=== PATIENT | female | born 1955 | race Two or more races ===

== ENCOUNTER 2021-02-08 01:49 | Inpatient (IN) | payer OTHER, SELFPAY ==
[2021-02-08] VITALS (13 sets, daily range): BP systolic 108–164; BP diastolic 47–63; PULSE 70–104; RESP 20–28; TEMP 36.6–37.2; O2SAT 92–100; BMI 35.8; BMI 36.2
--- NOTE | ~2021-02-08 | XR_ITS ---
EXAMINATION: XR CHEST CLINICAL INFORMATION: Shortness of breath COMPARISON: 01/11/2012 TECHNIQUE: Frontal view of the chest was obtained. FINDINGS: Cardiac leads overlie the chest. The lungs are well expanded. There is no focal consolidation, edema, or effusion. Bronchial wall thickening noted. No pneumothorax. The cardiomediastinal silhouette is within normal limits. No acute osseous abnormality. XR/XR chest 1V IMPRESSION: No dense consolidation. Bronchial wall thickening can be seen with a small airways process such as asthma or atypical/viral infection.
--- NOTE | 2021-02-08 02:02 | ECG_ITS ---
Test Reason : sob Blood Pressure : / mmHG Vent. Rate : 070 BPM Atrial Rate : 070 BPM P-R Int : 164 ms QRS Dur : 088 ms QT Int : 392 ms P-R-T Axes : 045 041 112 degrees QTc Int : 423 ms Normal sinus rhythm Nonspecific T wave abnormality Inferior leads Lateral leads Abnormal ECG When compared with ECG of 11-JAN-2012 12:44, Premature ventricular complexes are no longer Present T wave inversion less evident in Inferior leads Referred By: Petra Patino Electronically Signed By:AGUILAR EUBANKS MD
--- NOTE | 2021-02-08 02:02 | ED.SOB ---
HPI - SOB/Dyspnea General Chief Complaint: Dyspnea Stated Complaint: difficulty breathing Time Seen by Provider: 02/08/21 02:02 Source: patient Mode of arrival: EMS History of Present Illness HPI Narrative: 65-year-old female smoker, history of asthma/diabetes/CKD presents via EMS with worsening shortness of breath over the past 2 days with dry cough and stating that she has been consistently using her inhaler every 4 hours without improvement. She denies any associated fever, chills, chest pain/palpitations, lower extremity swelling or orthopnea. Related Data Allergies Allergy/AdvReac Type Severity Reaction Status Date / Time lisinopril [From ZESTRIL] Allergy Intermediate CHOKING Unverified 12/14/19 15:15 amlodipine Allergy Unknown Verified 02/08/21 01:59 Review of Systems Review of Systems: Pertinent positives and negatives as stated in HPI 10 point review of systems is otherwise negative. [facility] Past Medical History Source: nursing notes reviewed Medical History Asthma Diabetes HTN (hypertension) Social History Social History Alcohol intake: unknown Patient Tobacco Use Status: Former Tobacco user Use of substances other than those prescribed or required for medical reasons: No Advance Directives: No Advance Directives Information Provided: Yes Physical Exam Vital Signs: Vital Signs: Last Vital Signs Temp 98.9 F 02/08/21 01:54 Pulse 95 02/08/21 03:29 Resp 20 02/08/21 01:54 BP 164/63 H 02/08/21 01:54 Pulse Ox 96 02/08/21 01:54 Body Mass Index 35.8 VITAL SIGNS: Reviewed. GENERAL: Well developed, well nourished, in no acute distress. HEAD: Normocephalic/atraumatic EYES: PERRLA, EOMI OROPHARYNX: no oral lesions noted, posterior pharynx clear NECK: Supple, no adenopathy LUNGS: Decreased air movement with expiratory wheeze, mild tachypnea SpO2<96> CARDIOVASCULAR: Regular rate and rhythm without noted murmurs, no JVD or lower extremity edema. ABDOMEN: Soft, non-tender, non-distended with bowel sounds. SKIN: Inspection of the skin reveals no rashes NEUROLOGIC: Alert and oriented x 4. Course Course Course Narrative: 65-year-old female with history and clinical presentation consistent with asthma exacerbation but will rule out cardiopulmonary etiologies. Review of all investigations consistent with asthma exacerbation and although the BNP is noted to be slightly elevated as well as the potassium, however this is thought to be secondary to underlying CKD. Patient has received 2- hour long albuterol treatments with magnesium sulfate and steroids provided. On reassessment patient is improved, but remains short of breath with expiratory wheezing and noted to be 90-91% when sleeping. I discussed the case with the inpatient hospitalist who accepts admission. MDM - SOB/Dyspnea Lab Data Result diagrams: 02/08/21 02:13 02/08/21 02:13 Labs: Lab Results 02/08/21 02/08/21 02/08/21 Range/Units 02:09 02:12 02:13 WBC 6.4 (4.8-10.8) X10*3/uL RBC 3.70 L (4.20-5.50) X10*6/uL Hgb 10.2 L (12.0-16.0) g/dl Hct 32.0 L (37.0-47.0) % MCV 86.5 (80.0-98.0) fL MCH 27.6 (27.0-33.0) pg MCHC 31.9 (31.0-35.0) g/dl RDW 14.1 (11.0-16.0) % Plt Count 145 L (160-400) X10*3/uL MPV 12.8 H (9.4-12.3) fL Immature Gran % (Auto) 0.5 H (0.0-0.4) % Neut % (Auto) 70.7 (45-73) % Lymph % (Auto) 14.4 L (20-40) % [place] % (Auto) 10.2 (2-11) % Eos % (Auto) 4.0 (0-4) % Baso % (Auto) 0.2 (0-2) % Lymph # (Auto) 0.9 L (1.2-4.9) X10*3/uL [place] # (Auto) 0.7 (0.1-1.2) X10*3/uL Eos # (Auto) 0.3 (0.0-0.4) X10*3/uL Baso # (Auto) 0.0 (0.0-0.2) X10*3/uL Abs Immat Gran (auto) 0.03 (0.00-0.03) X10*3/uL Absolute Neuts (auto) 4.6 (2.0-8.3) x10*3/uL Absolute Nucleated RBC 0.000 (0.0-0.012) X10*3/uL Nucleated RBC % (auto) 0.0 (0.0-0.2) /100WBC Sodium (135-145) mmol/L Potassium (3.3-5.1) mmol/L Chloride (96-108) mmol/L Carbon Dioxide (22-29) mmol/L Anion Gap (12-20) BUN (9-16) mg/dL Creatinine (0.5-1.4) mg/dL Estim Creat Clear Calc Estimated GFR POC Glucose 192 H (60-115) mg/dL Random Glucose (60-115) mg/dL Calcium (8.4-10.2) mg/dL Magnesium (1.6-2.6) mg/dL Total Bilirubin (0.0-1.0) mg/dL AST (5-31) U/L ALT (0-31) U/L Alkaline Phosphatase (39-117) U/L B-Natriuretic Peptide (<100) pg/mL Total Protein (6.5-8.0) g/dL Albumin (3.5-5.0) g/dL COVID-19 (LETTY) Negative (Negative) COVID-19 Clin Com See Note 02/08/21 02/08/21 Range/Units 02:13 02:13 WBC (4.8-10.8) X10*3/uL RBC (4.20-5.50) X10*6/uL Hgb (12.0-16.0) g/dl Hct (37.0-47.0) % MCV (80.0-98.0) fL MCH (27.0-33.0) pg MCHC (31.0-35.0) g/dl RDW (11.0-16.0) % Plt Count (160-400) X10*3/uL MPV (9.4-12.3) fL Immature Gran % (Auto) (0.0-0.4) % Neut % (Auto) (45-73) % Lymph % (Auto) (20-40) % [place] % (Auto) (2-11) % Eos % (Auto) (0-4) % Baso % (Auto) (0-2) % Lymph # (Auto) (1.2-4.9) X10*3/uL [place] # (Auto) (0.1-1.2) X10*3/uL Eos # (Auto) (0.0-0.4) X10*3/uL Baso # (Auto) (0.0-0.2) X10*3/uL Abs Immat Gran (auto) (0.00-0.03) X10*3/uL Absolute Neuts (auto) (2.0-8.3) x10*3/uL Absolute Nucleated RBC (0.0-0.012) X10*3/uL Nucleated RBC % (auto) (0.0-0.2) /100WBC Sodium 136 (135-145) mmol/L Potassium 5.6 H (3.3-5.1) mmol/L Chloride 108 (96-108) mmol/L Carbon Dioxide 21 L (22-29) mmol/L Anion Gap 13 (12-20) BUN 30 H (9-16) mg/dL Creatinine 2.16 H (0.5-1.4) mg/dL Estim Creat Clear Calc 28.9 Estimated GFR 23 POC Glucose (60-115) mg/dL Random Glucose 194 H (60-115) mg/dL Calcium 8.2 L (8.4-10.2) mg/dL Magnesium 1.3 L* (1.6-2.6) mg/dL Total Bilirubin 0.2 (0.0-1.0) mg/dL AST 14 (5-31) U/L ALT 14 (0-31) U/L Alkaline Phosphatase 83 (39-117) U/L B-Natriuretic Peptide 125 H (<100) pg/mL Total Protein 6.7 (6.5-8.0) g/dL Albumin 3.7 (3.5-5.0) g/dL COVID-19 (LETTY) (Negative) COVID-19 Clin Com ECG Data Attestation: I personally reviewed and interpreted this ECG as follows: Prior ECG tracings: available for review (01/11/2012 no significant changes from prior) Interpretation: Normal sinus rhythm, HR -70, no STEMI, LA/QRS/QTC are within normal limits. Discharge Plan Discharge Patient Disposition: Admitted As Inpatient
[2021-02-08 02:16] LABS: Glucose, Whole Blood 192 mg/dL (60-115)
[2021-02-08 02:17] LABS: MANUAL DIFF FLAG NO
[2021-02-08] MEDS: Albuterol Sulfate (0.083%) 2.5 MG/3 ML VIAL.NEB 10 MG INHALE ×2 (02:17→03:27)
[2021-02-08 02:20] LABS: Basophils Percent Auto 0.2 % (0-2); Eosinophils Absolute Auto 0.3 X10*3/uL (0.0-0.4); Hemoglobin 10.2 g/dl (12.0-16.0); Imm Gran Abs Auto 0.03 X10*3/uL (0.00-0.03); Imm Gran Pct Auto 0.5 % (0.0-0.4); Lymphocytes Absolute Auto 0.9 X10*3/uL (1.2-4.9); Lymphocytes Percent Auto 14.4 % (20-40); Mean Corpuscular HGB Conc 31.9 g/dl (31.0-35.0); Mean Corpuscular Hemoglobin 27.6 pg (27.0-33.0); Mean Corpuscular Volume 86.5 fL (80.0-98.0); Mean Platelet Volume 12.8 fL (9.4-12.3); Monocytes Absolute Auto 0.7 X10*3/uL (0.1-1.2); Monocytes Percent Auto 10.2 % (2-11); Neutrophils Absolute Auto 4.6 x10*3/uL (2.0-8.3); Neutrophils Percent Auto 70.7 % (45-73); Platelet Count 145 X10*3/uL (160-400); Red Cell Distribution Width 14.1 % (11.0-16.0); White Blood Count 6.4 X10*3/uL (4.8-10.8)
[2021-02-08 02:35] LABS: COVID-19 Test Negative (Negative); IDNOW Serial# 9DD0AD1C
[2021-02-08 02:54] LABS: Alanine Aminotransferase 14 U/L (0-31); Albumin Level 3.7 g/dL (3.5-5.0); Alkaline Phosphatase 83 U/L (39-117); Anion Gap 13 (12-20); Aspartate Amino Transferase 14 U/L (5-31); Bilirubin Total 0.2 mg/dL (0.0-1.0); Blood Urea Nitrogen 30 mg/dL (9-16); Calcium 8.2 mg/dL (8.4-10.2); Carbon Dioxide 21 mmol/L (22-29); Chloride 108 mmol/L (96-108); Creatinine Clr Calc Pharmacy 28.9; Estimated Glomerular Filt Rate 23; Glucose Random 194 mg/dL (60-115); Magnesium 1.3 mg/dL (1.6-2.6); Potassium 5.6 mmol/L (3.3-5.1); Sodium 136 mmol/L (135-145); Total Protein 6.7 g/dL (6.5-8.0)
[2021-02-08] MEDS: methylPREDNISolone Sod Succ 125 MG/2 ML VIAL IVPUSH (03:24)
[2021-02-08] MEDS: Magnesium Sulfate/D5W 1 GM/100 ML PIGGYBACK IV (03:24)
[2021-02-08 04:02] LABS: B Type Natriuretic Peptide 125 pg/mL (<100)
--- NOTE | 2021-02-08 04:13 | PM.IMHP ---
History of Present Illness Date of Service: 02/08/21 Chief Complaint: SOB 65-year-old female with a past medical history of hypertension, hyperlipidemia, diabetes, asthma, chronic kidney disease presented to the hospital with a chief complaint of shortness of breath. Patient reported that over the past 2 days she has been having shortness of breath, constant in nature; not improving with her home inhalers; hence decided to come to the ER for further evaluation. Denies any cough or sputum production. Denies any GI or symptoms. Denies any chest pain palpitations lightheadedness or dizziness. Review of all other systems is negative except mentioned above ER course: Per ER team patient received multiple doses of nebulizer treatments and steroids and still wheezing hence decided admitted to the hospital for acute asthma exacerbation. Also noted to have potassium 5.6 and low magnesium. Magnesium has been repleted. [facility] Medical History Asthma Diabetes HTN (hypertension) Pertinent family history: Sister had kidney disease Social History Alcohol intake: unknown Patient Tobacco Use Status: Former Tobacco user Use of substances other than those prescribed or required for medical reasons: No Advance Directives: No Advance Directives Information Provided: Yes Meds Allergies Allergy/AdvReac Type Severity Reaction Status Date / Time lisinopril [From ZESTRIL] Allergy Intermediate [place]OKING Unverified 12/14/19 15:15 amlodipine Allergy Unknown Verified 02/08/21 01:59 Active Medications: Current Medications Acetaminophen (Acetaminophen 325 Mg Tablet) 650 mg PO Q6H PRN PRN Reason: Pain, Mild (Pain Scale 1-3) Albuterol Sulfate (Albuterol Sulfate (0.083%) 2.5 Mg/3 Ml Vial.Neb) 2.5 mg INHALE RQ4H WHILE AWAKE [place] Dextrose (Dextrose 50 % 25 Gm/50 Ml Vial) 25 gm IVPUSH Q15M PRN; Protocol PRN Reason: per Hypoglycemia Standing Ord. Enoxaparin Sodium (Enoxaparin Sodium 40 Mg/0.4 Ml Syringe) 40 mg SUBCUT Q24H [place] Glucose (Glucose Gel 15 Gm Gel..Gram.) 15 gm PO Q15M PRN; Protocol PRN Reason: per Hypoglycemia Standing Ord. Sodium Chloride (Ns) 1,000 mls @ 50 mls/hr IVCONT .Q20H [facility] Insulin Human Lispro (Insulin Lispro 100 Unit/Ml 3 Ml Vial) 0 unit SUBCUT QIDACHS [facility]; Protocol Melatonin (Melatonin 3 Mg Tablet) 6 mg PO BEDTIME PRN PRN Reason: Insomnia Methylprednisolone Sodium Succinate (Methylprednisolone Sod Succ 40 Mg/Ml Vial) 40 mg IVPUSH Q8H [place] Senna (Sennosides 8.6 Mg Tablet) 17.2 mg PO BEDTIME PRN PRN Reason: Constipation Sodium Chloride (0.9 % Sodium Chloride Flush 3 Ml Syringe) 3 ml IVFLUSH QSHIFT [place] Physical Exam Vital Signs and Narrative: Vital Signs: Last Vital Signs Temp 98.9 F 02/08/21 01:54 Pulse 99 02/08/21 04:00 Resp 28 H 02/08/21 04:00 BP 125/56 L 02/08/21 04:00 Pulse Ox 93 02/08/21 04:00 Body Mass Index 35.8 Gen: Appears be in no acute distress HEENT: NCAT, Moist mucosa. Pulmonary: Bilateral expiratory wheezing noted fair air entry CVS: Normal S1-S2 Abdomen: BS+, Soft, Nontender Extremities: Warm well perfused Neuro: Alert and awake. Results Labs CBC and Chem 7: 02/08/21 02:13 02/08/21 02:13 Labs: Laboratory Results - last 24 hr 02/08/21 02/08/21 02/08/21 02:09 02:12 02:13 MCV 86.5 MCH 27.6 MCHC 31.9 RDW 14.1 Plt Count 145 L MPV 12.8 H Immature Gran % (Auto) 0.5 H Neut % (Auto) 70.7 Lymph % (Auto) 14.4 L [place] % (Auto) 10.2 Eos % (Auto) 4.0 Baso % (Auto) 0.2 Lymph # (Auto) 0.9 L [place] # (Auto) 0.7 Eos # (Auto) 0.3 Baso # (Auto) 0.0 Abs Immat Gran (auto) 0.03 Absolute Neuts (auto) 4.6 Absolute Nucleated RBC 0.000 Nucleated RBC % (auto) 0.0 Anion Gap Estim Creat Clear Calc Estimated GFR POC Glucose 192 H Random Glucose Calcium Magnesium Total Bilirubin AST ALT Alkaline Phosphatase B-Natriuretic Peptide Total Protein Albumin COVID-19 (LETTY) Negative COVID-19 Clin Com See Note 02/08/21 02/08/21 02:13 02:13 MCV MCH MCHC RDW Plt Count MPV Immature Gran % (Auto) Neut % (Auto) Lymph % (Auto) [place] % (Auto) Eos % (Auto) Baso % (Auto) Lymph # (Auto) [place] # (Auto) Eos # (Auto) Baso # (Auto) Abs Immat Gran (auto) Absolute Neuts (auto) Absolute Nucleated RBC Nucleated RBC % (auto) Anion Gap 13 Estim Creat Clear Calc 28.9 Estimated GFR 23 POC Glucose Random Glucose 194 H Calcium 8.2 L Magnesium 1.3 L* Total Bilirubin 0.2 AST 14 ALT 14 Alkaline Phosphatase 83 B-Natriuretic Peptide 125 H Total Protein 6.7 Albumin 3.7 COVID-19 (LETTY) COVID-19 Clin Com Imaging Radiologist's Impressions: Impressions Chest X-Ray 02/08/21 02:02 IMPRESSION: No dense consolidation. Bronchial wall thickening can be seen with a small airways process such as asthma or atypical/viral infection. Assessment and Plan (1) Asthma exacerbation: Status: Acute (2) Diabetes: Status: Acute 60-year-old female with a past medical history of hypertension, hyperlipidemia, diabetes, chronic kidney disease presented to the hospital with a chief complaint of shortness of breath. Noted to be in acute asthma exacerbation. Admitted for further management. Acute asthma exacerbation: Continue Solu-Medrol IV t.i.d.. Nebulizations. Azithromycin. Hypomagnesemia: Repleted Hyperkalemia: Patient received albuterol nebulizers. Repeat levels pending. EKG showed no acute Changes. Patient on Aldactone at home. Will hold for now. Chronic kidney disease: Unknown baseline. Patient does not recall her baseline creatinine. Will defer to the primary did touch base with the PCP to obtain records. Monitor renal function. Avoid nephrotoxins for now. Diabetes: Insulin sliding scale which DVT prophylaxis: Lovenox Code status: DNI only. Patient agrees for CPR but mentions strictly no for intubation, saying that her family members after intubation. Quality Stroke Does the patient have a stroke diagnosis?: No VTE Prior VTE?: No VTE Risk Level:: Medical - moderate - high VTE Device Contraindication: Treatment Not Indicated VTE Drug Contraindication: N/A - Med Ordered
[2021-02-08] MEDS: Benzonatate 100 MG CAPSULE PO ×2 (04:33→20:29)
[2021-02-08 04:40] LABS: MANUAL DIFF FLAG NO
[2021-02-08 04:41] LABS: Basophils Percent Auto 0.1 % (0-2); Eosinophils Absolute Auto 0.1 X10*3/uL (0.0-0.4); Hemoglobin 9.9 g/dl (12.0-16.0); Imm Gran Abs Auto 0.03 X10*3/uL (0.00-0.03); Imm Gran Pct Auto 0.4 % (0.0-0.4); Lymphocytes Absolute Auto 0.7 X10*3/uL (1.2-4.9); Lymphocytes Percent Auto 10.3 % (20-40); Mean Corpuscular HGB Conc 31.9 g/dl (31.0-35.0); Mean Corpuscular Hemoglobin 27.5 pg (27.0-33.0); Mean Corpuscular Volume 86.1 fL (80.0-98.0); Mean Platelet Volume 12.9 fL (9.4-12.3); Monocytes Absolute Auto 0.4 X10*3/uL (0.1-1.2); Monocytes Percent Auto 5.1 % (2-11); Neutrophils Absolute Auto 5.8 x10*3/uL (2.0-8.3); Neutrophils Percent Auto 82.1 % (45-73); Platelet Count 134 X10*3/uL (160-400); Red Cell Distribution Width 14.2 % (11.0-16.0)
[2021-02-08] MEDS: Azithromycin 500 MG TABLET PO (04:58)
[2021-02-08 04:59] LABS: Anion Gap 13 (12-20); Blood Urea Nitrogen 32 mg/dL (9-16); Calcium 8.1 mg/dL (8.4-10.2); Carbon Dioxide 21 mmol/L (22-29); Chloride 107 mmol/L (96-108); Creatinine Clr Calc Pharmacy 28.6; Estimated Glomerular Filt Rate 23; Glucose Random 312 mg/dL (60-115); Potassium 4.8 mmol/L (3.3-5.1); Sodium 136 mmol/L (135-145)
[2021-02-08] MEDS: 0.9 % Sodium Chloride 1,000 ML 50 ML IVCONT (05:00)
[2021-02-08] MEDS: Insulin Lispro 100 UNIT/ML 3 ML VIAL SUBCUT ×4 (07:17→20:29)
[2021-02-08] MEDS: methylPREDNISolone Sod Succ 40 MG/ML VIAL IVPUSH ×2 (07:17→16:02)
[2021-02-08 07:18] LABS: Glucose, Whole Blood 369 mg/dL (60-115)
[2021-02-08] MEDS: Albuterol Sulfate (0.083%) 2.5 MG/3 ML VIAL.NEB INHALE (08:22)
[2021-02-08] MEDS: Insulin Glargine,Hum.rec.anlog 100 UNIT/ML 10 ML VIAL 55 UNIT SUBCUT (08:45)
[2021-02-08] MEDS: LORazepam 1 MG TABLET PO (08:45)
[2021-02-08] MEDS: Enoxaparin Sodium 30 MG/0.3 ML SYRINGE SUBCUT (08:45)
[2021-02-08 10:20] LABS: Adenovirus PCR Not Detected (Not Detect.); Bordetella parapertussis PCR Not Detected (Not Detect.); Bordetella pertussis PCR Not Detected (Not Detect.); Chlamydia pneumoniae PCR Not Detected (Not Detect.); Coronavirus 229E PCR Not Detected (Not Detect.); Coronavirus HKU1 PCR Not Detected (Not Detect.); Coronavirus NL63 PCR Not Detected (Not Detect.); Coronavirus OC43 PCR Not Detected (Not Detect.); Human metapneumovirus PCR Not Detected (Not Detect.); Influenza A PCR Not Detected (Not Detect.); Influenza B PCR Not Detected (Not Detect.); Mycoplasma pneumoniae PCR Not Detected (Not Detect.); Parainfluenza 1 PCR Not Detected (Not Detect.); Parainfluenza 2 PCR Not Detected (Not Detect.); Parainfluenza 3 PCR Not Detected (Not Detect.); Parainfluenza 4 PCR Not Detected (Not Detect.); RSV PCR Not Detected (Not Detect.); SARS-CoV-2 PCR Not Detected (Not Detect.)
[2021-02-08 11:08] LABS: Rhino/Enterovirus PCR Detected (Not Detect.)
[2021-02-08] MEDS: Albuterol/Iprat 2.5/0.5MG 3 ML AMPUL.NEB INHALE ×3 (12:02→19:25)
[2021-02-08 12:14] LABS: Glucose, Whole Blood 420 mg/dL (60-115)
--- NOTE | 2021-02-08 13:03 | HO.PM.IMPN ---
Subjective Subjective Date of Service: 02/08/21 Interval History: dyspnea + wheeze no productive cough no fever no chest pain Review of Systems Review of Systems: Yes all other systems are reviewed and are negative Physical Exam Vital Signs: Vital Signs: Last Vital Signs Temp 98.7 F 02/08/21 07:01 Pulse 98 02/08/21 12:03 Resp 26 H 02/08/21 07:01 BP 131/51 L 02/08/21 07:01 Pulse Ox 96 02/08/21 07:01 Body Mass Index 35.8 Gen: moderate respiratory distress HEENT: sclera anicteric, moist mucus membranes Neck: supple Lungs: diffuse expiratory wheezes, diminished air entry Heart: regular rate and rhythm, no murmurs Abd: obese, soft, non-tender, non-distended Ext: no edema Skin: warm/well-perfused Neuro: alert and oriented x3, no focal findings Psych: appropriate affect Objective Data Active Medications Acetaminophen (Acetaminophen 325 Mg Tablet) 650 mg PO Q6H PRN PRN Reason: Pain, Mild (Pain Scale 1-3) Albuterol Sulfate (Albuterol Sulfate (0.083%) 2.5 Mg/3 Ml Vial.Neb) 2.5 mg INHALE Q2H PRN PRN Reason: Shortness of Breath/Wheezing Last Admin: 02/08/21 08:22 Dose: 2.5 mg Documented by: CELESTINA Albuterol/Ipratropium (Albuterol/Iprat 2.5/0.5mg 3 Ml Ampul.Neb) 3 ml INHALE RQ4H WHILE AWAKE [facility] Last Admin: 02/08/21 12:02 Dose: 3 ml Documented by: CELESTINA Atorvastatin Calcium (Atorvastatin Calcium 10 Mg Tablet) 10 mg PO BEDTIME [facility] Dextrose (Dextrose 50 % 25 Gm/50 Ml Vial) 25 gm IVPUSH Q15M PRN; Protocol PRN Reason: per Hypoglycemia Standing Ord. Enoxaparin Sodium (Enoxaparin Sodium 30 Mg/0.3 Ml Syringe) 30 mg SUBCUT DAILY [facility] Last Admin: 02/08/21 08:45 Dose: 30 mg Documented by: FELIX Ergocalciferol (Ergocalciferol (Vitamin D2) 1,250 Mcg Capsule) mcg PO QWEEK [facility] Glucose (Glucose Gel 15 Gm Gel..Gram.) 15 gm PO Q15M PRN; Protocol PRN Reason: per Hypoglycemia Standing Ord. Sodium Chloride (Ns) 1,000 mls @ 50 mls/hr IVCONT .Q20H [facility] Last Admin: 02/08/21 05:00 Dose: 50 mls/hr Documented by: MARLENY Insulin Glargine (Insulin Glargine,Hum.Rec.Anlog 100 Unit/Ml 10 Ml Vial) 55 unit SUBCUT DAILY [facility] Last Admin: 02/08/21 08:45 Dose: 55 unit Documented by: FELIX Insulin Glargine (Insulin Glargine,Hum.Rec.Anlog 100 Unit/Ml 10 Ml Vial) 45 unit SUBCUT BEDTIME [facility] Insulin Human Lispro (Insulin Lispro 100 Unit/Ml 3 Ml Vial) 0 unit SUBCUT QIDACHS [facility]; Protocol Last Admin: 02/08/21 07:17 Dose: 10 unit Documented by: FELIX Lorazepam (Lorazepam 1 Mg Tablet) 1 mg PO BID PRN PRN Reason: Insomnia Last Admin: 02/08/21 08:45 Dose: 1 mg Documented by: EFLIX Melatonin (Melatonin 3 Mg Tablet) 6 mg PO BEDTIME PRN PRN Reason: Insomnia Methylprednisolone Sodium Succinate (Methylprednisolone Sod Succ 40 Mg/Ml Vial) 40 mg IVPUSH Q8H [facility] Last Admin: 02/08/21 07:17 Dose: 40 mg Documented by: FELIX Mirtazapine (Mirtazapine 15 Mg Tablet) 45 mg PO BEDTIME [facility] Non-Formulary Medication (Nebivolol) 1 tab PO DAILY [facility] Senna (Sennosides 8.6 Mg Tablet) 17.2 mg PO BEDTIME PRN PRN Reason: Constipation Sodium Chloride (0.9 % Sodium Chloride Flush 3 Ml Syringe) 3 ml IVFLUSH QSHIFT [facility] Last Admin: 02/08/21 07:03 Dose: Not Given Documented by: FELIX Non-Admin Reason: Med Not Available Zolpidem Tartrate (Zolpidem Tartrate 5 Mg Tablet) 5 mg PO BEDTIME PRN PRN Reason: insomnia Labs CBC & Chem 7: 02/08/21 04:37 02/08/21 04:37 Labs: Laboratory Results - last 24 hr 02/08/21 02/08/21 02/08/21 02:09 02:12 02:13 MCV 86.5 MCH 27.6 MCHC 31.9 RDW 14.1 Plt Count 145 L MPV 12.8 H Immature Gran % (Auto) 0.5 H Neut % (Auto) 70.7 Lymph % (Auto) 14.4 L [place] % (Auto) 10.2 Eos % (Auto) 4.0 Baso % (Auto) 0.2 Lymph # (Auto) 0.9 L [place] # (Auto) 0.7 Eos # (Auto) 0.3 Baso # (Auto) 0.0 Abs Immat Gran (auto) 0.03 Absolute Neuts (auto) 4.6 Absolute Nucleated RBC 0.000 Nucleated RBC % (auto) 0.0 Anion Gap Estim Creat Clear Calc Estimated GFR POC Glucose 192 H Random Glucose Calcium Magnesium Total Bilirubin AST ALT Alkaline Phosphatase B-Natriuretic Peptide Total Protein Albumin Respiratory Panel [place] Adenovirus (Rapid PCR) B.pert (TEM-PCR) B.parapertussis DNA PCR C. pneumoniae DNA (PCR) Coronavirus OC43 (PCR) Coronavirus HKU1 (PCR) Coronavirus 229E (PCR) COVID-19 (LETTY) Negative COVID-19 Clin Com See Note Coronavirus NL63 (PCR) Human Metapneumovir PCR Influenza A (RT-PCR) Influenza B (RT-PCR) M. pneumoniae (PCR) Parainfluenza 1 (PCR) Parainfluenza 2 (PCR) Parainfluenza 3 (PCR) Parainfluenza 4 (PCR) RSV (PCR) Entero/Rhino (PCR) SARS-CoV-2 RNA (RT-PCR) 02/08/21 02/08/21 02/08/21 02:13 02:13 04:37 MCV MCH MCHC RDW Plt Count MPV Immature Gran % (Auto) Neut % (Auto) Lymph % (Auto) [place] % (Auto) Eos % (Auto) Baso % (Auto) Lymph # (Auto) [place] # (Auto) Eos # (Auto) Baso # (Auto) Abs Immat Gran (auto) Absolute Neuts (auto) Absolute Nucleated RBC Nucleated RBC % (auto) Anion Gap 13 13 Estim Creat Clear Calc 28.9 28.6 Estimated GFR 23 23 POC Glucose Random Glucose 194 H 312 H Calcium 8.2 L 8.1 L Magnesium 1.3 L* Total Bilirubin 0.2 AST 14 ALT 14 Alkaline Phosphatase 83 B-Natriuretic Peptide 125 H Total Protein 6.7 Albumin 3.7 Respiratory Panel Perez Adenovirus (Rapid PCR) B.pert (TEM-PCR) B.parapertussis DNA PCR C. pneumoniae DNA (PCR) Coronavirus OC43 (PCR) Coronavirus HKU1 (PCR) Coronavirus 229E (PCR) COVID-19 (LETTY) COVID-19 Clin Com Coronavirus NL63 (PCR) Human Metapneumovir PCR Influenza A (RT-PCR) Influenza B (RT-PCR) M. pneumoniae (PCR) Parainfluenza 1 (PCR) Parainfluenza 2 (PCR) Parainfluenza 3 (PCR) Parainfluenza 4 (PCR) RSV (PCR) Entero/Rhino (PCR) SARS-CoV-2 RNA (RT-PCR) 02/08/21 02/08/21 02/08/21 04:37 07:12 10:03 MCV 86.1 MCH 27.5 MCHC 31.9 RDW 14.2 Plt Count 134 L MPV 12.9 H Immature Gran % (Auto) 0.4 Neut % (Auto) 82.1 H Lymph % (Auto) 10.3 L [place] % (Auto) 5.1 Eos % (Auto) 2.0 Baso % (Auto) 0.1 Lymph # (Auto) 0.7 L [place] # (Auto) 0.4 Eos # (Auto) 0.1 Baso # (Auto) 0.0 Abs Immat Gran (auto) 0.03 Absolute Neuts (auto) 5.8 Absolute Nucleated RBC 0.000 Nucleated RBC % (auto) 0.0 Anion Gap Estim Creat Clear Calc Estimated GFR POC Glucose 369 H* Random Glucose Calcium Magnesium Total Bilirubin AST ALT Alkaline Phosphatase B-Natriuretic Peptide Total Protein Albumin Respiratory Panel Perez See Note Adenovirus (Rapid PCR) Not Detected B.pert (TEM-PCR) Not Detected B.parapertussis DNA PCR Not Detected C. pneumoniae DNA (PCR) Not Detected Coronavirus OC43 (PCR) Not Detected Coronavirus HKU1 (PCR) Not Detected Coronavirus 229E (PCR) Not Detected COVID-19 (LETTY) COVID-19 Clin Com Coronavirus NL63 (PCR) Not Detected Human Metapneumovir PCR Not Detected Influenza A (RT-PCR) Not Detected Influenza B (RT-PCR) Not Detected M. pneumoniae (PCR) Not Detected Parainfluenza 1 (PCR) Not Detected Parainfluenza 2 (PCR) Not Detected Parainfluenza 3 (PCR) Not Detected Parainfluenza 4 (PCR) Not Detected RSV (PCR) Not Detected Entero/Rhino (PCR) Detected A SARS-CoV-2 RNA (RT-PCR) Not Detected 02/08/21 12:01 MCV MCH MCHC RDW Plt Count MPV Immature Gran % (Auto) Neut % (Auto) Lymph % (Auto) [place] % (Auto) Eos % (Auto) Baso % (Auto) Lymph # (Auto) [place] # (Auto) Eos # (Auto) Baso # (Auto) Abs Immat Gran (auto) Absolute Neuts (auto) Absolute Nucleated RBC Nucleated RBC % (auto) Anion Gap Estim Creat Clear Calc Estimated GFR POC Glucose 420 H* Random Glucose Calcium Magnesium Total Bilirubin AST ALT Alkaline Phosphatase B-Natriuretic Peptide Total Protein Albumin Respiratory Panel [place] Adenovirus (Rapid PCR) B.pert (TEM-PCR) B.parapertussis DNA PCR C. pneumoniae DNA (PCR) Coronavirus OC43 (PCR) Coronavirus HKU1 (PCR) Coronavirus 229E (PCR) COVID-19 (LETTY) COVID-19 Clin Com Coronavirus NL63 (PCR) Human Metapneumovir PCR Influenza A (RT-PCR) Influenza B (RT-PCR) M. pneumoniae (PCR) Parainfluenza 1 (PCR) Parainfluenza 2 (PCR) Parainfluenza 3 (PCR) Parainfluenza 4 (PCR) RSV (PCR) Entero/Rhino (PCR) SARS-CoV-2 RNA (RT-PCR) Assessment and Plan (1) Asthma exacerbation: Status: Acute Assessment and Plan: hospital d#1 65yo F with HTN, HLD, DM2, asthma, CKD4 admitted for asthma exacerbation due to viral infection # asthma exacerbation - continue IV steroids, standing/prn nebs # enterovirus/rhinovirus infection - d/c azithromycin # acute hypoxic resp failure - wean O2 as tolerated # hypoMg - replete, recheck in am # hyperK - resolved p albuterol/ hold spironolactone + olmesarta # HTN - continue nevibolol # HLD - continue simvastatin # CKD4 - ?baseline Cr- obtain records from PCP - avoid nephrotoxins # mood disorder - continue mirtazapine # DM2 - basal/bolus insulin # VTE px - LMWH Quality Stroke Does the patient have a stroke diagnosis?: No VTE Prior VTE?: No VTE Risk Level:: Medical - moderate - high VTE Device Contraindication: Treatment Not Indicated VTE Drug Contraindication: N/A - Med Ordered
[2021-02-08 16:14] LABS: Appearance Urine HAZY; Color Urine YELLOW; Glucose Urine UA >=1000 MG/DL (NEG); Leukocyte Esterase Urine NEG (NEG); Nitrite Urine NEG (NEG); PH 5.5 (5.0-8.0); Specific Gravity - Urine 1.025 (1.005-1.025); UACC Culture Trigger NO; Urine Blood 2+ (NEG); Urine Ketones NEG (NEG); Urine Protein 2+ MG/DL (NEG-TRACE)
[2021-02-08 16:20] LABS: Mucus Urine 1+ /LPF; Renal Epithelial Cells Urine 1+ /LPF; Squamous Epithelial Cell Urine TRACE /LPF
[2021-02-08 16:21] LABS: Bacteria Urine TRACE /LPF; RBC Urine 0-2 /HPF (0); WBC Urine 0 /HPF (0-4)
[2021-02-08 18:09] LABS: Glucose, Whole Blood 372 mg/dL (60-115)
[2021-02-08 19:47] LABS: Glucose, Whole Blood 358 mg/dL (60-115)
[2021-02-08] MEDS: Mirtazapine 15 MG TABLET 45 MG PO (20:28)
[2021-02-08] MEDS: Atorvastatin Calcium 10 MG TABLET PO (20:28)
[2021-02-08] MEDS: Insulin Glargine,Hum.rec.anlog 100 UNIT/ML 10 ML VIAL 45 UNIT SUBCUT (20:29)
[2021-02-08] MEDS: Melatonin 3 MG TABLET 6 MG PO (20:31)
[2021-02-08] MEDS: 0.9 % Sodium Chloride Flush 3 ML SYRINGE IVFLUSH (20:38)
[2021-02-09] VITALS (9 sets, daily range): BP systolic 130–160; BP diastolic 43–61; PULSE 78–95; RESP 16–21; TEMP 36.6–37.5; O2SAT 92–99
--- NOTE | 2021-02-09 | ECG_ITS ---
Test Reason : POTASSIUM Blood Pressure : / mmHG Vent. Rate : 080 BPM Atrial Rate : 080 BPM P-R Int : 174 ms QRS Dur : 094 ms QT Int : 372 ms P-R-T Axes : 065 065 163 degrees QTc Int : 429 ms Normal sinus rhythm with sinus arrhythmia Intra-ventricular conduction delay ST & T wave abnormality, consider inferior ischemia Abnormal ECG T wave inversion less evident in Inferior leads Referred By: Samara Scott Electronically Signed By:AGUILAR EUBANKS MD
[2021-02-09] MEDS: methylPREDNISolone Sod Succ 40 MG/ML VIAL IVPUSH ×3 (00:28→21:24)
[2021-02-09] MEDS: 0.9 % Sodium Chloride 1,000 ML 50 ML IVCONT (00:34)
[2021-02-09 07:10] LABS: Red Cell Distribution Width 14.5 % (11.0-16.0)
[2021-02-09 07:12] LABS: Hemoglobin 9.4 g/dl (12.0-16.0); Mean Corpuscular HGB Conc 31.3 g/dl (31.0-35.0); Mean Corpuscular Volume 86.2 fL (80.0-98.0); Mean Platelet Volume 13.9 fL (9.4-12.3); Platelet Count 162 X10*3/uL (160-400); Red Blood Count 3.48 X10*6/uL (4.20-5.50); White Blood Count 14.5 X10*3/uL (4.8-10.8)
[2021-02-09 07:13] LABS: PLT ABN DIST 1
[2021-02-09 08:00] LABS: Glucose, Whole Blood 377 mg/dL (60-115)
[2021-02-09 08:00] LABS: Glucose, Whole Blood 386 mg/dL (60-115)
[2021-02-09] MEDS: Albuterol/Iprat 2.5/0.5MG 3 ML AMPUL.NEB INHALE ×2 (08:02→19:34)
[2021-02-09 08:25] LABS: Blood Urea Nitrogen 50 mg/dL (9-16); Calcium 8.4 mg/dL (8.4-10.2); Creatinine Clr Calc Pharmacy 25.2; Estimated Glomerular Filt Rate 19; Magnesium 1.7 mg/dL (1.6-2.6)
[2021-02-09] MEDS: Insulin Lispro 100 UNIT/ML 3 ML VIAL SUBCUT ×4 (09:00→21:23)
[2021-02-09 09:01] LABS: Anion Gap 13 (12-20); Carbon Dioxide 22 mmol/L (22-29); Chloride 106 mmol/L (96-108); Sodium 134 mmol/L (135-145)
[2021-02-09] MEDS: Insulin Glargine,Hum.rec.anlog 100 UNIT/ML 10 ML VIAL 60 UNIT SUBCUT (09:01)
[2021-02-09] MEDS: Acetaminophen 325 MG TABLET 650 MG PO (09:01)
[2021-02-09] MEDS: Benzonatate 100 MG CAPSULE PO ×2 (09:01→16:47)
[2021-02-09] MEDS: Enoxaparin Sodium 30 MG/0.3 ML SYRINGE SUBCUT (09:01)
[2021-02-09] MEDS: 0.9 % Sodium Chloride Flush 3 ML SYRINGE IVFLUSH ×3 (09:07→21:24)
[2021-02-09] MEDS: Sodium Zirconium Cyclosilicate 10 GM POWD.PACK PO ×3 (09:39→21:25)
[2021-02-09] MEDS: Calcium Gluconate/NaCl,Iso-Osm 1 GM/50 ML PLAST..BAG IV (09:39)
--- NOTE | 2021-02-09 10:49 | HO.PM.IMPN ---
Subjective Subjective Date of Service: 02/09/21 Interval History: breathing improved no fever states she has CKD, unknown baseline SCr. PCP Fatuma Palencia 6.6 without EKG changes Review of Systems Review of Systems: Yes all other systems are reviewed and are negative Physical Exam Vital Signs: Vital Signs: Last Vital Signs Temp 98.6 F 02/09/21 08:00 Pulse 86 02/09/21 08:02 Resp 16 02/09/21 08:00 BP 130/60 02/09/21 08:00 Pulse Ox 99 02/09/21 08:00 Body Mass Index 36.2 Gen: NAD HEENT: sclera anicteric, moist mucus membranes Neck: supple Lungs: diminished air entry Heart: regular rate and rhythm, no murmurs Abd: obese, soft, non-tender, non-distended Ext: no edema Skin: warm/well-perfused Neuro: alert and oriented x3, no focal findings Psych: appropriate affect Objective Data Active Medications Acetaminophen (Acetaminophen 325 Mg Tablet) 650 mg PO Q6H PRN PRN Reason: Pain, Mild (Pain Scale 1-3) Last Admin: 02/09/21 09:01 Dose: 650 mg Documented by: ELAINE Albuterol Sulfate (Albuterol Sulfate (0.083%) 2.5 Mg/3 Ml Vial.Neb) 2.5 mg INHALE Q2H PRN PRN Reason: Shortness of Breath/Wheezing Last Admin: 02/08/21 08:22 Dose: 2.5 mg Documented by: CELESTINA Albuterol/Ipratropium (Albuterol/Iprat 2.5/0.5mg 3 Ml Ampul.Neb) 3 ml INHALE RQ4H WHILE AWAKE [facility] Last Admin: 02/09/21 08:02 Dose: 3 ml Documented by: CELESTINA Atorvastatin Calcium (Atorvastatin Calcium 10 Mg Tablet) 10 mg PO BEDTIME [facility] Last Admin: 02/08/21 20:28 Dose: 10 mg Documented by: SANAFA Benzonatate (Benzonatate 100 Mg Capsule) 100 mg PO TID PRN PRN Reason: Cough Last Admin: 02/09/21 09:01 Dose: 100 mg Documented by: ELAINE Dextrose (Dextrose 50 % 25 Gm/50 Ml Vial) 25 gm IVPUSH Q15M PRN; Protocol PRN Reason: per Hypoglycemia Standing Ord. Enoxaparin Sodium (Enoxaparin Sodium 30 Mg/0.3 Ml Syringe) 30 mg SUBCUT DAILY [facility] Last Admin: 02/09/21 09:01 Dose: 30 mg Documented by: ELAINE Ergocalciferol (Ergocalciferol (Vitamin D2) 1,250 Mcg Capsule) mcg PO QWEEK [facility] Glucose (Glucose Gel 15 Gm Gel..Gram.) 15 gm PO Q15M PRN; Protocol PRN Reason: per Hypoglycemia Standing Ord. Sodium Chloride (Ns) 1,000 mls @ 50 mls/hr IVCONT .Q20H [facility] Last Admin: 02/09/21 00:34 Dose: 50 mls/hr Documented by: FACUNDO Insulin Glargine (Insulin Glargine,Hum.Rec.Anlog 100 Unit/Ml 10 Ml Vial) 60 unit SUBCUT DAILY [facility] Last Admin: 02/09/21 09:01 Dose: 60 unit Documented by: ELAINE Insulin Glargine (Insulin Glargine,Hum.Rec.Anlog 100 Unit/Ml 10 Ml Vial) 50 unit SUBCUT BEDTIME [facility] Insulin Human Lispro (Insulin Lispro 100 Unit/Ml 3 Ml Vial) 0 unit SUBCUT QIDACHS [facility]; Protocol Last Admin: 02/09/21 09:00 Dose: 20 unit Documented by: ELAINE Lorazepam (Lorazepam 1 Mg Tablet) 1 mg PO BID PRN PRN Reason: Insomnia Last Admin: 02/08/21 08:45 Dose: 1 mg Documented by: FELIX Melatonin (Melatonin 3 Mg Tablet) 6 mg PO BEDTIME PRN PRN Reason: Insomnia Last Admin: 02/08/21 20:31 Dose: 6 mg Documented by: LAILA Methylprednisolone Sodium Succinate (Methylprednisolone Sod Succ 40 Mg/Ml Vial) 40 mg IVPUSH Q8H [facility] Last Admin: 02/09/21 09:01 Dose: 40 mg Documented by: ELAINE Mirtazapine (Mirtazapine 15 Mg Tablet) 45 mg PO BEDTIME [facility] Last Admin: 02/08/21 20:28 Dose: 45 mg Documented by: LAILA Non-Formulary Medication (Nebivolol) 1 tab PO DAILY [facility] Senna (Sennosides 8.6 Mg Tablet) 17.2 mg PO BEDTIME PRN PRN Reason: Constipation Sodium Chloride (0.9 % Sodium Chloride Flush 3 Ml Syringe) 3 ml IVFLUSH QSHIFT [facility] Last Admin: 02/09/21 09:07 Dose: 3 ml Documented by: ELAINE Sodium Zirconium Cyclosilicate (Sodium Zirconium Cyclosilicate 10 Gm Powd.Pack) 10 gm PO TID [facility] Stop: 02/10/21 21:01 Last Admin: 02/09/21 09:39 Dose: 10 gm Documented by: ELAINE Zolpidem Tartrate (Zolpidem Tartrate 5 Mg Tablet) 5 mg PO BEDTIME PRN PRN Reason: insomnia Labs CBC & Chem 7: 02/09/21 05:54 02/09/21 05:54 Labs: Laboratory Results - last 24 hr 02/08/21 02/08/21 02/08/21 10:03 12:01 15:56 MCV MCH MCHC RDW Plt Count MPV Absolute Nucleated RBC Nucleated RBC % (auto) Anion Gap Estim Creat Clear Calc Estimated GFR POC Glucose 420 H* Random Glucose Calcium Magnesium Urine Color YELLOW Urine Appearance HAZY Urine pH 5.5 Ur Specific [place] 1.025 Urine Protein 2+ H Urine Glucose (UA) >=1000 H Urine Ketones NEG Urine Blood 2+ H Urine Nitrite NEG Ur Leukocyte Esterase NEG Urine RBC 0-2 Urine WBC 0 Ur Squamous Epith Cells TRACE Ur Renal Epithelial Cell 1+ Urine Bacteria TRACE Hyaline Casts 1-4 Urine Mucus 1+ Urine Yeast TRACE Respiratory Panel Perez See Note Adenovirus (Rapid PCR) Not Detected B.pert (TEM-PCR) Not Detected B.parapertussis DNA PCR Not Detected C. pneumoniae DNA (PCR) Not Detected Coronavirus OC43 (PCR) Not Detected Coronavirus HKU1 (PCR) Not Detected Coronavirus 229E (PCR) Not Detected Coronavirus NL63 (PCR) Not Detected Human Metapneumovir PCR Not Detected Influenza A (RT-PCR) Not Detected Influenza B (RT-PCR) Not Detected M. pneumoniae (PCR) Not Detected Parainfluenza 1 (PCR) Not Detected Parainfluenza 2 (PCR) Not Detected Parainfluenza 3 (PCR) Not Detected Parainfluenza 4 (PCR) Not Detected RSV (PCR) Not Detected Entero/Rhino (PCR) Detected A SARS-CoV-2 RNA (RT-PCR) Not Detected 02/08/21 02/08/21 02/09/21 17:16 19:39 05:54 MCV 86.2 MCH 27.0 MCHC 31.3 RDW 14.5 Plt Count 162 MPV 13.9 H Absolute Nucleated RBC 0.000 Nucleated RBC % (auto) 0.0 Anion Gap Estim Creat Clear Calc Estimated GFR POC Glucose 372 H* 358 H* Random Glucose Calcium Magnesium Urine Color Urine Appearance Urine pH Ur Specific [place]ot Urine Protein Urine Glucose (UA) Urine Ketones Urine Blood Urine Nitrite Ur Leukocyte Esterase Urine RBC Urine WBC Ur Squamous Epith Cells Ur Renal Epithelial Cell Urine Bacteria Hyaline Casts Urine Mucus Urine Yeast Respiratory Panel Perez Adenovirus (Rapid PCR) B.pert (TEM-PCR) B.parapertussis DNA PCR C. pneumoniae DNA (PCR) Coronavirus OC43 (PCR) Coronavirus HKU1 (PCR) Coronavirus 229E (PCR) Coronavirus NL63 (PCR) Human Metapneumovir PCR Influenza A (RT-PCR) Influenza B (RT-PCR) M. pneumoniae (PCR) Parainfluenza 1 (PCR) Parainfluenza 2 (PCR) Parainfluenza 3 (PCR) Parainfluenza 4 (PCR) RSV (PCR) Entero/Rhino (PCR) SARS-CoV-2 RNA (RT-PCR) 02/09/21 02/09/21 02/09/21 05:54 07:40 07:42 MCV MCH MCHC RDW Plt Count MPV Absolute Nucleated RBC Nucleated RBC % (auto) Anion Gap 13 Estim Creat Clear Calc 25.2 Estimated GFR 19 POC Glucose 386 H* 377 H* Random Glucose 406 H* Calcium 8.4 Magnesium 1.7 Urine Color Urine Appearance Urine pH Ur Specific Patriot Urine Protein Urine Glucose (UA) Urine Ketones Urine Blood Urine Nitrite Ur Leukocyte Esterase Urine RBC Urine WBC Ur Squamous Epith Cells Ur Renal Epithelial Cell Urine Bacteria Hyaline Casts Urine Mucus Urine Yeast Respiratory Panel Perez Adenovirus (Rapid PCR) B.pert (TEM-PCR) B.parapertussis DNA PCR C. pneumoniae DNA (PCR) Coronavirus OC43 (PCR) Coronavirus HKU1 (PCR) Coronavirus 229E (PCR) Coronavirus NL63 (PCR) Human Metapneumovir PCR Influenza A (RT-PCR) Influenza B (RT-PCR) M. pneumoniae (PCR) Parainfluenza 1 (PCR) Parainfluenza 2 (PCR) Parainfluenza 3 (PCR) Parainfluenza 4 (PCR) RSV (PCR) Entero/Rhino (PCR) SARS-CoV-2 RNA (RT-PCR) Assessment and Plan (1) Asthma exacerbation: Status: Acute Assessment and Plan: hospital d#3 65yo F with HTN, HLD, DM2, asthma, CKD4 admitted for asthma exacerbation due to viral infection # hyperK - no EKG changes - give albuterol x 10mg, Lokelma, Ca gluconate. consult Nephrology, recheck BMP at 14:00 and again tomorrow am - d/c'ed spironolactone and olmesartan # asthma exacerbation - wean IV steroids, standing/prn nebs # enterovirus/rhinovirus infection - no specific therapy # acute hypoxic resp failure - resolved # hypoMg - repleted # HTN - continue nebivolol- will substitute equivalent carvedilol # HLD - continue simvastatin # CKD4 - ?baseline Cr- obtain records from PCP - avoid nephrotoxins - Nephrology consult # mood disorder - continue mirtazapine # DM2 with steroid-induced hyperglycemia - basal/bolus insulin- increase doses - A1c pending # VTE ppx - LMWH renally dosed Quality Stroke Does the patient have a stroke diagnosis?: No VTE Prior VTE?: No VTE Risk Level:: Medical - moderate - high VTE Device Contraindication: Treatment Not Indicated VTE Drug Contraindication: N/A - Med Ordered
[2021-02-09] MEDS: Albuterol Sulfate (0.083%) 2.5 MG/3 ML VIAL.NEB 10 MG INHALE (11:12)
[2021-02-09 11:31] LABS: Glucose, Whole Blood 414 mg/dL (60-115)
--- NOTE | 2021-02-09 12:02 | MHC.CM.PN ---
CM MET WITH PT WHO REPORTS SHE LIVES ALONE. PT REPORTS SHE HAS A HOWEVER THEY LIVE SEPARATELY PT REPORTS SHE IS INDEPENDENT AND USES ONLY A CPAP FOR DME PT DENIES HAVING IN HOME SERVICES PT REPORTS HER PCP IS SHA [facility]ENO[facility] AT [facility] [facility] PT DECLINES TO COMPLETE A HCP TODAY IMM DELIVERED CURRENT DC PLAN IS HOME WITH NO SERVICES TO TRANSPORT
[2021-02-09 12:35] LABS: Glucose Random 406 mg/dL (60-115)
[2021-02-09 12:37] LABS: Potassium 6.6 mmol/L (3.3-5.1)
--- NOTE | 2021-02-09 14:33 | PM.CNNEP ---
History of Present Illness Reason for Consult Consult date: 02/09/21 Chief Complaint Chief complaint: Asthma exacerbation History of Present Illness Narrative: Cathy is a 65 yo woman followed by Dr. Muniz at [facility] for CKD in the setting of 30 years of type II DM and HTN. She presents with worsening SOB and URI exacerbating her asthma. Since admission she has had hyperkalemia with K today 6.6. Her glucoses are very elevated 400 or so likely exacerbated by her steroids for asthma. She has had problems in the past with hyperkalemia. Her creat is 2.5 today up from 2.2 yesterday. She is receiving normal saline. She was taking olmesartan and spironolactone prior to admission. Review of Systems Review of Systems congested shortness of breath is improved Comments: no chest pain Comments: acid reflux symptoms, epigastric burning PMFSH Past Medical History Medical History (Updated 02/09/21 @ 14:39 by Leidy Baxter MD) Asthma Diabetes HTN (hypertension) Social History Social History Household Members: None Housing: House Do you presently have visiting nurse or other home services: No Alcohol intake: unknown Patient Tobacco Use Status: Former Tobacco user service: No Current occupational status: unemployed Meds Allergies Allergy/AdvReac Type Severity Reaction Status Date / Time lisinopril [From ZESTRIL] Allergy Intermediate [place]OK[place] Verified 02/08/21 05:30 amlodipine Allergy Unknown Verified 02/08/21 05:30 Active Medications: Current Medications Acetaminophen (Acetaminophen 325 Mg Tablet) 650 mg PO Q6H PRN PRN Reason: Pain, Mild (Pain Scale 1-3) Last Admin: 02/09/21 09:01 Dose: 650 mg Documented by: Albuterol Sulfate (Albuterol Sulfate (0.083%) 2.5 Mg/3 Ml Vial.Neb) 2.5 mg INHALE Q2H PRN PRN Reason: Shortness of Breath/Wheezing Last Admin: 02/08/21 08:22 Dose: 2.5 mg Documented by: Albuterol/Ipratropium (Albuterol/Iprat 2.5/0.5mg 3 Ml Ampul.Neb) 3 ml INHALE RQ4H WHILE AWAKE [facility] Last Admin: 02/09/21 11:12 Dose: Not Given Documented by: Atorvastatin Calcium (Atorvastatin Calcium 10 Mg Tablet) 10 mg PO BEDTIME [facility] Last Admin: 02/08/21 20:28 Dose: 10 mg Documented by: Benzonatate (Benzonatate 100 Mg Capsule) 100 mg PO TID PRN PRN Reason: Cough Last Admin: 02/09/21 09:01 Dose: 100 mg Documented by: Dextrose (Dextrose 50 % 25 Gm/50 Ml Vial) 25 gm IVPUSH Q15M PRN; Protocol PRN Reason: per Hypoglycemia Standing Ord. Enoxaparin Sodium (Enoxaparin Sodium 30 Mg/0.3 Ml Syringe) 30 mg SUBCUT DAILY [facility] Last Admin: 02/09/21 09:01 Dose: 30 mg Documented by: Ergocalciferol (Ergocalciferol (Vitamin D2) 1,250 Mcg Capsule) 1,250 mcg PO Fr [facility] Glucose (Glucose Gel 15 Gm Gel..Gram.) 15 gm PO Q15M PRN; Protocol PRN Reason: per Hypoglycemia Standing Ord. Insulin Glargine (Insulin Glargine,Hum.Rec.Anlog 100 Unit/Ml 10 Ml Vial) 60 unit SUBCUT DAILY [facility] Last Admin: 02/09/21 09:01 Dose: 60 unit Documented by: Insulin Glargine (Insulin Glargine,Hum.Rec.Anlog 100 Unit/Ml 10 Ml Vial) 50 unit SUBCUT BEDTIME [facility] Insulin Human Lispro (Insulin Lispro 100 Unit/Ml 3 Ml Vial) 0 unit SUBCUT QIDACHS [facility]; Protocol Last Admin: 02/09/21 12:29 Dose: 20 unit Documented by: Lorazepam (Lorazepam 1 Mg Tablet) 1 mg PO BID PRN PRN Reason: Insomnia Last Admin: 02/08/21 08:45 Dose: 1 mg Documented by: Melatonin (Melatonin 3 Mg Tablet) 6 mg PO BEDTIME PRN PRN Reason: Insomnia Last Admin: 02/08/21 20:31 Dose: 6 mg Documented by: Methylprednisolone Sodium Succinate (Methylprednisolone Sod Succ 40 Mg/Ml Vial) 40 mg IVPUSH Q12H [facility] Mirtazapine (Mirtazapine 15 Mg Tablet) 45 mg PO BEDTIME [facility] Last Admin: 02/08/21 20:28 Dose: 45 mg Documented by: Non-Formulary Medication (Nebivolol) 1 tab PO DAILY [facility] Senna (Sennosides 8.6 Mg Tablet) 17.2 mg PO BEDTIME PRN PRN Reason: Constipation Sodium Chloride (0.9 % Sodium Chloride Flush 3 Ml Syringe) 3 ml IVFLUSH QSHIFT [facility] Last Admin: 02/09/21 09:07 Dose: 3 ml Documented by: Sodium Zirconium Cyclosilicate (Sodium Zirconium Cyclosilicate 10 Gm Powd.Pack) 10 gm PO TID [facility] Stop: 02/10/21 21:01 Last Admin: 02/09/21 09:39 Dose: 10 gm Documented by: Zolpidem Tartrate (Zolpidem Tartrate 5 Mg Tablet) 5 mg PO BEDTIME PRN PRN Reason: insomnia Home Medications Medication Instructions Recorded Confirmed Last Taken Type blood sugar diagnostic (OneTouch 02/08/21 02/08/21 Unknown History Ultra Test) ergocalciferol (vitamin D2) 1,250 1 cap PO QWEEK 02/08/21 02/08/21 Unknown History mcg (50,000 unit) capsule fluticasone propionate 220 2 puff INHALATION BID 02/08/21 02/08/21 Unknown History mcg/actuation HFA aerosol inhaler (Flovent HFA) insulin glargine 100 unit/mL 45 unit SUBCUT BEDTIME 02/08/21 02/08/21 Unknown History subcutaneous solution (Lantus U-100 Insulin) insulin glargine 100 unit/mL 55 unit SUBCUT QAM 02/08/21 02/08/21 Unknown History subcutaneous solution (Lantus U-100 Insulin) insulin syringe-needle U-100 1 mL 02/08/21 02/08/21 Unknown History 31 gauge x 08/11 lorazepam 1 mg tablet 1 tab PO BID PRN 02/08/21 02/08/21 Unknown History mirtazapine 45 mg tablet 1 tab PO BEDTIME 02/08/21 02/08/21 Unknown History nebivolol 20 mg tablet 1 tab PO DAILY 02/08/21 02/08/21 Unknown History olmesartan 40 mg tablet 1 tab PO DAILY 02/08/21 02/08/21 Unknown History simvastatin 10 mg tablet 1 tab PO BEDTIME 02/08/21 02/08/21 Unknown History spironolactone 25 1 tab PO DAILY 02/08/21 02/08/21 Unknown History mg-hydrochlorothiazide 25 mg tablet zolpidem 10 mg tablet 1 tab PO BEDTIME PRN 02/08/21 02/08/21 Unknown History Physical Exam Vital Signs: Last Vital Signs Temp 99.5 F 02/09/21 12:00 Pulse 83 02/09/21 12:00 Resp 21 H 02/09/21 12:00 BP 133/43 L 02/09/21 12:00 Pulse Ox 99 02/09/21 12:00 Body Mass Index 36.2 Results Lab Results Result Diagrams: 02/09/21 05:54 02/09/21 05:54 Lab results: Chemistry 02/08/21 02/08/21 02/09/21 02:13 04:37 05:54 Sodium 136 136 134 L Potassium 5.6 H 4.8 6.6 H* D Carbon Dioxide 21 L 21 L 22 BUN 30 H 32 H 50 H D Creatinine 2.16 H 2.19 H 2.50 H Calcium 8.2 L 8.1 L 8.4 Hematology 02/08/21 02/08/21 02/09/21 02:13 04:37 05:54 WBC 6.4 7.0 14.5 H Hgb 10.2 L 9.9 L 9.4 L Plt Count 145 L 134 L 162 Urinalysis 02/08/21 15:56 Urine Color YELLOW Urine Appearance HAZY Urine pH 5.5 Ur Specific [place] 1.025 Urine Protein 2+ H Urine Glucose (UA) >=1000 H Urine Ketones NEG Urine Blood 2+ H Urine Nitrite NEG Ur Leukocyte Esterase NEG Urine RBC 0-2 Urine WBC 0 Ur Squamous Epith Cells TRACE Hyaline Casts 1-4 Assessment and Plan (1) Chronic kidney disease (CKD) stage G3b/A1, moderately decreased glomerular filtration rate (GFR) between 30-44 mL/min/1.73 square meter and albuminuria creatinine ratio less than 30 mg/g: Status: Acute (2) Hyperkalemia: Status: Acute (3) Acute kidney injury: Status: Acute (4) Diabetes: Status: Acute (5) HTN (hypertension): Status: Acute This patient has stage 3b CKD most likely due to DKD and was being treated with combination of ARB and mineralocoricoid receptor antagonist which contributed to he issue with hyperkalemia. In addition, since admission she has relative insulin deficiency and hyperglycemia causing transcell shift of K as well. She is currently receiving lokelma and is now off of her olmesartan and spironolactone. She has mild TARAN in this setting Recommend: Aggressive control of glucose, may need an insulin drip Repeat K stat now Hold olmesartan and spironolactone as you are Normal saline at 125/hr to facilitate K secretion Lokelma 10 gm tid Procedures Date of Service Date of Service: 02/09/21
[2021-02-09 15:16] LABS: Potassium 5.4 mmol/L (3.3-5.1)
[2021-02-09 16:09] LABS: Glucose, Whole Blood 319 mg/dL (60-115)
[2021-02-09] MEDS: 0.9 % Sodium Chloride 1,000 ML 125 ML IVCONT (17:22)
[2021-02-09 20:30] LABS: Glucose, Whole Blood 227 mg/dL (60-115)
[2021-02-09] MEDS: Mirtazapine 15 MG TABLET 45 MG PO (21:24)
[2021-02-09] MEDS: Atorvastatin Calcium 10 MG TABLET PO (21:24)
[2021-02-09] MEDS: Zolpidem Tartrate 5 MG TABLET PO (21:35)
[2021-02-10] VITALS (10 sets, daily range): BP systolic 143–170; BP diastolic 6–73; PULSE 60–105; RESP 18–20; TEMP 36.4–37; O2SAT 90–98
[2021-02-10] MEDS: Benzonatate 100 MG CAPSULE PO (00:07)
[2021-02-10] MEDS: 0.9 % Sodium Chloride 1,000 ML 125 ML IVCONT ×3 (02:41→20:42)
[2021-02-10] MEDS: guaiFEN/Codeine SF 200/20/10ML 10 ML LIQUID 5 ML PO (03:08)
[2021-02-10 07:16] LABS: Glucose, Whole Blood 306 mg/dL (60-115)
[2021-02-10 07:30] LABS: Estimated Average Glucose 206 mg/dL; Hemoglobin A1c % 8.8 %
[2021-02-10 07:43] LABS: Anion Gap 13 (12-20); Blood Urea Nitrogen 62 mg/dL (9-16); Calcium 9.1 mg/dL (8.4-10.2); Carbon Dioxide 22 mmol/L (22-29); Chloride 106 mmol/L (96-108); Creatinine Clr Calc Pharmacy 28.3; Estimated Glomerular Filt Rate 22; Glucose Random 338 mg/dL (60-115); Potassium 6.6 mmol/L (3.3-5.1); Sodium 134 mmol/L (135-145)
[2021-02-10] MEDS: Albuterol/Iprat 2.5/0.5MG 3 ML AMPUL.NEB INHALE ×3 (08:07→19:35)
[2021-02-10] MEDS: Enoxaparin Sodium 30 MG/0.3 ML SYRINGE SUBCUT (08:44)
[2021-02-10] MEDS: Insulin Glargine,Hum.rec.anlog 100 UNIT/ML 10 ML VIAL 65 UNIT SUBCUT (08:45)
[2021-02-10] MEDS: Insulin Lispro 100 UNIT/ML 3 ML VIAL SUBCUT ×4 (08:45→21:47)
[2021-02-10] MEDS: Insulin Regular, Human 100 UNIT/ML 3 ML VIAL 10 UNIT IVPUSH (08:45)
[2021-02-10] MEDS: methylPREDNISolone Sod Succ 40 MG/ML VIAL IVPUSH ×2 (08:46→20:35)
[2021-02-10] MEDS: 0.9 % Sodium Chloride Flush 3 ML SYRINGE IVFLUSH (08:46)
[2021-02-10] MEDS: Sodium Zirconium Cyclosilicate 10 GM POWD.PACK PO ×3 (08:47→20:35)
[2021-02-10] MEDS: Calcium Gluconate/NaCl,Iso-Osm 1 GM/50 ML PLAST..BAG IV (08:47)
--- NOTE | 2021-02-10 09:41 | P.CDIC_ITS ---
CDI Concurrent Query Documentation Clarification: PHYSICIAN'S DOCUMENTATION REQUEST Date of Query: 02/10/21 0941 Patient Name: Cathy Collins Admit Date: 02/08/21 Dear Doctor, Please review the following and provide your response in the progress notes. Clinical Indicators: The diagnosis of asthma was documented in the record on 02/08/21. Additional clinical indicators from the record include: Risk Factors/Clinical Indicators/Treatments Shortness of Breath Moderate respiratory distress with Acute hypoxic respiratory failure Based on the above, please clarify in the Progress Notes further specificity regarding the type and acuity of the asthma: Type: * Mild intermittent - less than 2x/week * Mild persistent - more than 2x/week but not daily * Moderate persistent - daily and may restrict physical activity * Severe persistent - throughout the day with frequent attacks, limiting activities * Exercise induced * Chronic obstructive asthma and indicate if with acute lower respiratory infection * Asthma with underlying COPD and indicate if with acute lower respiratory infection * Other ? please specify * Unable to determine Use of terms such as suspected, likely, concern for, or probable (associated with a specific diagnosis that is being evaluated, monitored, or treated as if it exists) are acceptable and can be coded in the inpatient setting, when documented at the time of discharge. Thank you, Shruthi Rosario RN Extension: [phone] Please use your independent medical judgment in providing your response. THIS QUERY IS PART OF THE PERMANENT MEDICAL RECORD Provider Response: Other Other Diagnosis: mild persistent asthma acute exacerbation
[2021-02-10] MEDS: Albuterol Sulfate (0.083%) 2.5 MG/3 ML VIAL.NEB 10 MG INHALE (09:44)
--- NOTE | 2021-02-10 10:26 | P.PNIM_ITS ---
Subjective Subjective Date of Service: 02/10/21 Interval History: K high again Still dyspneic + wheezing Review of Systems Review of Systems: Yes all other systems are reviewed and are negative Physical Exam Vital Signs: Vital Signs: Last Vital Signs Temp 98.1 F 02/10/21 07:16 Pulse 67 02/10/21 09:47 Resp 20 02/10/21 07:16 BP 154/62 H 02/10/21 07:16 Pulse Ox 92 02/10/21 07:16 Body Mass Index 36.2 Gen: NAD HEENT: sclera anicteric, moist mucus membranes Neck: supple Lungs: diminished air entry, diffuse expiratory wheezing Heart: regular rate and rhythm, no murmurs Abd: obese, soft, non-tender, non-distended Ext: no edema Skin: warm/well-perfused Neuro: alert and oriented x3, no focal findings Psych: appropriate affect Objective Data Active Medications Acetaminophen (Acetaminophen 325 Mg Tablet) 650 mg PO Q6H PRN PRN Reason: Pain, Mild (Pain Scale 1-3) Last Admin: 02/09/21 09:01 Dose: 650 mg Documented by: ELAINE Albuterol Sulfate (Albuterol Sulfate (0.083%) 2.5 Mg/3 Ml Vial.Neb) 2.5 mg INHALE Q2H PRN PRN Reason: Shortness of Breath/Wheezing Last Admin: 02/08/21 08:22 Dose: 2.5 mg Documented by: CELESTINA Albuterol/Ipratropium (Albuterol/Iprat 2.5/0.5mg 3 Ml Ampul.Neb) 3 ml INHALE RQ4H WHILE AWAKE [facility] Last Admin: 02/10/21 08:07 Dose: 3 ml Documented by: VANNESSA Atorvastatin Calcium (Atorvastatin Calcium 10 Mg Tablet) 10 mg PO BEDTIME [facility] Last Admin: 02/09/21 21:24 Dose: 10 mg Documented by: VINCENT Benzonatate (Benzonatate 100 Mg Capsule) 100 mg PO TID PRN PRN Reason: Cough Last Admin: 02/10/21 00:07 Dose: 100 mg Documented by: VINCENT Dextrose (Dextrose 50 % 25 Gm/50 Ml Vial) 25 gm IVPUSH Q15M PRN; Protocol PRN Reason: per Hypoglycemia Standing Ord. Ergocalciferol (Ergocalciferol (Vitamin D2) 1,250 Mcg Capsule) 1,250 mcg PO Fr [facility] Glucose (Glucose Gel 15 Gm Gel..Gram.) 15 gm PO Q15M PRN; Protocol PRN Reason: per Hypoglycemia Standing Ord. Sodium Chloride (Ns) 1,000 mls @ 125 mls/hr IVCONT .Q8H [facility] Last Admin: 02/10/21 02:41 Dose: 125 mls/hr Documented by: VINCENT Insulin Glargine (Insulin Glargine,Hum.Rec.Anlog 100 Unit/Ml 10 Ml Vial) 65 unit SUBCUT DAILY [facility] Last Admin: 02/10/21 08:45 Dose: 65 unit Documented by: LUZ Insulin Glargine (Insulin Glargine,Hum.Rec.Anlog 100 Unit/Ml 10 Ml Vial) 55 unit SUBCUT BEDTIME [facility] Insulin Human Lispro (Insulin Lispro 100 Unit/Ml 3 Ml Vial) 0 unit SUBCUT QIDACHS [facility]; Protocol Last Admin: 02/10/21 08:45 Dose: 16 unit Documented by: LUZ Lorazepam (Lorazepam 1 Mg Tablet) 1 mg PO BID PRN PRN Reason: Insomnia Last Admin: 02/08/21 08:45 Dose: 1 mg Documented by: FELIX Melatonin (Melatonin 3 Mg Tablet) 6 mg PO BEDTIME PRN PRN Reason: Insomnia Last Admin: 02/08/21 20:31 Dose: 6 mg Documented by: LAILA Methylprednisolone Sodium Succinate (Methylprednisolone Sod Succ 40 Mg/Ml Vial) 40 mg IVPUSH Q12H [facility] Last Admin: 02/10/21 08:46 Dose: 40 mg Documented by: LUZ Mirtazapine (Mirtazapine 15 Mg Tablet) 45 mg PO BEDTIME [facility] Last Admin: 02/09/21 21:24 Dose: 45 mg Documented by: VINCENT Non-Formulary Medication (Nebivolol) 1 tab PO DAILY [facility] Senna (Sennosides 8.6 Mg Tablet) 17.2 mg PO BEDTIME PRN PRN Reason: Constipation Sodium Chloride (0.9 % Sodium Chloride Flush 3 Ml Syringe) 3 ml IVFLUSH QSHIFT [facility] Last Admin: 02/10/21 08:46 Dose: 3 ml Documented by: LUZ Sodium Zirconium Cyclosilicate (Sodium Zirconium Cyclosilicate 10 Gm Powd.Pack) 10 gm PO TID [facility] Stop: 02/10/21 21:01 Last Admin: 02/10/21 08:47 Dose: 10 gm Documented by: LUZ Zolpidem Tartrate (Zolpidem Tartrate 5 Mg Tablet) 5 mg PO BEDTIME PRN PRN Reason: insomnia Last Admin: 02/09/21 21:35 Dose: 5 mg Documented by: VINCENT Labs CBC & Chem 7: 02/09/21 05:54 02/10/21 06:26 Labs: Laboratory Results - last 24 hr 02/09/21 02/09/21 02/09/21 05:54 05:54 11:25 Anion Gap Estim Creat Clear Calc Estimated GFR POC Glucose 414 H* Random Glucose 406 H* Estimat Average Glucose 206 Hemoglobin A1c % 8.8 Calcium 02/09/21 02/09/21 02/10/21 16:02 20:20 06:26 Anion Gap 13 Estim Creat Clear Calc 28.3 Estimated GFR 22 POC Glucose 319 H 227 H Random Glucose 338 H Estimat Average Glucose Hemoglobin A1c % Calcium 9.1 D 02/10/21 07:12 Anion Gap Estim Creat Clear Calc Estimated GFR POC Glucose 306 H Random Glucose Estimat Average Glucose Hemoglobin A1c % Calcium Assessment and Plan (1) Asthma exacerbation: Status: Acute Assessment and Plan: hospital d#4 65yo F with HTN, HLD, DM2, asthma, CKD4 admitted for asthma exacerbation due to viral infection # hyperK - recurrent despite already stopping spironolactone and olmesartan - likely due to enoxaparin- d/c'ed. check TTKG - give another round of albuterol x 10mg + Ca gluconate, also IV insulin. continue Lokelma. Nephrology following. recheck BMP at 14:00 and again tomorrow am # mild persistent asthma with acute exacerbation - wean IV steroids, standing/prn nebs # enterovirus/rhinovirus infection - no specific therapy # acute hypoxic resp failure - resolved # hypoMg - repleted # HTN - continue nebivolol # HLD - continue simvastatin # CKD4 - ?baseline Cr- requested records from PCP - avoid nephrotoxins - Nephrology following # mood disorder - continue mirtazapine # DM2 with steroid-induced hyperglycemia - basal/bolus insulin- increase doses - A1c 8.8 # VTE ppx - SCDs - stopped LMWH to to concern of hyperK Quality Stroke Does the patient have a stroke diagnosis?: No VTE Prior VTE?: No VTE Risk Level:: Medical - moderate - high VTE Device Contraindication: Treatment Not Indicated VTE Drug Contraindication: N/A - Med Ordered
[2021-02-10 11:00] LABS: Glucose, Whole Blood 332 mg/dL (60-115)
--- NOTE | 2021-02-10 11:11 | MHC.CM.PN ---
Per ROUNDS discussion, Patient is not yet medically cleared for dc (elevated K).HOME IS THE goal PENDING PT EVAL and CM will continue to follow.
--- NOTE | 2021-02-10 11:30 | PM.PNNEP ---
Subjective Subjective Date of Service: 02/10/21 Interval history: Events noted. All recent data reviewed Physical Exam Vital Signs: Vital Signs: Last Vital Signs Temp 98.1 F 02/10/21 07:16 Pulse 67 02/10/21 09:47 Resp 20 02/10/21 07:16 BP 154/62 H 02/10/21 07:16 Pulse Ox 92 02/10/21 07:16 Body Mass Index 36.2 Const: General: no acute distress Eyes: EOM: EOMs intact bilaterally Neck: Neck: Yes supple Resp: Auscultation: diminished lung sounds Cardio: Rate: regular rate GI: Palpation (GI): Soft to palpation Neuro: General: moves all extremities Objective Data Labs CBC & Chem 7: 02/09/21 05:54 02/10/21 06:26 Labs: Laboratory Results - last 24 hr 02/09/21 02/09/21 02/09/21 05:54 05:54 11:25 Sodium Potassium 6.6 H* D Chloride Carbon Dioxide Anion Gap BUN Creatinine Estim Creat Clear Calc Estimated GFR POC Glucose 414 H* Random Glucose 406 H* Estimat Average Glucose 206 Hemoglobin A1c % 8.8 Calcium 02/09/21 02/09/21 02/09/21 14:58 16:02 20:20 Sodium Potassium 5.4 H Chloride Carbon Dioxide Anion Gap BUN Creatinine Estim Creat Clear Calc Estimated GFR POC Glucose 319 H 227 H Random Glucose Estimat Average Glucose Hemoglobin A1c % Calcium 02/10/21 02/10/21 02/10/21 06:26 07:12 10:55 Sodium 134 L Potassium 6.6 H* D Chloride 106 Carbon Dioxide 22 Anion Gap 13 BUN 62 H Creatinine 2.22 H Estim Creat Clear Calc 28.3 Estimated GFR 22 POC Glucose 306 H 332 H Random Glucose 338 H Estimat Average Glucose Hemoglobin A1c % Calcium 9.1 D Procedures Date of Service Date of Service: 02/10/21 Assessment & Plan Assessment and plan (1) Acute kidney injury: Status: Acute Assessment and Plan: Has stage 3b CKD most likely due to DKD and was being treated with combination of ARB and mineralocoricoid receptor antagonist which contributed to he issue with hyperkalemia. She has relative insulin deficiency and hyperglycemia causing transcellular shift of K as well. She is currently off olmesartan and spironolactone. She had mild TARAN Good blood sugar control Continue to hold olmesartan & spironolactone TTKG; Hold heparin;Lokelma 10 gm tid Medical treatment for hyperkalemia Repeat lytes this afternoon; No indication for HD Time Spent With Patient Time: Total time spent is greater than 50% in coordination of care (as documented) at patient's floor/unit and/or counseling patient: Progress Note: Quality Stroke Does the patient have a stroke diagnosis?: No
[2021-02-10 14:30] LABS: Potassium 5.1 mmol/L (3.3-5.1)
[2021-02-10 14:39] LABS: Osmolality, Serum 325 mosm/kg (281-305)
[2021-02-10 16:10] LABS: Glucose, Whole Blood 276 mg/dL (60-115)
[2021-02-10 19:59] LABS: Glucose, Whole Blood 278 mg/dL (60-115)
[2021-02-10] MEDS: Mirtazapine 15 MG TABLET 45 MG PO (20:35)
[2021-02-10] MEDS: Atorvastatin Calcium 10 MG TABLET PO (20:35)
[2021-02-10] MEDS: Insulin Glargine,Hum.rec.anlog 100 UNIT/ML 10 ML VIAL 55 UNIT SUBCUT (21:48)
[2021-02-10] MEDS: Zolpidem Tartrate 5 MG TABLET PO (21:55)
[2021-02-11] VITALS (9 sets, daily range): BP systolic 158–176; BP diastolic 68–79; PULSE 70–91; RESP 16–22; TEMP 36.6–37.1; O2SAT 92–98
--- NOTE | 2021-02-11 06:43 | PC.NURSE ---
Pt POC 278, pt to receive 16 units Humalog and 55 units Lantus, per EMAR. Pt refused to take the ordered dose of insulin, states the max dose she will take of Humalog is 10 units and 26 units of Lantus. MD made aware, ok per MD to give pt the lowered dose that pt was agreeable to take.
[2021-02-11 06:55] LABS: Anion Gap 12 (12-20); Blood Urea Nitrogen 59 mg/dL (9-16); Calcium 9.5 mg/dL (8.4-10.2); Carbon Dioxide 21 mmol/L (22-29); Chloride 106 mmol/L (96-108); Creatinine Clr Calc Pharmacy 32.7; Estimated Glomerular Filt Rate 26; Glucose Random 253 mg/dL (60-115); Potassium 5.4 mmol/L (3.3-5.1); Sodium 134 mmol/L (135-145)
[2021-02-11 07:13] LABS: Glucose, Whole Blood 229 mg/dL (60-115)
[2021-02-11] MEDS: Albuterol/Iprat 2.5/0.5MG 3 ML AMPUL.NEB INHALE ×4 (07:30→20:17)
[2021-02-11] MEDS: Insulin Lispro 100 UNIT/ML 3 ML VIAL SUBCUT ×3 (07:38→17:13)
[2021-02-11] MEDS: predniSONE 20 MG TABLET 40 MG PO (09:23)
[2021-02-11] MEDS: 0.9 % Sodium Chloride Flush 3 ML SYRINGE IVFLUSH (09:24)
[2021-02-11] MEDS: Sodium Polystyrene Sulfon/Sorb 15 GM/60 ML ORAL.SUSP PO (09:24)
[2021-02-11] MEDS: Insulin Glargine,Hum.rec.anlog 100 UNIT/ML 10 ML VIAL 65 UNIT SUBCUT (09:25)
[2021-02-11 11:17] LABS: Glucose, Whole Blood 231 mg/dL (60-115)
--- NOTE | 2021-02-11 11:28 | PM.PNNEP ---
Subjective Subjective Date of Service: 02/11/21 Interval history: Events noted. All recent data reviewed Physical Exam Vital Signs: Vital Signs: Last Vital Signs Temp 97.8 F 02/11/21 11:08 Pulse 78 02/11/21 11:08 Resp 19 02/11/21 11:08 BP 164/68 H 02/11/21 08:09 Pulse Ox 93 02/11/21 11:08 Body Mass Index 36.2 Const: General: no acute distress Eyes: EOM: EOMs intact bilaterally Neck: Neck: Yes supple Resp: Auscultation: diminished lung sounds Cardio: Jugular venous distension: no JVD GI: Palpation (GI): Soft to palpation Neuro: General: moves all extremities Objective Data Labs CBC & Chem 7: 02/09/21 05:54 02/11/21 06:16 Labs: Laboratory Results - last 24 hr 02/10/21 02/10/21 02/10/21 14:12 14:12 16:05 Sodium Potassium 5.1 D Chloride Carbon Dioxide Anion Gap BUN Creatinine Estim Creat Clear Calc Estimated GFR POC Glucose 276 H Random Glucose Osmolality 325 H Calcium 02/10/21 02/11/21 02/11/21 19:52 06:16 07:09 Sodium 134 L Potassium 5.4 H Chloride 106 Carbon Dioxide 21 L Anion Gap 12 BUN 59 H Creatinine 1.92 H Estim Creat Clear Calc 32.7 Estimated GFR 26 POC Glucose 278 H 229 H Random Glucose 253 H Osmolality Calcium 9.5 02/11/21 11:12 Sodium Potassium Chloride Carbon Dioxide Anion Gap BUN Creatinine Estim Creat Clear Calc Estimated GFR POC Glucose 231 H Random Glucose Osmolality Calcium Procedures Date of Service Date of Service: 02/11/21 Assessment & Plan Assessment and plan (1) Acute kidney injury: Status: Acute Assessment and Plan: Has stage 3b CKD most likely due to DKD and was being treated with combination of ARB and mineralocoricoid receptor antagonist which contributed to he issue with hyperkalemia. She has relative insulin deficiency and hyperglycemia causing transcellular shift of K as well. She is currently? off? olmesartan and spironolactone. She had mild TARAN Good blood sugar control Continue to hold olmesartan & spironolactone TTKG; Hold heparin;Lokelma 10 gm tid Medical treatment for hyperkalemia No indication for HD; 2 Gram K diet Labs AM. Shall closely follow up Time Spent With Patient Time: Total time spent is greater than 50% in coordination of care (as documented) at patient's floor/unit and/or counseling patient: Progress Note: Quality Stroke Does the patient have a stroke diagnosis?: No
[2021-02-11 13:14] LABS: Potassium 5.4 mmol/L (3.3-5.1)
--- NOTE | 2021-02-11 13:32 | MHC.CM.PN ---
Patient has been medically cleared for dc to home today, no services. Last IMM addressed on 02/09/21.
[2021-02-11] MEDS: amLODIPine Besylate 2.5 MG TABLET PO (14:57)
--- NOTE | 2021-02-11 16:31 | P.PNIM_ITS ---
Subjective Subjective Date of Service: 02/11/21 Interval History: Asthma exacerbation, hyperkalemia Review of Systems Patient still desats in 80s with walking, also has mild hyperkalemia Has cough Denies any chest pain-or abdominal pain or fever chills or phlegm. Physical Exam Vital Signs: Vital Signs: Last Vital Signs Temp 98.7 F 02/11/21 16:13 Pulse 70 02/11/21 16:13 Resp 20 02/11/21 16:13 BP 158/78 H 02/11/21 16:13 Pulse Ox 98 02/11/21 16:13 Body Mass Index 36.2 Gen: NAD HEENT: sclera anicteric, moist mucus membranes Neck: supple Lungs: Air entry improving, slightly diminished at bases still has wheezing. Heart: regular rate and rhythm, no murmurs Abd: obese, soft, non-tender, non-distended Ext: no edema Skin: warm/well-perfused Neuro: alert and oriented x3, no focal findings Psych: appropriate affect Objective Data Active Medications Acetaminophen (Acetaminophen 325 Mg Tablet) 650 mg PO Q6H PRN PRN Reason: Pain, Mild (Pain Scale 1-3) Last Admin: 02/09/21 09:01 Dose: 650 mg Documented by: ELAINE Albuterol Sulfate (Albuterol Sulfate (0.083%) 2.5 Mg/3 Ml Vial.Neb) 2.5 mg INHALE Q2H PRN PRN Reason: Shortness of Breath/Wheezing Last Admin: 02/08/21 08:22 Dose: 2.5 mg Documented by: CELESTINA Albuterol/Ipratropium (Albuterol/Iprat 2.5/0.5mg 3 Ml Ampul.Neb) 3 ml INHALE RQ4H WHILE AWAKE ON LICENSE OF [facility] Last Admin: 02/11/21 14:40 Dose: 3 ml Documented by: ROBERTO Atorvastatin Calcium (Atorvastatin Calcium 10 Mg Tablet) 10 mg PO BEDTIME ON LICENSE OF [facility] Last Admin: 02/10/21 20:35 Dose: 10 mg Documented by: DESROA Benzonatate (Benzonatate 100 Mg Capsule) 100 mg PO TID PRN PRN Reason: Cough Last Admin: 02/10/21 00:07 Dose: 100 mg Documented by: VINCENT Dextrose (Dextrose 50 % 25 Gm/50 Ml Vial) 25 gm IVPUSH Q15M PRN; Protocol PRN Reason: per Hypoglycemia Standing Ord. Ergocalciferol (Ergocalciferol (Vitamin D2) 1,250 Mcg Capsule) 1,250 mcg PO Fr ON LICENSE OF [facility] Glucose (Glucose Gel 15 Gm Gel..Gram.) 15 gm PO Q15M PRN; Protocol PRN Reason: per Hypoglycemia Standing Ord. Sodium Chloride (Ns) 1,000 mls @ 125 mls/hr IVCONT .Q8H ON LICENSE OF [facility] Last Infusion: 02/11/21 10:55 Dose: 0 mls/hr Documented by: LUZ Insulin Glargine (Insulin Glargine,Hum.Rec.Anlog 100 Unit/Ml 10 Ml Vial) 65 unit SUBCUT DAILY ON LICENSE OF [facility] Last Admin: 02/11/21 09:25 Dose: 65 unit Documented by: SHASTA Insulin Glargine (Insulin Glargine,Hum.Rec.Anlog 100 Unit/Ml 10 Ml Vial) 55 unit SUBCUT BEDTIME ON LICENSE OF [facility] Last Admin: 02/10/21 21:48 Dose: 26 unit Documented by: DARREN Comments: ok to give 26 per Insulin Human Lispro (Insulin Lispro 100 Unit/Ml 3 Ml Vial) 0 unit SUBCUT QIDACHS ON LICENSE OF [facility]; Protocol Last Admin: 02/11/21 11:35 Dose: 12 unit Documented by: SHASTA Lorazepam (Lorazepam 1 Mg Tablet) 1 mg PO BID PRN PRN Reason: Insomnia Last Admin: 02/08/21 08:45 Dose: 1 mg Documented by: FELIX Melatonin (Melatonin 3 Mg Tablet) 6 mg PO BEDTIME PRN PRN Reason: Insomnia Last Admin: 02/08/21 20:31 Dose: 6 mg Documented by: LAILA Mirtazapine (Mirtazapine 15 Mg Tablet) 45 mg PO BEDTIME YOKASTA Last Admin: 02/10/21 20:35 Dose: 30 mg Documented by: DARREN Non-Formulary Medication (Nebivolol) 1 tab PO DAILY ON LICENSE OF [facility] Prednisone (Prednisone 20 Mg Tablet) 40 mg PO DAILY ON LICENSE OF [facility] Last Admin: 02/11/21 09:23 Dose: 40 mg Documented by: SHASTA Senna (Sennosides 8.6 Mg Tablet) 17.2 mg PO BEDTIME PRN PRN Reason: Constipation Sodium Chloride (0.9 % Sodium Chloride Flush 3 Ml Syringe) 3 ml IVFLUSH QSHIFT YOKASTA Last Admin: 02/11/21 15:01 Dose: Not Given Documented by: LUZ Non-Admin Reason: No Access Zolpidem Tartrate (Zolpidem Tartrate 5 Mg Tablet) 5 mg PO BEDTIME PRN PRN Reason: insomnia Last Admin: 02/10/21 21:55 Dose: 5 mg Documented by: DARREN Labs CBC & Chem 7: 02/09/21 05:54 02/11/21 11:29 Labs: Laboratory Results - last 24 hr 02/10/21 02/11/21 02/11/21 19:52 06:16 07:09 Anion Gap 12 Estim Creat Clear Calc 32.7 Estimated GFR 26 POC Glucose 278 H 229 H Random Glucose 253 H Calcium 9.5 02/11/21 11:12 Anion Gap Estim Creat Clear Calc Estimated GFR POC Glucose 231 H Random Glucose Calcium Assessment and Plan (1) HTN (hypertension): Status: Acute (2) Acute kidney injury: Status: Acute (3) Hyperkalemia: Status: Acute (4) Chronic kidney disease (CKD) stage G3b/A1, moderately decreased glomerular filtration rate (GFR) between 30-44 mL/min/1.73 square meter and albuminuria creatinine ratio less than 30 mg/g: Status: Acute Assessment and Plan: 65yo F with HTN, HLD, DM2, asthma, CKD4 admitted for asthma exacerbation due to viral infection 1. hyperK - recurrent despite already stopping spironolactone and olmesartan - likely due to enoxaparin- d/c'ed.? Hold on losartan and spironolactone. Continue low lokema , monitor BMP. ? 2. mild persistent asthma with acute exacerbation Seems improving, continue nebs 3. enterovirus/rhinovirus infection - no specific therapy 4.acute hypoxic resp failure - resolved 5. hypoMg - repleted 6. HTN uncontrolled : - continue nebivolol, added amlodipine 7. HLD - continue simvastatin 8. CKD4 - ?baseline Cr- requested records from PCP - avoid nephrotoxins - Nephrology following 9. mood disorder - continue mirtazapine 10. DM2 with steroid-induced hyperglycemia - basal/bolus insulin- increase doses - A1c 8.8 11. VTE ppx - SCDs - stopped LMWH to to concern of hyperK Quality Stroke Does the patient have a stroke diagnosis?: No VTE Prior VTE?: No VTE Risk Level:: Medical - moderate - high VTE Device Contraindication: Treatment Not Indicated VTE Drug Contraindication: N/A - Med Ordered
[2021-02-11 16:43] LABS: Glucose, Whole Blood 219 mg/dL (60-115)
[2021-02-11 19:59] LABS: Glucose, Whole Blood 213 mg/dL (60-115)
--- NOTE | 2021-02-11 21:24 | PM.EVENT ---
Event Note Date of Service: 02/11/21 Event Note: pt refusing to take the higher dose of lantus and reports that she only takes 26 units of lantus at bedtime. refused to take 55. we explained the need was due to steroids but pt still refusing. she also refusing the intermediate coverage and only will take 6 units of lispro
[2021-02-11] MEDS: Atorvastatin Calcium 10 MG TABLET PO (22:01)
[2021-02-11] MEDS: Insulin Glargine,Hum.rec.anlog 100 UNIT/ML 10 ML VIAL 26 UNIT SUBCUT (22:01)
[2021-02-11] MEDS: Mirtazapine 15 MG TABLET 45 MG PO (22:03)
[2021-02-12] VITALS (9 sets, daily range): BP systolic 172–190; BP diastolic 78–88; PULSE 66–79; RESP 14–18; TEMP 36.3–36.8; O2SAT 93–98
--- NOTE | 2021-02-12 03:53 | PC.NURSE ---
pt refused both the 55 units of lantus and the 12 units lispro stating that's not what she takes at home and would only like to take 26 units of lantus and 6 units of lispro. This RN educated patient about the differences between the two types of insulin, but she continued to refuse. MD notified, and the orders were changed to reflect the amount of insulin she had reported wanting. pt reported not using sliding scale at home and only using lantus in the morning and at night. This RN again educated the patient on the use of a sliding scale and the importance of adhering to the scale based on her blood sugars.
[2021-02-12 07:22] LABS: Glucose, Whole Blood 126 mg/dL (60-115)
[2021-02-12] MEDS: Albuterol/Iprat 2.5/0.5MG 3 ML AMPUL.NEB INHALE ×2 (07:54→11:27)
[2021-02-12] MEDS: Insulin Glargine,Hum.rec.anlog 100 UNIT/ML 10 ML VIAL 65 UNIT SUBCUT (08:26)
[2021-02-12] MEDS: predniSONE 20 MG TABLET 40 MG PO (08:26)
[2021-02-12 09:45] LABS: Anion Gap 11 (12-20); Blood Urea Nitrogen 60 mg/dL (9-16); Calcium 9.4 mg/dL (8.4-10.2); Carbon Dioxide 24 mmol/L (22-29); Chloride 109 mmol/L (96-108); Creatinine Clr Calc Pharmacy 32.6; Estimated Glomerular Filt Rate 26; Glucose Random 95 mg/dL (60-115); Potassium 4.3 mmol/L (3.3-5.1); Sodium 140 mmol/L (135-145)
--- NOTE | 2021-02-12 10:17 | PM.PNNEP ---
Subjective Subjective Date of Service: 02/12/21 Interval history: Events noted. All recent data reviewed. Serum K normalized. Physical Exam Vital Signs: Vital Signs: Last Vital Signs Temp 98.2 F 02/12/21 07:10 Pulse 72 02/12/21 08:46 Resp 18 02/12/21 07:10 BP 172/79 H 02/12/21 07:10 Pulse Ox 95 02/12/21 08:46 Body Mass Index 36.2 Const: General: no acute distress HENMT: Head: Yes atraumatic Eyes: EOM: EOMs intact bilaterally Neck: Neck: Yes supple Resp: Auscultation: diminished lung sounds Cardio: Rate: regular rate GI: Palpation (GI): Soft to palpation Neuro: General: moves all extremities Objective Data Labs CBC & Chem 7: 02/09/21 05:54 02/12/21 08:52 Labs: Laboratory Results - last 24 hr 02/11/21 02/11/21 02/11/21 11:12 11:29 16:39 Sodium Potassium 5.4 H Chloride Carbon Dioxide Anion Gap BUN Creatinine Estim Creat Clear Calc Estimated GFR POC Glucose 231 H 219 H Random Glucose Calcium 02/11/21 02/12/21 02/12/21 19:55 07:09 08:52 Sodium 140 Potassium 4.3 D Chloride 109 H Carbon Dioxide 24 Anion Gap 11 L BUN 60 H Creatinine 1.93 H Estim Creat Clear Calc 32.6 Estimated GFR 26 POC Glucose 213 H 126 H Random Glucose 95 Calcium 9.4 Procedures Date of Service Date of Service: 02/12/21 Assessment & Plan Assessment and plan (1) Acute kidney injury: Status: Acute Assessment and Plan: Has stage 3b CKD most likely due to DKD and was being treated with combination of ARB and mineralocoricoid receptor antagonist which contributed to he issue with hyperkalemia. She has relative insulin deficiency and hyperglycemia causing transcellular shift of K as well. She is currently? off? olmesartan and spironolactone. She had mild TARAN Good blood sugar control Continue to hold olmesartan & spironolactone Hold heparin;Lokelma 10 gm daily 2 Gram K diet. Continue rest of current management Shall closely follow up Time Spent With Patient Time: Total time spent is greater than 50% in coordination of care (as documented) at patient's floor/unit and/or counseling patient: Progress Note: Quality Stroke Does the patient have a stroke diagnosis?: No
[2021-02-12] MEDS: Labetalol HCL 200 MG TABLET PO (11:31)
[2021-02-12 11:33] LABS: Glucose, Whole Blood 147 mg/dL (60-115)
--- NOTE | 2021-02-12 11:35 | MHC.CM.PN ---
Per ROUNDS discussion/MD, Patient will be medically cleared for dc today.
--- NOTE | 2021-02-12 11:41 | MHC.CM.PN ---
IMM updated this morning with Patient, providing her with the original and placing a copy on the chart.Patient is aware and please to be going home today.Patient has [facility] who typically sends a RN 24-48 hours after dc to the home.
--- NOTE | 2021-02-12 12:46 | PM.DS ---
DS: Providers Provider Date of Service: 02/12/21 Date of admission: 02/08/21 04:06 Date of discharge: 02/12/21 Primary care physician: Unknown Physician Consults: 02/09/21 09:00 Consult to Nephrology Routine Consulting Provider: [facility] Reason for consultation: hyperK, cKD DS: Diagnosis Discharge Diagnosis (1) Acute kidney injury: Status: Acute DS: Summary Hospital Course Hospital Course: 65-year-old female with a past medical history of hypertension, hyperlipidemia, diabetes, asthma, chronic kidney disease presented to the hospital with a chief complaint of shortness of breath. Patient reported that over the past 2 days she has been having shortness of breath, constant in nature; not improving with her home inhalers; hence decided to come to the ER for further evaluation. Denies any cough or sputum production.? Denies any GI or symptoms. Denies any chest pain palpitations lightheadedness or dizziness. Review of all other systems is negative except mentioned above. Hospital course: Patient came to the hospital because of asthma exacerbation, also found to have an hyperkalemia: Patient was treated with nebs, steroids seems to be improving. His hyperkalemia-thought to be related to heparin use, improving after stopping heparin. In in addition her olmesartan, spironolactone/hctz on hold. Seen by Nephrology recommended to add lokelma once daily-monitor renal function and electrolyte outpatient with PCP and Nephrology and further management and use olmesartan, spironolactone/hctz - outpatient as per PCP and Nephrology. Hypertension : Hold navibilol , added labetalol. d/w nephrology-CKD : Seems near baseline Further management outpatient. Follow-up BMP and electrolytes outpatient. Above management discussed with the patient in detail length she understand and in agreement with the above plan, time spent 50 minutes and 50% time spent on counseling. Significant findings: As above. Procedures performed: None. Treatment and response: As above. Complications: None. Time Spent with Patient Time attestation: Total time spent providing and/or coordinating discharge services: Discharge coordination time: Greater than 30 minutes Quality: Stroke Does the patient have a stroke diagnosis?: No Physical Exam Vital Signs: Vital Signs: Last Vital Signs Temp 98.2 F 02/12/21 12:00 Pulse 78 02/12/21 12:00 Resp 18 02/12/21 12:00 BP 190/86 H 02/12/21 12:00 Pulse Ox 98 02/12/21 12:00 Body Mass Index 36.2 Gen: NAD HEENT: sclera anicteric, moist mucus membranes Neck: supple Lungs:? Air entry improving, slightly diminished at bases still has wheezing. Heart: regular rate and rhythm, no murmurs Abd: obese, soft, non-tender, non-distended Ext: no edema Skin: warm/well-perfused Neuro: alert and oriented x3, no focal findings Psych: appropriate affect DS: Data Data Completed and Pending Labs on day of discharge: Laboratory Results - last 24 hr 02/11/21 02/11/21 02/11/21 11:29 16:39 19:55 Sodium Potassium 5.4 H Chloride Carbon Dioxide Anion Gap BUN Creatinine Estim Creat Clear Calc Estimated GFR POC Glucose 219 H 213 H Random Glucose Calcium 02/12/21 02/12/21 02/12/21 07:09 08:52 11:11 Sodium 140 Potassium 4.3 D Chloride 109 H Carbon Dioxide 24 Anion Gap 11 L BUN 60 H Creatinine 1.93 H Estim Creat Clear Calc 32.6 Estimated GFR 26 POC Glucose 126 H 147 H Random Glucose 95 Calcium 9.4 Additional Comments Additional comments: cxr:IMPRESSION: No dense consolidation. Bronchial wall thickening can be seen with a small airways process such as asthma or atypical/viral infection. ? Discharge Plan Discharge Patient Disposition: Home, Self-Care Discharge Diagnosis: Asthma exacerbation, hyperkalemia. viral URI. Referrals: [facility] [Other] - 1 Week Physician,Unknown J [Primary Care Provider] - 1 Week Discharge Medications: New albuterol sulfate 90 mcg/actuation HFA aerosol inhaler 2 puff inhalation Q6H PRN (Reason: asthma) Qty: 8.5 RF: 0 guaifenesin 100 mg/5 mL liquid 200 mg PO Q4H PRN (Reason: cough) Qty: 200 RF: 0 benzonatate 100 mg Capsule 100 mg PO TID PRN (Reason: Cough) Qty: 10 RF: 0 labetalol 200 mg tablet 200 mg PO BID Qty: 60 RF: 0 famotidine 20 mg tablet 20 mg PO BEDTIME Qty: 30 RF: 0 Lokelma 10 gram powder in packet 10 g PO DAILY Qty: 30 RF: 0 prednisone 20 mg tablet 20 mg PO DAILY Qty: 2 RF: 0 Continued Lantus U-100 Insulin 100 unit/mL solution 55 unit subcut QAM RF: 0 simvastatin 10 mg tablet 1 tab PO BEDTIME RF: 0 (DME) OneTouch Ultra Test Strip MISCELLANEOUS QID RF: 0 mirtazapine 45 mg tablet 1 tab PO BEDTIME RF: 0 (DME) insulin syringe-needle U-100 1 mL 31 gauge x 5/16 syringe subcut BID RF: 0 Flovent HFA 220 mcg/actuation HFA aerosol inhaler 2 puff inhalation BID RF: 0 ergocalciferol (vitamin D2) 1,250 mcg (50,000 unit) capsule 1 cap PO QWEEK RF: 0 lorazepam 1 mg tablet 1 tab PO BID PRN (Reason: Insomnia) RF: 0 zolpidem 10 mg tablet 1 tab PO BEDTIME PRN (Reason: insomnia) RF: 0 Lantus U-100 Insulin 100 unit/mL solution 45 unit subcut BEDTIME RF: 0 Held spironolacton-hydrochlorothiaz 25-25 mg tablet 1 tab PO DAILY RF: 0 Hold Instructions: Resume on 02/18/21. Hold until seen by PCP, repeat BMP, further use outpatient as per PCP and Nephro. olmesartan 40 mg tablet 1 tab PO DAILY RF: 0 Hold Instructions: Resume on 02/18/21. hold until seen by pcp, repeat bmp,further use for pcp and nephro outpatiently. Discontinued nebivolol 20 mg tablet 1 tab PO DAILY RF: 0 Discharge Orders: Discharge Order (Routine); Ordered 02/11/21 Ordered By: Edenilson Vallejo Diet: advance to usual diet and low fat, low cholesterol Activity on Discharge: As tolerated Stand Alone Forms: Patient Portal Discharge page Care Plan Goals: Patient came to the hospital because of asthma exacerbation, also found to have an hyperkalemia: Patient was treated with nebs, steroids seems to be improving. His hyperkalemia-thought to be related to heparin use, improving after stopping heparin. In in addition her olmesartan, spironolactone/hctz on hold. Seen by Nephrology recommended to add lokema once daily-monitor renal function and electrolyte outpatient with PCP and Nephrology and further management and use of above-mentioned hypertension medications outpatient as per PCP and Nephrology. Hypertension : Hold navibilol , added labetalol. CKD : Seems near baseline Further management outpatient. Follow-up BMP and electrolytes outpatient. Health Concerns: As above. Plan of Treatment: As above. Assessment: As above.
== END 2021-02-12 15:19 | disposition home or self-care (01) | DRG 202 ==
LOC: HO.ED 02:02 → HO.EDOVER 04:13 → HO.IMC 17:46
PROVIDERS: Family Medicine; Internal Medicine Nephrology; Admitting Provider Hospitalist; Emergency Provider Student in an Organized Health Care Education/Training Program; Visit Provider Internal Medicine
DX: J45.31 Mild persistent asthma with (acute) exacerbation (principal); N18.4 Chronic kidney disease, stage 4 (severe); N17.9 Acute kidney failure, unspecified; E78.5 Hyperlipidemia, unspecified; E83.42 Hypomagnesemia; F39 Unspecified mood [affective] disorder; E87.5 Hyperkalemia; B97.10 Unspecified enterovirus as the cause of diseases classified elsewhere; I12.9 Hypertensive chronic kidney disease with stage 1 through stage 4 chronic kidney disease, or unspecified chronic kidney disease; E11.65 Type 2 diabetes mellitus with hyperglycemia; T38.0X5A Adverse effect of glucocorticoids and synthetic analogues, initial encounter; T45.515A Adverse effect of anticoagulants, initial encounter; Y92.239 Unspecified place in hospital as the place of occurrence of the external cause; J06.9 Acute upper respiratory infection, unspecified; E11.22 Type 2 diabetes mellitus with diabetic chronic kidney disease; Z20.822 Contact with and (suspected) exposure to COVID-19; Z87.891 Personal history of nicotine dependence; Z79.4 Long term (current) use of insulin; Z79.899 Other long term (current) drug therapy
CPT/HCPCS: 36415; 71045; 80048; 80053; 81001; 82947; 83036; 83735; 83880; 83930; 84132; 85025; 85027; 87633; 87635; 93005; 94640; 94644; 96365; 96375; 97110; 97116; 97162; 99285; J0610; J1650; J2920; J2930; J3475

== ENCOUNTER 2021-02-16 19:12 | Emergency (ER) | payer OTHER, SELFPAY ==
--- NOTE | 2021-02-16 | ECG_ITS ---
Test Reason : CHEST PAIN Blood Pressure : / mmHG Vent. Rate : 062 BPM Atrial Rate : 062 BPM P-R Int : 152 ms QRS Dur : 088 ms QT Int : 412 ms P-R-T Axes : 030 043 108 degrees QTc Int : 418 ms Normal sinus rhythm Nonspecific ST and T wave abnormality Abnormal ECG When compared with ECG of 09-FEB-2021 10:16, T wave inversion no longer evident in Inferior leads Referred By: Generic ED Physician Electronically Signed By:AGUILAR EUBANKS MD
[2021-02-16 19:20] VITALS: BP 115/80; BP 154/49; PULSE 70; PULSE 77; RESP 16; TEMP 36.9; O2SAT 96; O2SAT 98; BMI 36.9
[2021-02-16 19:46] LABS: Hematocrit 29.7 % (37.0-47.0); Hemoglobin 9.5 g/dl (12.0-16.0); Mean Corpuscular Hemoglobin 27.7 pg (27.0-33.0); Mean Corpuscular Volume 86.6 fL (80.0-98.0); Mean Platelet Volume 11.8 fL (9.4-12.3); Platelet Count 192 X10*3/uL (160-400); Red Blood Count 3.43 X10*6/uL (4.20-5.50); Red Cell Distribution Width 14.6 % (11.0-16.0); White Blood Count 11.3 X10*3/uL (4.8-10.8)
[2021-02-16 19:58] LABS: Anion Gap 13 (12-20); Blood Urea Nitrogen 43 mg/dL (9-16); Calcium 8.5 mg/dL (8.4-10.2); Carbon Dioxide 24 mmol/L (22-29); Chloride 108 mmol/L (96-108); Creatinine Clr Calc Pharmacy 30.3; Estimated Glomerular Filt Rate 26; Glucose Random 139 mg/dL (60-115); Sodium 141 mmol/L (135-145)
[2021-02-16 20:15] LABS: Band Neutrophils Percent 4 % (3-5); Eosinophils Absolute Manual 0.5 X10*3/uL (0.0-0.4); Eosinophils Percent Manual 4 % (0-4); Large Platelet PRESENT; Lymphocytes Absolute Manual 1.5 X10*3/uL (1.2-4.9); Lymphocytes Percent Manual 13 % (20-40); Monocytes Absolute Manual 0.3 X10*3/uL (0.1-1.2); Monocytes Percent Manual 3 % (2-11); Myelocytes Absolute 0.2 X10*/uL; Myelocytes Percent 2 %; Neutrophils Absolute Manual 8.8 X10*3/uL (2.0-8.3); Neutrophils Percent Manual 74 % (45-73); Platelet Estimate NORMAL (NORMAL); Platelet Morphology Comment NOTED; Polychromasia 1+ (0-2) /OIF; RBC Morphology NOTED; Smudge Cells PRESENT
[2021-02-16 20:16] LABS: Troponin-I High Sensitivity 45.5 ng/L (<3.5-17.0)
--- NOTE | 2021-02-16 20:37 | PC.NURSE ---
patient a&ox3, iv inserted, labs drawn, pvc monitor applied, vss, pt awaiting provider, will continue to monitor.
--- NOTE | 2021-02-16 21:18 | ECG_ITS ---
Test Reason : REPEAT EKG Blood Pressure : / mmHG Vent. Rate : 063 BPM Atrial Rate : 063 BPM P-R Int : 142 ms QRS Dur : 092 ms QT Int : 410 ms P-R-T Axes : 048 054 007 degrees QTc Int : 419 ms Normal sinus rhythm Nonspecific T wave abnormality Abnormal ECG When compared with ECG of 16-FEB-2021 19:30, No significant change was found Referred By: Phyllis Ramos Electronically Signed By:AGUILAR EUBANKS MD
--- NOTE | 2021-02-16 21:18 | ED_ITS ---
HPI - Chest Pain General Chief Complaint: Chest Pain Stated Complaint: chest pain Time Seen by Provider: 02/16/21 21:08 Source: patient Mode of arrival: ambulatory Limitations: no limitations History of Present Illness HPI narrative: Patient comes to the emergency room complaining of epigastric burning sensation for the last 6 hours. Patient reports that at 15:30, she started having epigastric burning sensation. Patient is known to have GERD. Patient states that when she was discharged from they discontinued her omeprazole which was working well for her. Patient has any medication that is not working well. Patient states she has no chest pain or shortness of breath, no palpitations. Since she got here the discomfort/burning has been decreasing. Related Data Home Medications Medication Instructions Recorded Confirmed blood sugar diagnostic (OneTouch 02/08/21 02/08/21 Ultra Test) ergocalciferol (vitamin D2) 1,250 1 cap PO QWEEK 02/08/21 02/08/21 mcg (50,000 unit) capsule fluticasone propionate 220 2 puff INHALATION BID 02/08/21 02/08/21 mcg/actuation HFA aerosol inhaler (Flovent HFA) insulin glargine 100 unit/mL 45 unit SUBCUT BEDTIME 02/08/21 02/08/21 subcutaneous solution (Lantus U-100 Insulin) insulin glargine 100 unit/mL 55 unit SUBCUT QAM 02/08/21 02/08/21 subcutaneous solution (Lantus U-100 Insulin) insulin syringe-needle U-100 1 mL 02/08/21 02/08/21 31 gauge x 5/16 lorazepam 1 mg tablet 1 tab PO BID PRN 02/08/21 02/08/21 mirtazapine 45 mg tablet 1 tab PO BEDTIME 02/08/21 02/08/21 olmesartan 40 mg tablet 1 tab PO DAILY 02/08/21 02/08/21 simvastatin 10 mg tablet 1 tab PO BEDTIME 02/08/21 02/08/21 spironolactone 25 1 tab PO DAILY 02/08/21 02/08/21 mg-hydrochlorothiazide 25 mg tablet zolpidem 10 mg tablet 1 tab PO BEDTIME PRN 02/08/21 02/08/21 Previous Rx's Medication Instructions Recorded albuterol sulfate 90 mcg/actuation 2 puff INHALATION Q6H PRN #8.5 g 02/11/21 aerosol inhaler benzonatate 100 mg capsule 100 mg PO TID PRN #10 cap 02/11/21 guaifenesin 100 mg/5 mL oral liquid 200 mg (10 mL) PO Q4H PRN #200 ml 02/11/21 famotidine 20 mg tablet 20 mg PO BEDTIME #30 tab 02/12/21 labetalol 200 mg tablet 200 mg PO BID #60 tab 02/12/21 prednisone 20 mg tablet 20 mg PO DAILY #2 tab 02/12/21 sodium zirconium cyclosilicate 10 10 g PO DAILY #30 ea 02/12/21 gram oral powder packet (Lokelma) pantoprazole 20 mg tablet,delayed 20 mg PO DAILY #20 tab 02/17/21 release Allergies Allergy/AdvReac Type Severity Reaction Status Date / Time lisinopril [From ZESTRIL] Allergy Intermediate CHOKING Verified 02/08/21 05:30 amlodipine Allergy Unknown Verified 02/08/21 05:30 Review of Systems Review of Systems: Constitutional : No Weight loss, No Fever, No Chills, No Ni ght Sweats, No Fatigue, No Malaise ENT/Mouth : No Hearing loss, No Ear Pain, No Nasal Congestion, No Sinus Pain, No Hoarseness, No sore throat, No Rhinorrhea, No Swallowing Difficulty Eyes: No Eye Pain, No Swelling, No Redness, No Foreign Body, No Discharge, No Vision Changes Cardiovascular : No Chest Pain, No SOB, No Dyspnea on Exertion, No Orthopnea, No Edema, No Palpitations Respiratory : No Cough, No Sputum, No Wheezing, No Smoke Exposure, No Dyspnea Gastrointestinal : No Nausea, No Vomiting, No Diarrhea, No Constipation, complaining of epigastric burning sensation, No Hematochezia, No Melena Genitourinary : no irregular bleeding, No Dysuria, No Urinary Frequency, No Hematuria, No Urinary Incontinence, No Urgency, No Flank Pain, No Urinary Flow Changes, No Hesitancy Musculoskeletal : No joint pain, No Myalgias, No Joint Swelling Skin : No Skin Lesions, No rash Neuro : No Weakness, No Numbness, No Paresthesias, No Loss of Consciousness, No Dizziness, No Headache Psych : No Anxiety/Panic, No Depression, No SI/HI/AH/VH, No Social Issues, Heme/Lymph: No Bruising, No Bleeding,No Lymphadenopathy Endocrine : No Polyuria, No Polydipsia, No Temperature Intolerance [facility] Past Medical History Medical History Asthma Diabetes HTN (hypertension) Social History Social History Household Members: None Housing: House Do you presently have visiting nurse or other home services: No Alcohol intake: never Patient Tobacco Use Status: Former Tobacco user Use of substances other than those prescribed or required for medical reasons: No Advance Directives: No Advance Directives Information Provided: Yes service: No Current occupational status: unemployed Physical Exam Vital Signs: Vital Signs: Last Vital Signs Temp 98.1 F 02/16/21 23:58 Pulse 70 02/16/21 23:58 Resp 16 02/16/21 23:58 BP 136/40 L 02/16/21 23:58 Pulse Ox 96 02/16/21 23:58 Body Mass Index 36.9 Const: Other: Appearance: Alert. Oriented X3. No acute distress. Eyes: Pupils equal, round and reactive to light. ENT: Pharynx normal. Neck: Normal inspection. Neck supple. No lymph nodes noted. No crepitus CVS: Normal heart rate and rhythm. Pulses normal. Normal S1 and S2, no reproducible chest pain Respiratory: No respiratory distress. Breath sounds normal. No Wheezing. No rales Abdomen: Soft and nontender. No rigidity. No distention. good BS x4 Skin: Skin warm and dry. Normal skin color. Normal skin turgor. Extremities: No lower extremity edema. No Lacerations. No Rash Neuro: Oriented X 3. No motor deficit. No sensory deficit. Moving all extermities. No slurred speech. Course Course Course Narrative: Patient states that she feels better. Troponin 1 and 2 of 45.5 and 45.7 respectively. After the GI cocktail, patient states that she feels better. Patient requesting to be restarted on omeprazole twice a day. Patient denies chest pain, no shortness of breath. MDM - Chest Pain Lab Data Result diagrams: 02/16/21 19:40 02/16/21 19:40 Labs: Lab Results 02/16/21 02/16/21 02/16/21 Range/Units 19:40 19:40 19:40 WBC 11.3 H (4.8-10.8) X10*3/uL RBC 3.43 L (4.20-5.50) X10*6/uL Hgb 9.5 L (12.0-16.0) g/dl Hct 29.7 L (37.0-47.0) % MCV 86.6 (80.0-98.0) fL MCH 27.7 (27.0-33.0) pg MCHC 32.0 (31.0-35.0) g/dl RDW 14.6 (11.0-16.0) % Plt Count 192 (160-400) X10*3/uL MPV 11.8 (9.4-12.3) fL Immature Gran % (Auto) Cancelled Neut % (Auto) Cancelled Lymph % (Auto) Cancelled [place] % (Auto) Cancelled Eos % (Auto) Cancelled Baso % (Auto) Cancelled Lymph # (Auto) Cancelled [place] # (Auto) Cancelled Eos # (Auto) Cancelled Baso # (Auto) Cancelled Abs Immat Gran (auto) Cancelled Absolute Neuts (auto) Cancelled Absolute Nucleated RBC 0.000 (0.0-0.012) X10*3/uL Nucleated RBC % (auto) 0.0 (0.0-0.2) /100WBC Neutrophils % (Manual) 74 H (45-73) % Band Neutrophils % 4 (3-5) % Lymphocytes % (Manual) 13 L (20-40) % Monocytes % (Manual) 3 (2-11) % Eosinophils % (Manual) 4 (0-4) % Myelocytes % 2 % Abs Neuts (Manual) 8.8 H (2.0-8.3) X10*3/uL Lymphocytes # (Manual) 1.5 (1.2-4.9) X10*3/uL Monocytes # (Manual) 0.3 (0.1-1.2) X10*3/uL Eosinophils # (Manual) 0.5 H (0.0-0.4) X10*3/uL Myelocytes # 0.2 X10*/uL Smudge Cells PRESENT Platelet Estimate NORMAL (NORMAL) Large Platelets PRESENT Plt Morphology Comment NOTED RBC Morphology NOTED Polychromasia 1+ (0-2) /OIF Sodium 141 (135-145) mmol/L Potassium 4.0 (3.3-5.1) mmol/L Chloride 108 (96-108) mmol/L Carbon Dioxide 24 (22-29) mmol/L Anion Gap 13 (12-20) BUN 43 H (9-16) mg/dL Creatinine 1.95 H (0.5-1.4) mg/dL Estim Creat Clear Calc 30.3 Estimated GFR 26 Random Glucose 139 H (60-115) mg/dL Calcium 8.5 D (8.4-10.2) mg/dL Troponin I High Sens 45.5 H* (<3.5-17.0) ng/L // Range/Units 22:33 WBC (4.8-10.8) X10*3/uL RBC (4.20-5.50) X10*6/uL Hgb (12.0-16.0) g/dl Hct (37.0-47.0) % MCV (80.0-98.0) fL MCH (27.0-33.0) pg MCHC (31.0-35.0) g/dl RDW (11.0-16.0) % Plt Count (160-400) X10*3/uL MPV (9.4-12.3) fL Immature Gran % (Auto) Neut % (Auto) Lymph % (Auto) [place] % (Auto) Eos % (Auto) Baso % (Auto) Lymph # (Auto) [place] # (Auto) Eos # (Auto) Baso # (Auto) Abs Immat Gran (auto) Absolute Neuts (auto) Absolute Nucleated RBC (0.0-0.012) X10*3/uL Nucleated RBC % (auto) (0.0-0.2) /100WBC Neutrophils % (Manual) (45-73) % Band Neutrophils % (3-5) % Lymphocytes % (Manual) (20-40) % Monocytes % (Manual) (2-11) % Eosinophils % (Manual) (0-4) % Myelocytes % % Abs Neuts (Manual) (2.0-8.3) X10*3/uL Lymphocytes # (Manual) (1.2-4.9) X10*3/uL Monocytes # (Manual) (0.1-1.2) X10*3/uL Eosinophils # (Manual) (0.0-0.4) X10*3/uL Myelocytes # X10*/uL Smudge Cells Platelet Estimate (NORMAL) Large Platelets Plt Morphology Comment RBC Morphology Polychromasia /OIF Sodium (135-145) mmol/L Potassium (3.3-5.1) mmol/L Chloride (96-108) mmol/L Carbon Dioxide (22-29) mmol/L Anion Gap (12-20) BUN (9-16) mg/dL Creatinine (0.5-1.4) mg/dL Estim Creat Clear Calc Estimated GFR Random Glucose (60-115) mg/dL Calcium (8.4-10.2) mg/dL Troponin I High Sens 45.7 H* (<3.5-17.0) ng/L ECG Data ECG #1: Attestation: I personally reviewed and interpreted this ECG as follows: (Normal sinus rhythm, heart rate 63, nonspecific T-wave abnormalities in leads V5 to V6, QTC 419) ECG #2: Attestation: I personally reviewed and interpreted this ECG as follows: (Normal sinus rhythm, heart rate 63, nonspecific T-wave abnormalities in V5 V6, no changes from previous EKG) Discharge Plan Discharge Clinical Impression: Epigastric discomfort Patient Disposition: Home, Self-Care Instructions: Gastritis (ED), Diet for Stomach Ulcers and Gastritis (ED) Additional Instructions: Please follow-up with your primary care physician tomorrow. If you have any worsening or new symptoms, please return to the emergency room or call 911 Prescriptions: New pantoprazole 20 mg tablet,delayed release (DR/EC) 20 mg PO DAILY Qty: 20 RF: 0 No Action Lantus U-100 Insulin 100 unit/mL solution 55 unit subcut QAM RF: 0 spironolacton-hydrochlorothiaz 25-25 mg tablet 1 tab PO DAILY RF: 0 Hold Instructions: Resume on 02/18/21. Hold until seen by PCP, repeat BMP, further use outpatient as per PCP and Nephro. simvastatin 10 mg tablet 1 tab PO BEDTIME RF: 0 (DME) OneTouch Ultra Test Strip MISCELLANEOUS QID RF: 0 mirtazapine 45 mg tablet 1 tab PO BEDTIME RF: 0 (DME) insulin syringe-needle U-100 1 mL 31 gauge x 5/16 syringe subcut BID RF: 0 Flovent HFA 220 mcg/actuation HFA aerosol inhaler 2 puff inhalation BID RF: 0 ergocalciferol (vitamin D2) 1,250 mcg (50,000 unit) capsule 1 cap PO QWEEK RF: 0 lorazepam 1 mg tablet 1 tab PO BID PRN (Reason: Insomnia) RF: 0 zolpidem 10 mg tablet 1 tab PO BEDTIME PRN (Reason: insomnia) RF: 0 olmesartan 40 mg tablet 1 tab PO DAILY RF: 0 Hold Instructions: Resume on 02/18/21. hold until seen by pcp, repeat bmp,fu rther use for pcp and nephro outpatiently. Lantus U-100 Insulin 100 unit/mL solution 45 unit subcut BEDTIME RF: 0 albuterol sulfate 90 mcg/actuation HFA aerosol inhaler 2 puff inhalation Q6H PRN (Reason: asthma) Qty: 8.5 RF: 0 guaifenesin 100 mg/5 mL liquid 200 mg PO Q4H PRN (Reason: cough) Qty: 200 RF: 0 benzonatate 100 mg Capsule 100 mg PO TID PRN (Reason: Cough) Qty: 10 RF: 0 labetalol 200 mg tablet 200 mg PO BID Qty: 60 RF: 0 famotidine 20 mg tablet 20 mg PO BEDTIME Qty: 30 RF: 0 Lokelma 10 gram powder in packet 10 g PO DAILY Qty: 30 RF: 0 prednisone 20 mg tablet 20 mg PO DAILY Qty: 2 RF: 0
[2021-02-16 21:42] VITALS: BP 170/69; PULSE 71; RESP 18; TEMP 36.9; O2SAT 97
--- NOTE | 2021-02-16 21:44 | PC.NURSE ---
patient a&ox3, pt medicated per order, c/0 06/05 midsternal chest pain, court monitor sinus jemal, vss, family at bedside, will continue to monitor.
[2021-02-16] MEDS: Magnesium Hydrox/Alum Hydrox 30 ML ORAL.SUSP PO (21:47)
[2021-02-16] MEDS: Lidocaine HCl Viscous 2 % 15 ML SOLUTION MUCOUS MEM (21:47)
[2021-02-16] MEDS: Famotidine/PF 20 MG/2 ML VIAL IVPUSH (21:48)
--- NOTE | 2021-02-16 21:53 | PC.NURSE ---
called RT for piero
[2021-02-16 22:00] VITALS: PULSE 65; O2SAT 96
[2021-02-16] MEDS: Albuterol Sulfate (0.083%) 2.5 MG/3 ML VIAL.NEB 5 MG INHALE (22:00)
[2021-02-16 23:08] LABS: Troponin-I High Sensitivity 45.7 ng/L (<3.5-17.0)
[2021-02-16 23:58] VITALS: BP 136/40; PULSE 70; RESP 16; TEMP 36.7; O2SAT 96
== END 2021-02-17 00:56 | disposition home or self-care (01) ==
PROVIDERS: Emergency Provider Emergency Medicine
DX: R07.9 Chest pain, unspecified (principal); R10.13 Epigastric pain; Z87.891 Personal history of nicotine dependence; Z79.899 Other long term (current) drug therapy
CPT/HCPCS: 36415; 80048; 84484; 85007; 85027; 93005; 94640; 96374; 99285

== ENCOUNTER 2021-03-22 12:57 | Emergency (ER) | payer OTHER, SELFPAY ==
--- NOTE | ~2021-03-22 | XR_ITS ---
EXAMINATION: XR HAND, LEFT CLINICAL INFORMATION: Left hand 5th digit pain. COMPARISON: None TECHNIQUE: PA, lateral, and oblique views of the left hand. FINDINGS: Flexion deformity is noted at the 5th PIP joint. There is no evidence of acute fracture or significant degenerative changes in the left hand and left wrist. No focal erosion. No soft tissue calcifications. XR/XR hand LT min 3V IMPRESSION: No acute osseous abnormality in the left hand. Significant flexion deformity at the left hand 5th PIP joint.
[2021-03-22 13:02] VITALS: BP 142/77; PULSE 86; RESP 16; TEMP 36.6; O2SAT 99; BMI 36.7
--- NOTE | 2021-03-22 15:06 | ED.EXTPRO ---
HPI - Extremity Problem General Chief complaint: Extremity Injury, Upper Stated complaint: L HAND PAIN Time Seen by Provider: 03/22/21 15:06 History of Present Illness HPI Narrative: Patient complains of left hand pain for 1 week with no injury the hand feels very stiff it is hard to bend an open it, there has been no fever no chills Related Data Home Medications Medication Instructions Recorded Confirmed blood sugar diagnostic (OneTouch 02/08/21 02/08/21 Ultra Test) ergocalciferol (vitamin D2) 1,250 1 cap PO QWEEK 02/08/21 02/08/21 mcg (50,000 unit) capsule fluticasone propionate 220 2 puff INHALATION BID 02/08/21 02/08/21 mcg/actuation HFA aerosol inhaler (Flovent HFA) insulin glargine 100 unit/mL 45 unit SUBCUT BEDTIME 02/08/21 02/08/21 subcutaneous solution (Lantus U-100 Insulin) insulin glargine 100 unit/mL 55 unit SUBCUT QAM 02/08/21 02/08/21 subcutaneous solution (Lantus U-100 Insulin) insulin syringe-needle U-100 1 mL 02/08/21 02/08/21 31 gauge x 08/11 lorazepam 1 mg tablet 1 tab PO BID PRN 02/08/21 02/08/21 mirtazapine 45 mg tablet 1 tab PO BEDTIME 02/08/21 02/08/21 olmesartan 40 mg tablet 1 tab PO DAILY 02/08/21 02/08/21 simvastatin 10 mg tablet 1 tab PO BEDTIME 02/08/21 02/08/21 spironolactone 25 1 tab PO DAILY 02/08/21 02/08/21 mg-hydrochlorothiazide 25 mg tablet zolpidem 10 mg tablet 1 tab PO BEDTIME PRN 02/08/21 02/08/21 Previous Rx's Medication Instructions Recorded albuterol sulfate 90 mcg/actuation 2 puff INHALATION Q6H PRN #8.5 g 02/11/21 aerosol inhaler benzonatate 100 mg capsule 100 mg PO TID PRN #10 cap 02/11/21 guaifenesin 100 mg/5 mL oral liquid 200 mg (10 mL) PO Q4H PRN #200 ml 02/11/21 famotidine 20 mg tablet 20 mg PO BEDTIME #30 tab 02/12/21 labetalol 200 mg tablet 200 mg PO BID #60 tab 02/12/21 prednisone 20 mg tablet 20 mg PO DAILY #2 tab 02/12/21 sodium zirconium cyclosilicate 10 10 g PO DAILY #30 ea 02/12/21 gram oral powder packet (Lokelma) pantoprazole 20 mg tablet,delayed 20 mg PO DAILY #20 tab 02/17/21 release hydrocodone 5 mg-acetaminophen 325 1 tab PO Q4-6H PRN #10 tab 03/22/21 mg tablet Allergies Allergy/AdvReac Type Severity Reaction Status Date / Time lisinopril [From ZESTRIL] Allergy Intermediate CHOKING Verified 02/08/21 05:30 amlodipine Allergy Unknown Verified 02/08/21 05:30 Review of Systems Review of Systems: Positive for left hand pain Negatives no fever no chills no headache no neck pain no radiating pain from the neck no swelling no redness no wound no numbness no weakness Yes all other systems are reviewed and are negative PMFSH Past Medical History Source: nursing notes reviewed Medical History Asthma Diabetes HTN (hypertension) Social History Social History Household Members: None Housing: House Do you presently have visiting nurse or other home services: No Alcohol intake: never Patient Tobacco Use Status: Former Tobacco user Advance Directives: No Advance Directives Information Provided: Yes service: No Current occupational status: unemployed Physical Exam Vital Signs: Vital Signs: Last Vital Signs Temp 97.8 F 03/22/21 13:02 Pulse 86 03/22/21 13:02 Resp 16 03/22/21 13:02 BP 142/77 H 03/22/21 13:02 Pulse Ox 99 03/22/21 13:02 BMI result Body Mass Index 36.7 General appearance comfortable no distress Head is normocephalic atraumatic Neck is supple Respiratory no distress Extremities the left wrist has good range of motion but the fingers and the hand have range of motion limited by pain, strength and sensation seem to be intact there is no swelling no redness, pulses are 2+ and symmetrical at both radial pulses, cap refill is normal, Phalen's test for carpal tunnel did produce pain and tingling in the fingers Other extremities normal Neuro no focal motor sensory deficits Course Course Course Narrative: X-ray did not reveal any acute pathology of the left wrist or hand The patient is diabetic with symptoms that may be carpal tunnel so informed her mint was a possibility we gave her a Velcro splint and advised close follow-up with the hand doctor for possible carpal tunnel Discharge Plan Discharge Clinical Impression: Carpal tunnel syndrome of left wrist Patient Disposition: Home, Self-Care Additional Instructions: You may have carpal tunnel in the left hand so follow closely with the hand doctor As appearance of the hand and wrist were normal I do not think there is a skin infection, pulses were normal in circulation looks good If you develop increased pain swelling fever or spreading redness return immediately to the ER for recheck, or for any worse condition or concerns I wrote for hydrocodone which is mixed with Tylenol so use 1 or the other Hydrocodone is a narcotic and it may cause nausea or dizziness so stop it if there are any side effects It may cause drowsiness so no driving for 6 hours after taking Prescriptions: New hydrocodone-acetaminophen 5-325 mg tablet 1 tab PO Q4-6H PRN (Reason: pain) Qty: 10 RF: 0 No Action Lantus U-100 Insulin 100 unit/mL solution 55 unit subcut QAM RF: 0 spironolacton-hydrochlorothiaz 25-25 mg tablet 1 tab PO DAILY RF: 0 Hold Instructions: Resume on 02/18/21. Hold until seen by PCP, repeat BMP, further use outpatient as per PCP and Nephro. simvastatin 10 mg tablet 1 tab PO BEDTIME RF: 0 (DME) OneTouch Ultra Test Strip MISCELLANEOUS QID RF: 0 mirtazapine 45 mg tablet 1 tab PO BEDTIME RF: 0 (DME) insulin syringe-needle U-100 1 mL 31 gauge x 5/16 syringe subcut BID RF: 0 Flovent HFA 220 mcg/actuation HFA aerosol inhaler 2 puff inhalation BID RF: 0 ergocalciferol (vitamin D2) 1,250 mcg (50,000 unit) capsule 1 cap PO QWEEK RF: 0 lorazepam 1 mg tablet 1 tab PO BID PRN (Reason: Insomnia) RF: 0 zolpidem 10 mg tablet 1 tab PO BEDTIME PRN (Reason: insomnia) RF: 0 olmesartan 40 mg tablet 1 tab PO DAILY RF: 0 Hold Instructions: Resume on 02/18/21. hold until seen by pcp, repeat bmp,further use for pcp and nephro outpatiently. Lantus U-100 Insulin 100 unit/mL solution 45 unit subcut BEDTIME RF: 0 albuterol sulfate 90 mcg/actuation HFA aerosol inhaler 2 puff inhalation Q6H PRN (Reason: asthma) Qty: 8.5 RF: 0 guaifenesin 100 mg/5 mL liquid 200 mg PO Q4H PRN (Reason: cough) Qty: 200 RF: 0 benzonatate 100 mg Capsule 100 mg PO TID PRN (Reason: Cough) Qty: 10 RF: 0 labetalol 200 mg tablet 200 mg PO BID Qty: 60 RF: 0 famotidine 20 mg tablet 20 mg PO BEDTIME Qty: 30 RF: 0 Lokelma 10 gram powder in packet 10 g PO DAILY Qty: 30 RF: 0 prednisone 20 mg tablet 20 mg PO DAILY Qty: 2 RF: 0 pantoprazole 20 mg tablet,delayed release (DR/EC) 20 mg PO DAILY Qty: 20 RF: 0 Referrals: Christi Zaragoza MD [Physician] - 2 days (Left hand pain possible carpal tunnel) Interventions: ED Discharge Assessment Last Done: 03/22/21 16:10 Discharge Date/Time: 03/22/21 16:11
== END 2021-03-22 16:11 | disposition home or self-care (01) ==
PROVIDERS: Emergency Provider Emergency Medicine Emergency Medical Services; PCP Internal Medicine
DX: G56.02 Carpal tunnel syndrome, left upper limb (principal); I10 Essential (primary) hypertension; E11.9 Type 2 diabetes mellitus without complications; J45.909 Unspecified asthma, uncomplicated
CPT/HCPCS: 73130; 99283

== ENCOUNTER 2022-03-02 21:36 | Inpatient (IN) | payer OTHER, SELFPAY ==
--- NOTE | 2022-03-02 | ECG_ITS ---
Test Reason : sob Blood Pressure : / mmHG Vent. Rate : 092 BPM Atrial Rate : 092 BPM P-R Int : 156 ms QRS Dur : 090 ms QT Int : 354 ms P-R-T Axes : 042 043 003 degrees QTc Int : 437 ms Normal sinus rhythm T wave abnormality, consider inferior ischemia Abnormal ECG When compared with ECG of 16-FEB-2021 21:24, No significant change was found Referred By: Generic ED Physician Electronically Signed By:MAXINE FANG MD
--- NOTE | ~2022-03-02 | XR_ITS ---
EXAMINATION: XR CHEST CLINICAL INFORMATION: Cough and shortness of breath COMPARISON: 02/08/2021 TECHNIQUE: 2 views of the chest were obtained. FINDINGS: The heart is enlarged. There is no evidence of CHF. No infiltrates, effusions or lung masses are seen. XR/XR chest 2V IMPRESSION: Cardiomegaly. No acute intrathoracic disease.
[2022-03-02 21:50] VITALS: BP 160/80; PULSE 80; O2SAT 95; BMI 33.8
[2022-03-02 21:56] VITALS: BP 193/82; PULSE 86; RESP 15; TEMP 37.8; O2SAT 99
--- NOTE | 2022-03-02 21:56 | ED_ITS ---
HPI - URI/Sore Throat General Chief Complaint: Upper Respiratory Symptoms Stated Complaint: Headache for 1 week Time Seen by Provider: 03/02/22 21:54 Source: patient and EMS Mode of arrival: EMS Limitations: no limitations History of Present Illness HPI Narrative: 66 yo assigned female w/ PMHx significant for asthma, COPD, HTN, diabetes on insulin, and GERD presenting w/ 5 hour hx of fever and cough. Also reports LE edema, headache, SOB and burning chest discomfort with cough. Endorses use of motrin for pain. Denies dizziness, abd pain, N/V/D, changes to PO intake, and myaglias. Endorses exposure to grandson who developed cough and fever 2 days ago. MD elicited complaint: fever and cough Pertinent past history: COPD and asthma Onset (ago): hour(s) (5) Consistency: constant Severity: mild Able to tolerate fluids by mouth: Yes Exacerbating factors: nothing Relieving factors: nothing Context: sick contacts Associated symptoms: headache, cough and chest pain Related Data Home Medications Medication Instructions Recorded Confirmed blood sugar diagnostic (OneTouch 02/08/21 02/08/21 Ultra Test strips) ergocalciferol (vitamin D2) 1,250 1 cap PO QWEEK 02/08/21 02/08/21 mcg (50,000 unit) capsule fluticasone propionate 220 2 puff inhalation BID 02/08/21 02/08/21 mcg/actuation HFA aerosol inhaler (Flovent HFA) insulin glargine 100 unit/mL 45 unit subcut BEDTIME 02/08/21 02/08/21 subcutaneous solution (Lantus U-100 Insulin) insulin glargine 100 unit/mL 55 unit subcut QAM 02/08/21 02/08/21 subcutaneous solution (Lantus U-100 Insulin) insulin syringe-needle U-100 1 mL 02/08/21 02/08/21 31 gauge x 16 lorazepam 1 mg tablet 1 tab PO BID PRN Insomnia 02/08/21 02/08/21 mirtazapine 45 mg tablet 1 tab PO BEDTIME 02/08/21 02/08/21 olmesartan 40 mg tablet 1 tab PO DAILY 02/08/21 02/08/21 simvastatin 10 mg tablet 1 tab PO BEDTIME 02/08/21 02/08/21 spironolactone 25 1 tab PO DAILY 02/08/21 02/08/21 mg-hydrochlorothiazide 25 mg tablet zolpidem 10 mg tablet 1 tab PO BEDTIME PRN insomnia 02/08/21 02/08/21 Previous Rx's Medication Instructions Recorded albuterol sulfate 90 mcg/actuation 2 puff inhalation Q6H PRN asthma 02/11/21 aerosol inhaler #8.5 grams benzonatate 100 mg capsule 100 mg PO TID PRN Cough #10 caps 02/11/21 guaifenesin 100 mg/5 mL oral liquid 200 mg (10 mL) PO Q4H PRN cough 02/11/21 #200 mL famotidine 20 mg tablet 20 mg PO BEDTIME #30 tabs 02/12/21 labetalol 200 mg tablet 200 mg PO BID #60 tabs 02/12/21 prednisone 20 mg tablet 20 mg PO DAILY #2 tabs 02/12/21 sodium zirconium cyclosilicate 10 10 g PO DAILY #30 ea 02/12/21 gram oral powder packet (Lokelma) pantoprazole 20 mg tablet,delayed 20 mg PO DAILY #20 tabs 02/17/21 release hydrocodone 5 mg-acetaminophen 325 1 tab PO Q4-6H PRN pain #10 tabs 03/22/21 mg tablet Allergies Allergy/AdvReac Type Severity Reaction Status Date / Time lisinopril [From ZESTRIL] Allergy Intermediate [place]OKING Verified 02/08/21 05:30 amlodipine Allergy Unknown Verified 02/08/21 05:30 Review of Systems Review of Systems: Constitutional: + Fever/Chills, No Fatigue, No Malaise ENT/Mouth: No Ear Pain, + Nasal Congestion, No Hoarseness, No sore throat, No Rhinorrhea Eyes: No Eye Pain, No Swelling, No Redness Cardiovascular: + Chest Pain, + SOB, No Dyspnea on Exertion, No Orthopnea, No Edema, No Palpitations Respiratory: + Cough, + Sputum, + Wheezing Gastrointestinal: No Nausea, No Vomiting, No Diarrhea, No Constipation, No Abdominal pain Genitourinary: No Dysuria, No Urinary Frequency Musculoskeletal: No joint pain, No Myalgias, No Joint Swelling Skin: No Skin Lesions, No rash Neuro: No Weakness, No Dizziness, No Headache Yes all other systems are reviewed and are negative Constitutional: Constitutional: Reports as per [facility] Past Medical History Attestation statement: The following information was validated with the patient. Medical History Asthma Chronic kidney disease (CKD) stage G3b/A1, moderately decreased glomerular filtration rate (GFR) between 30-44 mL/min/1.73 square meter and albuminuria creatinine ratio less than 30 mg/g Diabetes Diabetes HTN (hypertension) Social History Social History Household Members: None Housing: House Do you presently have visiting nurse or other home services: No Alcohol intake: never Patient Tobacco Use Status: Former Tobacco user Advance Directives: No service: No Current occupational status: unemployed Physical Exam Vital Signs: Vital Signs: Last Vital Signs Temp 100 F 03/02/22 22:33 Pulse 85 03/02/22 22:34 Resp 22 H 03/02/22 22:33 BP 190/78 H 03/02/22 22:33 Pulse Ox 97 03/02/22 22:33 O2 Del Method 03/02/22 22:33 O2 Flow Rate 2 03/02/22 22:33 BMI result Body Mass Index 33.8 Const: General: cooperative, alert and awake Orientation/consciousness: patient oriented x3 Limitations: no limitations HEENT: Head: Yes normal to inspection and Yes atraumatic Ears: hearing grossly normal bilaterally General nose exam: Normal external nose present Face and sinus: Yes normal facial exam Eyes: General: appearance normal, both eyes and all related structures EOM: EOMs intact bilaterally Neck: Neck: Yes normal visual inspection, Yes trachea midline and Yes no JVD Chest: Chest palpation & inspection: normal inspection of the chest Resp: Effort & Inspection: not able to speak in complete sentences (shallow breaths), audible wheezes and Actively coughing Auscultation: wheezes scattered wheezes and throughout and diminished lung sounds diffuse Cardio: Rate: regular rate Heart sounds: S1 normal heart sound present and S2 normal heart sound present GI: Inspection: Yes normal to inspection Palpation (GI): Soft to palpation, nontender, no guarding and not rigid Skin: General skin exam: no rashes or lesions noted Rashes: no rashes Wounds: no wounds Neuro: General: patient oriented x3 and tone normal Extrem: Other: +mild bilateral LE edema, no calf ttp General: Yes normal to inspection Course Course Course Narrative: -2349--no leukocytosis. H&H stable. Chronic CKD. BNP mildly elevated to 201. Troponin 35.2 (elevated priors) > will obtain 3 are repeat -influenza A positive XR chest 2V IMPRESSION: Cardiomegaly. No acute intrathoracic disease. >> plan to admit for further management Medications Administered Discontinued Medications Generic Name Dose Route Start Last Admin Trade Name Freq PRN Reason Stop Dose Admin Albuterol/Ipratropium 3 ml 03/02/22 21:56 03/02/22 22:33 Albuterol/Iprat 2.5/0.5mg 3 Ml Ampul.Neb INHALE 03/02/22 21:57 3 ml ONCE ONE Administration Medical Decision Making Medical Decision Making [facility] Narrative: 66 yo assigned female w/ PMHx significant for asthma, COPD, HTN, diabetes on insulin, and GERD presenting w/ 5 hour hx of fever and cough. Also reports LE edema, headache, SOB and burning chest discomfort with cough. On exam mildly tachypneic, satting 86% on RA improved to > 97% on 2 L NC, diminished lung sounds throughout with scattered expiratory wheeze. + mild bilateral LE edema, no calf tenderness. Concern for asthma exacerbation vs viral syndrome vs pneumonia vs CHF. Rule out ACS. Symptoms atypical for PE. Plan: EKG, labs, COVID-19/influenza/RSV testing, CXR, DuoNeb, IV Solu-Medrol, admission Differential Diagnoses: Differential diagnosis (as above) Differential Diagnosis: The differential diagnosis associated with the patient?s presentation includes: Consideration of admission/observation: Consideration of Admission/Observation Escalation of care admission/observation considered: Escalation of care including admission/observation considered Discussion of management with other physician/healthcare provider/other source (e.g., hospitalist, it sales consultant, behavioral health): Discussion w/other physician/healthcare provider Management of the patient was discussed with: Hospitalist My interpretation is asthma exacerbation Independent interpretation of EKG, rhythm strip, radiology study: Independent interp EKG,rhythm strip, radiology study I performed an independent interpretation of the: EKG and Plain X-Ray Non-ED record review: Review of External (Non-ED) Record External record reviewed:: Inpatient record, Outpatient record, Prior outpatient labs and Prior outpatient radiology Chronic conditions affecting care (e.g., diabetes, HTN): Chronic conditions affecting care (e.g., diabetes, HTN) (asthma) Patient?s care impacted by: Diabetes Critical Care Time Critical Care Time Critical Care Time: Yes Total Critical Care Time: 40 Attestation: I have personally provided critical care time exclusive of time spent on separately billable procedures. Time includes review of lab data, radiology results, discussion with consultants, and monitoring for potential decompensation. Intervention performed as documented. Discharge Plan Discharge Clinical Impression: Influenza A, Asthma exacerbation Patient Disposition: Admitted As Inpatient Prescriptions: No Action Lantus U-100 Insulin 100 unit/mL solution 55 unit subcut QAM spironolacton-hydrochlorothiaz 25-25 mg tablet 1 tab PO DAILY Hold Instructions: Resume on 02/18/21. Hold until seen by PCP, repeat BMP, further use outpatient as per PCP and Nephro. simvastatin 10 mg tablet 1 tab PO BEDTIME (DME) OneTouch Ultra Test Strip MISCELLANEOUS QID mirtazapine 45 mg tablet 1 tab PO BEDTIME (DME) insulin syringe-needle U-100 1 mL 31 gauge x 5/16 syringe subcut BID Flovent HFA 220 mcg/actuation HFA aerosol inhaler 2 puff inhalation BID ergocalciferol (vitamin D2) 1,250 mcg (50,000 unit) capsule 1 cap PO QWEEK lorazepam 1 mg tablet 1 tab PO BID PRN (Reason: Insomnia) zolpidem 10 mg tablet 1 tab PO BEDTIME PRN (Reason: insomnia) olmesartan 40 mg tablet 1 tab PO DAILY Hold Instructions: Resume on 02/18/21. hold until seen by pcp, repeat bmp,further use for pcp and nephro outpatiently. Lantus U-100 Insulin 100 unit/mL solution 45 unit subcut BEDTIME albuterol sulfate 90 mcg/actuation HFA aerosol inhaler 2 puff inhalation Q6H PRN (Reason: asthma) Qty: 8.5 0RF guaifenesin 100 mg/5 mL liquid 200 mg PO Q4H PRN (Reason: cough) Qty: 200 0RF benzonatate 100 mg Capsule 100 mg PO TID PRN (Reason: Cough) Qty: 10 0RF labetalol 200 mg tablet 200 mg PO BID Qty: 60 0RF famotidine 20 mg tablet 20 mg PO BEDTIME Qty: 30 0RF Lokelma 10 gram powder in packet 10 g PO DAILY Qty: 30 0RF prednisone 20 mg tablet 20 mg PO DAILY Qty: 2 0RF pantoprazole 20 mg tablet,delayed release (DR/EC) 20 mg PO DAILY Qty: 20 0RF hydrocodone-acetaminophen 5-325 mg tablet 1 tab PO Q4-6H PRN (Reason: pain) Qty: 10 0RF
[2022-03-02 22:13] LABS: Basophils Percent Auto 0.2 % (0-2); Eosinophils Absolute Auto 0.1 X10*3/uL (0.0-0.4); Eosinophils Percent Auto 0.9 % (0-4); Hematocrit 33.9 % (37.0-47.0); Hemoglobin 10.9 g/dl (12.0-16.0); Imm Gran Abs Auto 0.02 X10*3/uL (0.00-0.03); Imm Gran Pct Auto 0.3 % (0.0-0.4); Lymphocytes Absolute Auto 0.5 X10*3/uL (1.2-4.9); MANUAL DIFF FLAG NO; Mean Corpuscular HGB Conc 32.2 g/dl (31.0-35.0); Mean Corpuscular Hemoglobin 25.7 pg (27.0-33.0); Mean Platelet Volume 12.2 fL (9.4-12.3); Monocytes Absolute Auto 0.4 X10*3/uL (0.1-1.2); Monocytes Percent Auto 6.3 % (2-11); Neutrophils Absolute Auto 5.5 x10*3/uL (2.0-8.3); Neutrophils Percent Auto 84.3 % (45-73); Platelet Count 162 X10*3/uL (160-400); Red Blood Count 4.24 X10*6/uL (4.20-5.50); Red Cell Distribution Width 14.8 % (11.0-16.0); White Blood Count 6.5 X10*3/uL (4.8-10.8)
[2022-03-02 22:33] VITALS: BP 190/78; PULSE 86; RESP 22; TEMP 37.7; O2SAT 97
[2022-03-02] MEDS: Albuterol/Iprat 2.5/0.5MG 3 ML AMPUL.NEB INHALE (22:33)
[2022-03-02 22:34] VITALS: PULSE 85; O2SAT 98
[2022-03-02 22:48] LABS: Bilirubin Total 0.2 mg/dL (0.0-1.0)
[2022-03-02 22:51] LABS: Influenza A PCR POSITIVE (Negative); Influenza B PCR NEGATIVE (Negative); Resp Syncy Virus RNA Qual PCR NEGATIVE (Negative); SARS COV2 PCR INHOUSE NEGATIVE (Negative)
[2022-03-02 23:37] LABS: Troponin-I High Sensitivity 35.2 ng/L (<3.5-17.0)
[2022-03-02 23:42] LABS: B Type Natriuretic Peptide 201 pg/mL (<100)
[2022-03-02 23:44] LABS: Alanine Aminotransferase 10 U/L (0-31); Albumin Level 3.1 g/dL (3.5-5.0); Alkaline Phosphatase 89 U/L (39-117); Anion Gap 15 (12-20); Aspartate Amino Transferase 16 U/L (5-31); Blood Urea Nitrogen 25 mg/dL (9-16); Calcium 8.3 mg/dL (8.4-10.2); Carbon Dioxide 25 mmol/L (22-29); Chloride 104 mmol/L (96-108); Creatinine Clr Calc Pharmacy 26.1; Estimated Glomerular Filt Rate 23; Glucose Random 263 mg/dL (60-115); Magnesium 1.5 mg/dL (1.6-2.6); Potassium 4.7 mmol/L (3.3-5.1); Sodium 139 mmol/L (135-145); Total Protein 6.2 g/dL (6.5-8.0)
[2022-03-02] MEDS: Albuterol Sulfate 2.5 MG, Albuterol Sulfate (0.083%) 2.5 MG 5 MG INHALE (23:46)
[2022-03-02 23:48] VITALS: PULSE 85; O2SAT 98
--- NOTE | 2022-03-02 23:49 | PC.NURSE ---
Pt influenza A positive, plan for admission, aware of plan of care. RT at bedside with inhaler. Awaiting additional meds.
[2022-03-02 23:56] VITALS: BP 167/66; PULSE 96; RESP 17; TEMP 38.1
[2022-03-02] MEDS: Oseltamivir Phosphate 75 MG CAPSULE PO (23:56)
[2022-03-02] MEDS: methylPREDNISolone Sod Succ 125 MG/2 ML VIAL IVPUSH (23:56)
[2022-03-02] MEDS: Magnesium Sulfate/H2O 2 GM/50 ML PIGGYBACK IV (23:57)
[2022-03-03] VITALS (8 sets, daily range): BP systolic 129–158; BP diastolic 67–81; PULSE 67–93; RESP 16–26; TEMP 36.9; O2SAT 93–96
[2022-03-03] MEDS: Albuterol/Iprat 2.5/0.5MG 3 ML AMPUL.NEB INHALE ×3 (00:14→16:06)
--- NOTE | 2022-03-03 01:34 | P.HPHOSP_ITS ---
History of Present Illness Date of Service: 03/03/22 Chief Complaint: Dyspnea This is a 66-year-old female with pertinent history of asthma, essential hypertension, insulin-dependent diabetes mellitus, mixed hyperlipidemia, gastroesophageal reflux disease, insomnia, CKD stage 3 who presents to the emergency department for evaluation of dyspnea. Patient states it started on the day of presentation. Initially had upper respiratory symptoms. She started having dyspnea, worse with exertion and wheezing. Patient took her albuterol home inhaler without relief. States grandson has similar symptoms with fever a nd cough. Patient also developed fever and chills. No chest discomfort, palpitations, abdominal pain, changes in urinary or bowel habits. Does not use oxygen at home In the emergency department, patient was found to be hypoxemic and positive for influenza A Review of Systems Constitutional: Constitutional: Reports chills, Reports fatigue, Reports fever(s) and Reports malaise Cardiovascular: Cardiovascular: Reports no additional cardiovascular complaints and Reports dyspnea on exertion Respiratory: Respiratory: Reports cough, Reports dyspnea on exertion and Reports wheezing Gastrointestinal: Gastrointestinal: Reports no additional gastrointestinal complaints Genitourinary: Genitourinary: Reports no additional female genitourinary complaints Endocrine: Endocrine: Reports fatigue Allergic/Immunologic: Allergic/Immunologic: Reports wheezing [facility] Medical History (Updated 03/03/22 @ 01:41 by Lance Zaman MD) Asthma Chronic kidney disease (CKD) stage G3b/A1, moderately decreased glomerular filtration rate (GFR) between 30-44 mL/min/1.73 square meter and albuminuria creatinine ratio less than 30 mg/g Diabetes Diabetes HTN (hypertension) Social History Household Members: None Housing: House Do you presently have visiting nurse or other home services: No Alcohol intake: never Patient Tobacco Use Status: Former Tobacco user Smoked in Last 30 Days: No Use of substances other than those prescribed or required for medical reasons: No Advance Directives: No service: No Current occupational status: unemployed Meds Allergies Allergy/AdvReac Type Severity Reaction Status Date / Time lisinopril [From ZESTRIL] Allergy Intermediate [place]OKING Verified 02/08/21 05:30 amlodipine Allergy Unknown Verified 02/08/21 05:30 Active Medications: Current Medications Acetaminophen (Acetaminophen 325 Mg Tablet) 650 mg PO Q6H PRN PRN Reason: Pain, Mild (Pain Scale 1-3) Albuterol/Ipratropium (Albuterol/Iprat 2.5/0.5mg 3 Ml Ampul.Neb) 3 ml INHALE RQ4H WHILE AWAKE [facility] Albuterol/Ipratropium (Albuterol/Iprat 2.5/0.5mg 3 Ml Ampul.Neb) 3 ml INHALE RQ4H PRN PRN Reason: wheezing Dextrose (Dextrose 50 % 25 Gm/50 Ml Syringe) 25 gm IVPUSH Q15M PRN; Protocol PRN Reason: per Hypoglycemia Standing Ord. Enoxaparin Sodium (Enoxaparin Sodium 30 Mg/0.3 Ml Syringe) 30 mg SUBCUT Q24H [place] Glucose (Glucose Gel 15 Gm Gel..Gram.) 15 gm PO Q15M PRN; Protocol PRN Reason: per Hypoglycemia Standing Ord. Insulin Human Lispro (Insulin Lispro 100 Unit/Ml 3 Ml Vial) 0 unit SUBCUT QIDACHS [facility]; Protocol Melatonin (Melatonin 3 Mg Tablet) 6 mg PO BEDTIME PRN PRN Reason: Insomnia Methylprednisolone Sodium Succinate (Methylprednisolone Sod Succ 40 Mg/Ml Vial) 40 mg IVPUSH Q12H [place] Ondansetron HCl (Ondansetron Hcl 4 Mg/2 Ml Vial) 4 mg IVPUSH Q8H PRN PRN Reason: Nausea and Vomiting Oseltamivir Phosphate (Oseltamivir Phosphate 75 Mg Capsule) 75 mg PO Q12H [facility] Stop: 03/07/22 13:31 Pharmacy Consult (Consult Rx Perform Med Rec) 1 each MISCELLANE ONCE STA Stop: 03/02/22 23:18 Sodium Chloride (0.9 % Sodium Chloride Flush 3 Ml Syringe) 3 ml IVFLUSH QSHIFT [facility] Home Medications Medication Instructions Recorded Confirmed Last Taken Type blood sugar diagnostic (OneTouch 02/08/21 02/08/21 Unknown History Ultra Test strips) ergocalciferol (vitamin D2) 1,250 1 cap PO QWEEK 02/08/21 02/08/21 Unknown History mcg (50,000 unit) capsule fluticasone propionate 220 2 puff inhalation BID 02/08/21 02/08/21 Unknown History mcg/actuation HFA aerosol inhaler (Flovent HFA) insulin glargine 100 unit/mL 45 unit subcut BEDTIME 02/08/21 02/08/21 Unknown History subcutaneous solution (Lantus U-100 Insulin) insulin glargine 100 unit/mL 55 unit subcut QAM 02/08/21 02/08/21 Unknown History subcutaneous solution (Lantus U-100 Insulin) insulin syringe-needle U-100 1 mL 02/08/21 02/08/21 Unknown History 31 gauge x 08/11 lorazepam 1 mg tablet 1 tab PO BID PRN Insomnia 02/08/21 02/08/21 Unknown History mirtazapine 45 mg tablet 1 tab PO BEDTIME 02/08/21 02/08/21 Unknown History olmesartan 40 mg tablet 1 tab PO DAILY 02/08/21 02/08/21 Unknown History simvastatin 10 mg tablet 1 tab PO BEDTIME 02/08/21 02/08/21 Unknown History spironolactone 25 1 tab PO DAILY 02/08/21 02/08/21 Unknown History mg-hydrochlorothiazide 25 mg tablet zolpidem 10 mg tablet 1 tab PO BEDTIME PRN insomnia 02/08/21 02/08/21 Unknown History Physical Exam Vital Signs and Narrative: Vital Signs: Last Vital Signs Temp 100.5 F H 03/02/22 23:56 Pulse 96 03/02/22 23:56 Resp 17 03/02/22 23:56 BP 167/66 H 03/02/22 23:56 Pulse Ox 97 03/02/22 22:33 O2 Del Method 03/02/22 23:56 O2 Flow Rate 2 03/02/22 23:56 BMI result Body Mass Index 33.8 Elderly female lying in bed in mild distress on 2 L supplemental oxygen Neck supple, no JVD Regular rate and rhythm, S1-S2 heard Bilateral wheezing appreciated Abdomen soft nontender, no guarding, no rigidity Patient is awake, alert and oriented to self, place, time and person ; no focal motor deficit Psych: Normal mood No pedal edema Results Labs CBC and Chem 7: 03/02/22 22:05 03/02/22 22:05 Labs: Laboratory Results - last 24 hr 03/02/22 03/02/22 03/02/22 22:05 22:05 22:05 MCV 80.0 MCH 25.7 L MCHC 32.2 RDW 14.8 Plt Count 162 MPV 12.2 Immature Gran % (Auto) 0.3 Neut % (Auto) 84.3 H Lymph % (Auto) 8.0 L [place] % (Auto) 6.3 Eos % (Auto) 0.9 Baso % (Auto) 0.2 Lymph # (Auto) 0.5 L [place] # (Auto) 0.4 Eos # (Auto) 0.1 Baso # (Auto) 0.0 Abs Immat Gran (auto) 0.02 Absolute Neuts (auto) 5.5 Absolute Nucleated RBC 0.000 Nucleated RBC % (auto) 0.0 Anion Gap 15 Estim Creat Clear Calc 26.1 Estimated GFR 23 Random Glucose 263 H Calcium 8.3 L Magnesium 1.5 L Total Bilirubin 0.2 AST 16 ALT 10 Alkaline Phosphatase 89 Troponin I High Sens B-Natriuretic Peptide Total Protein 6.2 L Albumin 3.1 L Influenza Type A (PCR) POSITIVE A Influenza Type B (PCR) NEGATIVE RSV RNA Qual (PCR) NEGATIVE SARS-CoV-2 RNA (RT-PCR) NEGATIVE 03/02/22 03/02/22 22:05 22:05 MCV MCH MCHC RDW Plt Count MPV Immature Gran % (Auto) Neut % (Auto) Lymph % (Auto) [place] % (Auto) Eos % (Auto) Baso % (Auto) Lymph # (Auto) [place] # (Auto) Eos # (Auto) Baso # (Auto) Abs Immat Gran (auto) Absolute Neuts (auto) Absolute Nucleated RBC Nucleated RBC % (auto) Anion Gap Estim Creat Clear Calc Estimated GFR Random Glucose Calcium Magnesium Total Bilirubin AST ALT Alkaline Phosphatase Troponin I High Sens 35.2 H B-Natriuretic Peptide 201 H Total Protein Albumin Influenza Type A (PCR) Influenza Type B (PCR) RSV RNA Qual (PCR) SARS-CoV-2 RNA (RT-PCR) Imaging Radiologist's Impressions: Impressions Chest X-Ray 03/02/22 22:11 IMPRESSION: Cardiomegaly. No acute intrathoracic disease. Assessment and Plan (1) Influenza A: Status: Acute (2) Asthma exacerbation: Status: Acute (3) HTN (hypertension): Status: Acute (4) Diabetes: Status: Acute (5) Chronic kidney disease (CKD) stage G3b/A1, moderately decreased glomerular filtration rate (GFR) between 30-44 mL/min/1.73 square meter and albuminuria creatinine ratio less than 30 mg/g: Status: Acute Plan This is a 66-year-old female with pertinent history of asthma, essential hypertension, insulin-dependent diabetes mellitus, mixed hyperlipidemia, gastroesophageal reflux disease, insomnia, CKD stage 3 who presents to the emergency department for evaluation of dyspnea. #.? Acute hypoxemic respiratory failure due to: #.? Acute exacerbation of asthma in the setting of influenza A infection -will admit patient with isolation precaution.? Currently on 2 L supplemental oxygen, monitor and wean as tolerated.? Continue IV steroids.? Initiated schedule and p.r.n. DuoNebs.? No concern for bacterial superinfection, defer antibiotics.? Initiating Tamiflu #.? [id number] diabetes mellitus with hyperglycemia: Reduce home basal regimen. Initiate Accu-Cheks with sliding scale insulin before meals and at bedtime #.? Essential hypertension:? Continue p.o. medications #.? Chronic kidney disease stage 3: Creatinine at baseline. Monitor and avoid nephrotoxins #.? Hypomagnesemia: Repleted #.? Elevated troponin, likely type 2 in the setting of increased demand Med rec pending DVT prophylaxis: On Lovenox 30mg daily Do not intubate Diet: Cardiac diet Admit as inpatient and will require two night minimum hospital stay for supplemental oxygen. Quality Stroke Does the patient have a stroke diagnosis?: No VTE Prior VTE?: No VTE Risk Level:: Medical - moderate - high VTE Device Contraindication: Treatment Not Indicated VTE Drug Contraindication: N/A - Med Ordered
--- NOTE | 2022-03-03 02:06 | PC.NURSE ---
Pt resting in bed VSS, NSR on monitor. Respirations even unlabored, 96% on 2L NC, not home O2 dependent. Awaiting bed assignment for admission. Aware of plan of care.
--- NOTE | 2022-03-03 02:57 | PC.NURSE ---
Unable to appropriately reconcile home meds- pt med list does not provide dosages or times. External med history only provides 3 meds.
--- NOTE | 2022-03-03 03:00 | PC.NURSE ---
Report given to Shubham BOLTON, pt exits my care in stable condition at this time.
[2022-03-03] MEDS: Enoxaparin Sodium 30 MG/0.3 ML SYRINGE SUBCUT (03:14)
[2022-03-03 03:38] LABS: Glucose, Whole Blood 281 mg/dL (60-115)
--- NOTE | 2022-03-03 05:08 | PC.NURSE ---
Pt sleeping at this time, respiration regular.
[2022-03-03 06:30] LABS: Basophils Percent Auto 0.3 % (0-2); Eosinophils Percent Auto 0.2 % (0-4); Hematocrit 33.4 % (37.0-47.0); Hemoglobin 10.8 g/dl (12.0-16.0); Imm Gran Abs Auto 0.05 X10*3/uL (0.00-0.03); Imm Gran Pct Auto 0.8 % (0.0-0.4); Lymphocytes Absolute Auto 0.2 X10*3/uL (1.2-4.9); Lymphocytes Percent Auto 3.7 % (20-40); MANUAL DIFF FLAG SCAN; Mean Corpuscular HGB Conc 32.3 g/dl (31.0-35.0); Mean Corpuscular Hemoglobin 25.7 pg (27.0-33.0); Mean Corpuscular Volume 79.3 fL (80.0-98.0); Mean Platelet Volume 12.8 fL (9.4-12.3); Monocytes Absolute Auto 0.1 X10*3/uL (0.1-1.2); Monocytes Percent Auto 1.1 % (2-11); Neutrophils Absolute Auto 6.1 x10*3/uL (2.0-8.3); Neutrophils Percent Auto 93.9 % (45-73); Platelet Count 144 X10*3/uL (160-400); Red Blood Count 4.21 X10*6/uL (4.20-5.50); Red Cell Distribution Width 14.7 % (11.0-16.0); SCAN SMEAR FLAG 1; White Blood Count 6.4 X10*3/uL (4.8-10.8)
[2022-03-03 06:44] LABS: Anion Gap 12 (12-20); Blood Urea Nitrogen 25 mg/dL (9-16); Calcium 8.3 mg/dL (8.4-10.2); Carbon Dioxide 25 mmol/L (22-29); Chloride 105 mmol/L (96-108); Creatinine Clr Calc Pharmacy 27.2; Estimated Glomerular Filt Rate 24; Glucose Random 344 mg/dL (60-115); Potassium 4.5 mmol/L (3.3-5.1); Sodium 137 mmol/L (135-145)
[2022-03-03 07:10] LABS: SLIDE REVIEW VERIFIED
[2022-03-03 07:59] LABS: Magnesium 1.9 mg/dL (1.6-2.6)
[2022-03-03 08:23] LABS: Procalcitonin 0.04 ng/mL
[2022-03-03 08:28] LABS: Glucose, Whole Blood 389 mg/dL (60-115)
[2022-03-03] MEDS: Insulin Lispro 100 UNIT/ML 3 ML VIAL SUBCUT (08:33)
[2022-03-03] MEDS: 0.9 % Sodium Chloride Flush 3 ML SYRINGE IVFLUSH (08:34)
--- NOTE | 2022-03-03 08:56 | MHC.CM.PN ---
PT ADMITTED + INFLUENZA CM ATTEMPTED TO CONTACT PT VIA T/C [phone] A VM MESSAGE WAS LEFT INFORMING HER OF HER MEDICARE RIGHTS AND THAT A COPY WOULD BE MAILED TO HER WELL PROVIDING CONTACT INFO FOR CM PER RECORDS, PT LIVES ALONE (HER LIVES IN A SEPARATE APARTMENT) AND IS INDEPENDENT WITH CARE PT USES A CPAP AND NO OTHER DME PCP IS ZARINA BENOIT HCP AND [facility]AX INFO UNKNOWN IMM DELIVERED VIA VM MESSAGE, ORIGINAL WILL BE MAILED TO HER HOME, COPY SENT TO MEDICAL RECORDS DC PLAN,. HOME WITH NO SERVICES FAMILY TO TRANSPORT
--- NOTE | 2022-03-03 09:21 | PHA.MEDREC ---
Pharmacy Consult ? Medication Reconciliation Pharmacy has completed the medication reconciliation. Patient was unsure of her medications and asked me to confirm them with her pharmacy. I got the information for her medication list from the [facility] in [place] and the only thing the patient confirmed was her dose on her insulin, which is currently 36 units lanus daily in the morning.
--- NOTE | 2022-03-03 09:59 | PM.EVENT ---
Event Note Date of Service: 03/03/22 Event Note: Day hospitalist update S: c/o dyspnea febrile to 100.5 last night generalized malaise O: Temperature 98.4 F 03/03/22 05:38 Pulse Rate 67 03/03/22 08:37 Respiratory Rate 16 03/03/22 08:37 Blood Pressure 156/67 H 03/03/22 08:37 Pulse Oximetry 95 03/03/22 08:37 Oxygen Delivery Method 03/03/22 08:37 Oxygen Flow Rate 2 03/03/22 05:38 Gen: ill-appearing HEENT: sclera anicteric, moist mucus membranes Neck: supple Lungs: soft expiratory wheezing Heart: regular rate and rhythm, no murmurs Abd: soft, non-tender, non-distended, obese Ext: no edema Skin: warm/well-perfused Neuro: alert and oriented x3, no focal findings Psych: appropriate affect A/P: hospital day#1 66yo F with asthma, HTN, DM2, HLD, GERD, insomnia, CKD3 presenting with dyspnea, admitted for hypoxia and asthma exacerbation due to influenza A # AHRF - supplemental O2, wean as tolerated # acute asthma exacerbation - steroids, nebulized bronchodilators # influenza A - oseltamivir d#04/02. no signs of bacterial superinfection at this point # DM2 with hyperglycemia - basal/bolus insulin # HTN - metoprolol + olmesartan # Tn-I elevation - flat; due to demand/CKD, not ACS # CKD3 - SCr at baseline; avoid nephrotoxins # insomnia - prn zolpidem + lorazepam as per home regimen # VTE ppx: LMWH # dispo: eventual home In my clinical judgment, the patient requires continued inpatient hospitalization for the following reasons: hypoxia
[2022-03-03] MEDS: Metoprolol Succinate ER 100 MG TAB.ER.24H PO (11:16)
[2022-03-03] MEDS: LORazepam 1 MG TABLET PO (11:16)
[2022-03-03] MEDS: Insulin Glargine,Hum.rec.anlog 100 UNIT/ML 10 ML VIAL 36 UNIT SUBCUT (12:44)
[2022-03-03 16:42] LABS: Glucose, Whole Blood 312 mg/dL (60-115)
--- NOTE | 2022-03-03 17:07 | PM.DS ---
DS: Providers Provider Date of Service: 03/03/22 Date of admission: 03/03/22 01:28 Date of discharge: 03/03/22 Primary care physician: Unknown Physician DS: Diagnosis Discharge Diagnosis (1) Influenza A: Status: Acute (2) Asthma exacerbation: Status: Acute (3) HTN (hypertension): Status: Acute (4) Diabetes: Status: Acute (5) Chronic kidney disease (CKD) stage G3b/A1, moderately decreased glomerular filtration rate (GFR) between 30-44 mL/min/1.73 square meter and albuminuria creatinine ratio less than 30 mg/g: Status: Acute DS: Summary Hospital Course Hospital Course: from admission history and physical by Ghislaine Zaman MD, 03/03/22: This is a 66-year-old female with pertinent history of asthma, essential hypertension, insulin-dependent diabetes mellitus, mixed hyperlipidemia, gastroesophageal reflux disease, insomnia, CKD stage 3 who presents to the emergency department for evaluation of dyspnea.? Patient states it started on the day of presentation.? Initially had upper respiratory symptoms.? She started having dyspnea, worse with exertion and wheezing.? Patient took her albuterol home inhaler without relief.? States grandson has similar symptoms with fever and cough.? Patient also developed fever and chills.? No chest discomfort, palpitations, abdominal pain, changes in urinary or bowel habits.? Does not use oxygen at home In the emergency department, patient was found to be hypoxemic and positive for influenza A 66yo F with asthma, HTN, DM2, HLD, GERD, insomnia, CKD3 presenting with dyspnea, admitted for hypoxia and asthma exacerbation due to influenza A. Hypoxia was transient and resolved rapidly. She was given steroids and nebulized bronchodilators and started on oseltamivir. No signs of bacterial superinfection. She was discharged home with prednisone and oseltamivir. Time Spent with Patient Time attestation: Total time spent providing and/or coordinating discharge services: 35 Discharge coordination time: Greater than 30 minutes Quality: Safe Use of Opioids Does Pt have an Active Cancer Diagnosis on the Problem List?: No Quality: Stroke Does the patient have a stroke diagnosis?: No Physical Exam Vital Signs: Vital Signs: Last Vital Signs Temp 98.5 F 03/03/22 16:36 Pulse 93 03/03/22 16:36 Resp 18 03/03/22 16:36 BP 129/74 03/03/22 16:36 Pulse Ox 93 03/03/22 16:36 O2 Del Method 03/03/22 16:36 O2 Flow Rate 2 03/03/22 05:38 BMI result Body Mass Index 33.8 Gen: in no acute distress HEENT: sclera anicteric, moist mucus membranes Neck: supple Lungs: clear to auscultation bilaterally Heart: regular rate and rhythm, no murmurs Abd: soft, non-tender, non-distended Ext: no edema Skin: warm/well-perfused Neuro: alert and oriented x3, no focal findings Psych: appropriate affect DS: Data Data Completed and Pending Completed studies during hospitalization [Text1]: Laboratory Results WBC 6.4 X10*3/uL (4.8-10.8) 03/03/22 06:18 RBC 4.21 X10*6/uL (4.20-5.50) 03/03/22 06:18 Hgb 10.8 g/dl (12.0-16.0) L 03/03/22 06:18 Hct 33.4 % (37.0-47.0) L 03/03/22 06:18 MCV 79.3 fL (80.0-98.0) L 03/03/22 06:18 MCH 25.7 pg (27.0-33.0) L 03/03/22 06:18 MCHC 32.3 g/dl (31.0-35.0) 03/03/22 06:18 RDW 14.7 % (11.0-16.0) 03/03/22 06:18 Plt Count 144 X10*3/uL (160-400) L 03/03/22 06:18 MPV 12.8 fL (9.4-12.3) H 03/03/22 06:18 Immature Gran % (Auto) 0.8 % (0.0-0.4) H 03/03/22 06:18 Neut % (Auto) 93.9 % (45-73) H 03/03/22 06:18 Lymph % (Auto) 3.7 % (20-40) L 03/03/22 06:18 Yell % (Auto) 1.1 % (2-11) L 03/03/22 06:18 Eos % (Auto) 0.2 % (0-4) 03/03/22 06:18 Baso % (Auto) 0.3 % (0-2) 03/03/22 06:18 Lymph # (Auto) 0.2 X10*3/uL (1.2-4.9) L 03/03/22 06:18 Yell # (Auto) 0.1 X10*3/uL (0.1-1.2) 03/03/22 06:18 Eos # (Auto) 0.0 X10*3/uL (0.0-0.4) 03/03/22 06:18 Baso # (Auto) 0.0 X10*3/uL (0.0-0.2) 03/03/22 06:18 Abs Immat Gran (auto) 0.05 X10*3/uL (0.00-0.03) H 03/03/22 06:18 Absolute Neuts (auto) 6.1 x10*3/uL (2.0-8.3) 03/03/22 06:18 Absolute Nucleated RBC 0.000 X10*3/uL (0.0-0.012) 03/03/22 06:18 Nucleated RBC % (auto) 0.0 /100WBC (0.0-0.2) 03/03/22 06:18 Smear Tech's Comments VERIFIED 03/03/22 06:18 Sodium 137 mmol/L (135-145) 03/03/22 06:18 Potassium 4.5 mmol/L (3.3-5.1) 03/03/22 06:18 Chloride 105 mmol/L (96-108) 03/03/22 06:18 Carbon Dioxide 25 mmol/L (22-29) 03/03/22 06:18 Anion Gap 12 (12-20) 03/03/22 06:18 BUN 25 mg/dL (9-16) H 03/03/22 06:18 Creatinine 2.04 mg/dL (0.5-1.4) H 03/03/22 06:18 Estim Creat Clear Calc 27.2 03/03/22 06:18 Estimated GFR 24 03/03/22 06:18 POC Glucose 312 mg/dL (60-115) H 03/03/22 16:39 Random Glucose 344 mg/dL (60-115) H 03/03/22 06:18 Calcium 8.3 mg/dL (8.4-10.2) L 03/03/22 06:18 Magnesium 1.9 mg/dL (1.6-2.6) 03/03/22 06:18 Total Bilirubin 0.2 mg/dL (0.0-1.0) 03/02/22 22:05 AST 16 U/L (5-31) 03/02/22 22:05 ALT 10 U/L (0-31) 03/02/22 22:05 Alkaline Phosphatase 89 U/L (39-117) 03/02/22 22:05 Troponin I High Sens 33.0 ng/L (<3.5-17.0) H 03/03/22 06:18 B-Natriuretic Peptide 201 pg/mL (<100) H 03/02/22 22:05 Total Protein 6.2 g/dL (6.5-8.0) L 03/02/22 22:05 Albumin 3.1 g/dL (3.5-5.0) L 03/02/22 22:05 Procalcitonin 0.04 ng/mL 03/03/22 06:18 Influenza Type A (PCR) POSITIVE (Negative) A 03/02/22 22:05 Influenza Type B (PCR) NEGATIVE (Negative) 03/02/22 22:05 RSV RNA Qual (PCR) NEGATIVE (Negative) 03/02/22 22:05 SARS-CoV-2 RNA (RT-PCR) NEGATIVE (Negative) 03/02/22 22:05 Impressions Chest X-Ray 03/02/22 22:11 IMPRESSION: Cardiomegaly. No acute intrathoracic disease. Discharge Plan Discharge Anticipated Discharge Date/Time: 03/03/22 16:58 Patient Disposition: Home, Self-Care Discharge Diagnosis: asthma exacerbation and hypoxia due to influenza A Referrals: Fatuma Sanchez MD [Physician] - 1 Week Discharge Medications: New ipratropium-albuterol 0.5 mg-3 mg(2.5 mg base)/3 mL Solution For Nebulization 3 ml inhalation RQ4H WHILE AWAKE Qty: 90 0RF ipratropium-albuterol 0.5 mg-3 mg(2.5 mg base)/3 mL Solution For Nebulization 3 ml inhalation RQ4H PRN (Reason: wheezing) Qty: 1 0RF oseltamivir 30 mg Capsule 30 mg PO Q24H Qty: 9 0RF prednisone 20 mg tablet 40 mg PO DAILY Qty: 10 0RF Continued metoprolol succinate 100 mg Tablet Extended Release 24 Hr 100 mg PO DAILY omeprazole 20 mg Tablet,Delayed Release (Dr/Ec) 20 mg PO DAILY@0630 magnesium 200 mg Tablet 200 mg PO DAILY insulin glargine [Lantus U-100 Insulin] 100 unit/mL solution 36 unit subcut QAM simvastatin 10 mg tablet 10 mg PO BEDTIME (DME) OneTouch Ultra Test Strip MISCELLANEOUS QID mirtazapine 45 mg tablet 45 mg PO BEDTIME (DME) insulin syringe-needle U-100 1 mL 31 gauge x 5/16 syringe subcut BID ergocalciferol (vitamin D2) 1,250 mcg (50,000 unit) capsule 1,250 mcg PO QWEEK lorazepam 1 mg tablet 1 mg PO BID PRN (Reason: Insomnia) zolpidem 10 mg tablet 10 mg PO BEDTIME PRN (Reason: insomnia) olmesartan 40 mg tablet 40 mg PO DAILY Hold Instructions: Resume on 02/18/21. hold until seen by pcp, repeat bmp,further use for pcp and nephro outpatiently. Discharge Orders: Discharge Order (Routine); Ordered 03/03/22 Ordered By: Samara Scott Diet: Diabetic diet Activity on Discharge: As tolerated Stand Alone Forms: Patient Portal Discharge page Care Plan Goals: recovery from influenza Health Concerns: asthma exacerbation and hypoxia due to influenza A Plan of Treatment: prednisone 40 mg daily x 5 days use nebulizer treatments oseltamivir 30 mg twice daily x 5 days Please follow up with your primary care doctor within 1 week. Return to the hospital if you experience recurrent or worsening symptoms. Assessment: See Discharge Summary.
== END 2022-03-03 18:49 | disposition home or self-care (01) | DRG 193 ==
LOC: HO.ED 23:54 → HO.EDOVER 03-03 01:32
PROVIDERS: Physician Assistant; Admitting Provider Student in an Organized Health Care Education/Training Program; Emergency Provider Emergency Medicine; PCP Internal Medicine; Visit Provider Family Medicine
DX: J10.1 Influenza due to other identified influenza virus with other respiratory manifestations (principal); J96.01 Acute respiratory failure with hypoxia; I24.8 Other forms of acute ischemic heart disease; J45.901 Unspecified asthma with (acute) exacerbation; I12.9 Hypertensive chronic kidney disease with stage 1 through stage 4 chronic kidney disease, or unspecified chronic kidney disease; N18.32 Chronic kidney disease, stage 3b; E78.5 Hyperlipidemia, unspecified; E83.42 Hypomagnesemia; G47.00 Insomnia, unspecified; K21.9 Gastro-esophageal reflux disease without esophagitis; E11.22 Type 2 diabetes mellitus with diabetic chronic kidney disease; Z20.822 Contact with and (suspected) exposure to COVID-19; Z87.891 Personal history of nicotine dependence; Z88.8 Allergy status to other drugs, medicaments and biological substances; Z79.4 Long term (current) use of insulin; Z79.899 Other long term (current) drug therapy
CPT/HCPCS: 0241U; 36415; 71046; 80048; 80053; 82947; 83735; 83880; 84145; 84484; 85025; 93005; 94640; 99285; J1650; J2930; J3475

== ENCOUNTER 2022-03-14 22:18 | Inpatient (IN) | payer OTHER, SELFPAY ==
--- NOTE | ~2022-03-14 | XR_ITS ---
EXAMINATION: XR CHEST CLINICAL INFORMATION: Shortness of breath COMPARISON: 03/14/2022 TECHNIQUE: Frontal view of the chest was obtained. FINDINGS: New/significantly worsened multifocal airspace opacity. Pulmonary vascularity is prominent and indistinct. No pleural effusion. Cardiomediastinal silhouette unchanged. XR/XR chest 1V IMPRESSION: New/significantly worsened multifocal airspace opacity most likely multifocal pneumonia. Prominent pulmonary vascularity likely pulmonary venous hypertension.
--- NOTE | ~2022-03-14 | XR_ITS ---
EXAMINATION: PORTABLE CHEST 1 VIEW CLINICAL INFORMATION: cough, sob, asthma . COMPARISON: 03/02/2022. TECHNIQUE: Portable frontal view of the chest was obtained. FINDINGS: The lungs are well expanded. Mild central vascular prominence increase in the prior study. There is peribronchial cuffing as well. No significant effusion or pneumothorax. Cardiac silhouette remains enlarged with vascular calcification in aorta. No acute bony abnormality. XR/XR chest 1V IMPRESSION: Enlarged cardiac silhouette with central vascular prominence and peribronchial cuffing. These findings are new from the prior study and could reflect component of mild pulmonary edema in the acute setting.
--- NOTE | 2022-03-14 22:29 | ECG_ITS ---
Test Reason : DESPENA Blood Pressure : / mmHG Vent. Rate : 088 BPM Atrial Rate : 088 BPM P-R Int : 164 ms QRS Dur : 102 ms QT Int : 372 ms P-R-T Axes : 054 068 194 degrees QTc Int : 450 ms Normal sinus rhythm Minimal voltage criteria for LVH, may be normal variant ( Ben Bolt product ) Nonspecific T wave abnormality Abnormal ECG When compared with ECG of 02-MAR-2022 23:47, No significant change was found Referred By: Phyllis Ramos Electronically Signed By:DM YOUNG
--- NOTE | 2022-03-14 22:35 | ED.SOB ---
HPI - SOB/Dyspnea General Chief Complaint: Dyspnea Stated Complaint: SOB Time Seen by Provider: 03/14/22 22:26 Source: patient and EMS Mode of arrival: EMS Limitations: no limitations History of Present Illness HPI Narrative: Patient comes emergency room complaining of an exacerbation. Patient states she has history of asthma and has been in the hospital at the beginning of the month with similar symptoms. Patient denies chest pain. EMS gave her 1 DuoNeb and started feeling better. No other medications were given. Patient does not use oxygen at home. Related Data Home Medications Medication Instructions Recorded Confirmed blood sugar diagnostic (OneTouch 02/08/21 02/08/21 Ultra Test strips) ergocalciferol (vitamin D2) 1,250 1,250 mcg PO QWEEK 02/08/21 03/03/22 mcg (50,000 unit) capsule insulin glargine 100 unit/mL 36 unit subcut QAM 02/08/21 03/03/22 subcutaneous solution (Lantus U-100 Insulin) insulin syringe-needle U-100 1 mL 02/08/21 02/08/21 31 gauge x 08/11 lorazepam 1 mg tablet 1 mg PO BID PRN Insomnia 02/08/21 03/03/22 mirtazapine 45 mg tablet 45 mg PO BEDTIME 02/08/21 03/03/22 olmesartan 40 mg tablet 40 mg PO DAILY 02/08/21 03/03/22 simvastatin 10 mg tablet 10 mg PO BEDTIME 02/08/21 03/03/22 zolpidem 10 mg tablet 10 mg PO BEDTIME PRN insomnia 02/08/21 03/03/22 magnesium 200 mg tablet 200 mg PO DAILY 03/03/22 03/03/22 metoprolol succinate 100 mg 100 mg PO DAILY 03/03/22 03/03/22 tablet,extended release 24 hr omeprazole 20 mg tablet,delayed 20 mg PO DAILY@0630 03/03/22 03/03/22 release Previous Rx's Medication Instructions Recorded ipratropium 0.5 mg-albuterol 3 mg 3 ml inhalation RQ4H PRN wheezing 03/03/22 (2.5 mg base)/3 mL nebulization #1 mL soln ipratropium 0.5 mg-albuterol 3 mg 3 ml inhalation RQ4H WHILE AWAKE 03/03/22 (2.5 mg base)/3 mL nebulization #90 mL soln oseltamivir 30 mg capsule 30 mg PO Q24H #9 caps 03/03/22 prednisone 20 mg tablet 40 mg PO DAILY #10 tabs 03/03/22 Allergies Allergy/AdvReac Type Severity Reaction Status Date / Time lisinopril [From ZESTRIL] Allergy Intermediate CHOKING Verified 02/08/21 05:30 amlodipine Allergy Unknown Verified 02/08/21 05:30 Review of Systems Review of Systems: Constitutional : No Weight loss, No Fever, No Chills, No Night Sweats, No Fatigue, No Malaise ENT/Mouth : No Hearing loss, No Ear Pain, No Nasal Congestion, No Sinus Pain, No Hoarseness, No sore throat, No Rhinorrhea, No Swallowing Difficulty Eyes: No Eye Pain, No Swelling, No Redness, No Foreign Body, No Discharge, No Vision Changes Cardiovascular : No Chest Pain, No SOB, No Dyspnea on Exertion, No Orthopnea, No Edema, No Palpitations Respiratory : Complaining of cough and wheezing Gastrointestinal : No Nausea, No Vomiting, No Diarrhea, No Constipation, No abdominal Pain, No Hematochezia, No Melena Genitourinary : no irregular bleeding, No Dysuria, No Urinary Frequency, No Hematuria, No Urinary Incontinence, No Urgency, No Flank Pain, No Urinary Flow Changes, No Hesitancy Musculoskeletal : No joint pain, No Myalgias, No Joint Swelling Skin : No Skin Lesions, No rash Neuro : No Weakness, No Numbness, No Paresthesias, No Loss of Consciousness, No Dizziness, No Headache Psych : No Anxiety/Panic, No Depression, No SI/HI/AH/VH, No Social Issues, Heme/Lymph: No Bruising, No Bleeding,No Lymphadenopathy Endocrine : No Polyuria, No Polydipsia, No Temperature Intolerance [facility] Past Medical History Medical History Asthma Chronic kidney disease (CKD) stage G3b/A1, moderately decreased glomerular filtration rate (GFR) between 30-44 mL/min/1.73 square meter and albuminuria creatinine ratio less than 30 mg/g Diabetes Diabetes HTN (hypertension) Social History Social History Household Members: None Housing: House Do you presently have visiting nurse or other home services: No Alcohol intake: never Patient Tobacco Use Status: Former Tobacco user Advance Directives: No Advance Directives Information Provided: No service: No Current occupational status: unemployed Physical Exam Vital Signs: Vital Signs: Last Vital Signs Temp 98.4 F 03/14/22 23:43 Pulse 84 03/14/22 23:43 Resp 20 03/14/22 23:43 BP 137/64 03/14/22 23:43 Pulse Ox 96 03/14/22 23:43 O2 Del Method 03/14/22 23:43 O2 Flow Rate 2 03/14/22 23:43 Oxygen Flow Rate 2 03/14/22 22:37 BMI result Body Mass Index 38.0 Course Course Course Narrative: Patient receiving albuterol, magnesium, Solu-Medrol. Patient's labs and imaging pending. Due to patient's history of chronic lung disease, we will empirically treat with antibiotics, at this time, sepsis is not suspected. All of patient's symptoms likely secondary to new onset CHF. This time, patient is breathing fairly comfortable, we will not be given Lasix, patient has history of chronic kidney disease. Troponin is likely elevated, patient's BNP is elevated, patient is not having any chest pain, EKG is not concerning for acute abnormalities/ACS Medications Administered Discontinued Medications Generic Name Dose Route Start Last Admin Trade Name Donovanq PRN Reason Stop Dose Admin Albuterol Sulfate 10 mg 03/14/22 22:26 03/14/22 23:11 Albuterol Sulfate (0.083%) 2.5 Mg/3 Ml Vial.Neb INHALE 03/14/22 22:27 10 mg ONCE ONE Administration Magnesium Sulfate 2 gm in 50 mls @ 25 mls/hr 03/14/22 22:26 03/14/22 22:54 Magnesium Sulfate/H2o IV 03/15/22 00:25 25 mls/hr ONCE ONE Administration Sodium Chloride 1,000 mls @ 999 mls/hr 03/14/22 22:50 03/14/22 23:21 Ns IVCONT 03/14/22 23:50 999 mls/hr .Q1H1M ONE Administration Insulin Human Regular 10 unit 03/14/22 22:50 03/14/22 23:31 Insulin Regular, Human 100 Unit/Ml 3 Ml Vial IVPUSH 03/14/22 22:51 Not Given ONCE ONE Methylprednisolone Sodium Succinate 125 mg 03/14/22 22:26 03/14/22 22:54 Methylprednisolone Sod Succ 125 Mg/2 Ml Vial IVPUSH 03/14/22 22:27 125 mg ONCE ONE Administration Medical Decision Making Differential Diagnosis Differential Diagnoses: The differential diagnosis associated with the presentation includes (Pneumonia, COPD, influenza, RSV, CHF) Admission/Observation Consideration of admission/observation: Escalation of care including admission/observation considered (Patient has new onset CHF on top of chronic lung disease. Will go ahead and admit the patient) Consult Healthcare Provider Management of the patient was discussed with: Hospitalist Patient being admitted for new onset CHF Lab Data MDM Lab Attestation statement: I reviewed the patient's lab results. Result Diagrams: 03/15/22 00:01 03/15/22 00:01 Labs: Lab Results 03/14/22 03/15/22 03/15/22 Range/Units 23:04 00:00 00:01 WBC 8.1 (4.8-10.8) X10*3/uL RBC 3.65 L (4.20-5.50) X10*6/uL Hgb 9.2 L (12.0-16.0) g/dl Hct 29.9 L (37.0-47.0) % MCV 81.9 (80.0-98.0) fL MCH 25.2 L (27.0-33.0) pg MCHC 30.8 L (31.0-35.0) g/dl RDW 15.5 (11.0-16.0) % Plt Count 144 L (160-400) X10*3/uL MPV 11.2 (9.4-12.3) fL Immature Gran % (Auto) 0.9 H (0.0-0.4) % Neut % (Auto) 85.8 H (45-73) % Lymph % (Auto) 6.3 L (20-40) % [place] % (Auto) 5.5 (2-11) % Eos % (Auto) 1.4 (0-4) % Baso % (Auto) 0.1 (0-2) % Lymph # (Auto) 0.5 L (1.2-4.9) X10*3/uL [place] # (Auto) 0.5 (0.1-1.2) X10*3/uL Eos # (Auto) 0.1 (0.0-0.4) X10*3/uL Baso # (Auto) 0.0 (0.0-0.2) X10*3/uL Abs Immat Gran (auto) 0.07 H (0.00-0.03) X10*3/uL Absolute Neuts (auto) 7.0 (2.0-8.3) x10*3/uL Absolute Nucleated RBC 0.000 (0.0-0.012) X10*3/uL Nucleated RBC % (auto) 0.0 (0.0-0.2) /100WBC PT (10.0-13.1) SEC INR (0.9-1.1) Sodium (135-145) mmol/L Potassium (3.3-5.1) mmol/L Chloride (96-108) mmol/L Carbon Dioxide (22-29) mmol/L Anion Gap (12-20) BUN (9-16) mg/dL Creatinine (0.5-1.4) mg/dL Estim Creat Clear Calc Estimated GFR POC Glucose 293 H (60-115) mg/dL Random Glucose (60-115) mg/dL Lactic Acid 1.4 (0.5-2.0) mmol/L Calcium (8.4-10.2) mg/dL Direct Bilirubin (0.0-0.5) mg/dL AST (5-31) U/L ALT (0-31) U/L Alkaline Phosphatase (39-117) U/L Troponin I High Sens (<3.5-17.0) ng/L B-Natriuretic Peptide (<100) pg/mL Total Protein (6.5-8.0) g/dL Albumin (3.5-5.0) g/dL 03/15/22 03/15/22 03/15/22 Range/Units 00:01 00:01 00:01 WBC (4.8-10.8) X10*3/uL RBC (4.20-5.50) X10*6/uL Hgb (12.0-16.0) g/dl Hct (37.0-47.0) % MCV (80.0-98.0) fL MCH (27.0-33.0) pg MCHC (31.0-35.0) g/dl RDW (11.0-16.0) % Plt Count (160-400) X10*3/uL MPV (9.4-12.3) fL Immature Gran % (Auto) (0.0-0.4) % Neut % (Auto) (45-73) % Lymph % (Auto) (20-40) % [place] % (Auto) (2-11) % Eos % (Auto) (0-4) % Baso % (Auto) (0-2) % Lymph # (Auto) (1.2-4.9) X10*3/uL [place] # (Auto) (0.1-1.2) X10*3/uL Eos # (Auto) (0.0-0.4) X10*3/uL Baso # (Auto) (0.0-0.2) X10*3/uL Abs Immat Gran (auto) (0.00-0.03) X10*3/uL Absolute Neuts (auto) (2.0-8.3) x10*3/uL Absolute Nucleated RBC (0.0-0.012) X10*3/uL Nucleated RBC % (auto) (0.0-0.2) /100WBC PT 11.4 (10.0-13.1) SEC INR 1.0 (0.9-1.1) Sodium 136 (135-145) mmol/L Potassium 3.8 (3.3-5.1) mmol/L Chloride 103 (96-108) mmol/L Carbon Dioxide 25 (22-29) mmol/L Anion Gap 12 (12-20) BUN 22 H (9-16) mg/dL Creatinine 1.92 H (0.5-1.4) mg/dL Estim Creat Clear Calc 29.7 Estimated GFR 26 POC Glucose (60-115) mg/dL Random Glucose 288 H (60-115) mg/dL Lactic Acid (0.5-2.0) mmol/L Calcium 7.5 L D (8.4-10.2) mg/dL Direct Bilirubin < 0.2 (0.0-0.5) mg/dL AST 15 (5-31) U/L ALT 16 (0-31) U/L Alkaline Phosphatase 82 (39-117) U/L Troponin I High Sens 62.2 H* (<3.5-17.0) ng/L B-Natriuretic Peptide (<100) pg/mL Total Protein 5.0 L (6.5-8.0) g/dL Albumin 2.7 L (3.5-5.0) g/dL 03/15/22 Range/Units 00:01 WBC (4.8-10.8) X10*3/uL RBC (4.20-5.50) X10*6/uL Hgb (12.0-16.0) g/dl Hct (37.0-47.0) % MCV (80.0-98.0) fL MCH (27.0-33.0) pg MCHC (31.0-35.0) g/dl RDW (11.0-16.0) % Plt Count (160-400) X10*3/uL MPV (9.4-12.3) fL Immature Gran % (Auto) (0.0-0.4) % Neut % (Auto) (45-73) % Lymph % (Auto) (20-40) % [place] % (Auto) (2-11) % Eos % (Auto) (0-4) % Baso % (Auto) (0-2) % Lymph # (Auto) (1.2-4.9) X10*3/uL [place] # (Auto) (0.1-1.2) X10*3/uL Eos # (Auto) (0.0-0.4) X10*3/uL Baso # (Auto) (0.0-0.2) X10*3/uL Abs Immat Gran (auto) (0.00-0.03) X10*3/uL Absolute Neuts (auto) (2.0-8.3) x10*3/uL Absolute Nucleated RBC (0.0-0.012) X10*3/uL Nucleated RBC % (auto) (0.0-0.2) /100WBC PT (10.0-13.1) SEC INR (0.9-1.1) Sodium (135-145) mmol/L Potassium (3.3-5.1) mmol/L Chloride (96-108) mmol/L Carbon Dioxide (22-29) mmol/L Anion Gap (12-20) BUN (9-16) mg/dL Creatinine (0.5-1.4) mg/dL Estim Creat Clear Calc Estimated GFR POC Glucose (60-115) mg/dL Random Glucose (60-115) mg/dL Lactic Acid (0.5-2.0) mmol/L Calcium (8.4-10.2) mg/dL Direct Bilirubin (0.0-0.5) mg/dL AST (5-31) U/L ALT (0-31) U/L Alkaline Phosphatase (39-117) U/L Troponin I High Sens (<3.5-17.0) ng/L B-Natriuretic Peptide 223 H (<100) pg/mL Total Protein (6.5-8.0) g/dL Albumin (3.5-5.0) g/dL Independent Interpretation I performed an independent interpretation of an: Plain X-Ray Interpretation: My interpretation of the chest x-ray, cardiomegaly, mild CHF, worse in the bases Radiology Impression Discussion of test interpretation with radiology: I have reviewed the radiologist's reading. Radiologist Impression: FINDINGS: The lungs are well expanded. Mild central vascular prominence increase in the prior study. There is peribronchial cuffing as well. No significant effusion or pneumothorax. Cardiac silhouette remains enlarged with vascular calcification in aorta. No acute bony abnormality. XR/XR chest 1V IMPRESSION: Enlarged cardiac silhouette with central vascular prominence and peribronchial cuffing. These findings are new from the prior study and could reflect component of mild pulmonary edema in the acute setting. Critical Care Time Critical Care Time Critical Care Time: Yes Total Critical Care Time: 60 Attestation: I have personally provided critical care time. Time includes review of lab data, radiology results, discussion with consultants, and monitoring for potential decompensation. Intervention performed as documented. Discharge Plan Discharge Clinical Impression: Asthma, New onset of congestive heart failure Patient Disposition: Admitted As Inpatient Prescriptions: No Action metoprolol succinate 100 mg Tablet Extended Release 24 Hr 100 mg PO DAILY omeprazole 20 mg Tablet,Delayed Release (Dr/Ec) 20 mg PO DAILY@0630 magnesium 200 mg Tablet 200 mg PO DAILY ipratropium-albuterol 0.5 mg-3 mg(2.5 mg base)/3 mL Solution For Nebulization 3 ml inhalation RQ4H WHILE AWAKE Qty: 90 0RF ipratropium-albuterol 0.5 mg-3 mg(2.5 mg base)/3 mL Solution For Nebulization 3 ml inhalation RQ4H PRN (Reason: wheezing) Qty: 1 0RF oseltamivir 30 mg Capsule 30 mg PO Q24H Qty: 9 0RF prednisone 20 mg tablet 40 mg PO DAILY Qty: 10 0RF insulin glargine [Lantus U-100 Insulin] 100 unit/mL solution 36 unit subcut QAM simvastatin 10 mg tablet 10 mg PO BEDTIME (DME) OneTouch Ultra Test Strip MISCELLANEOUS QID mirtazapine 45 mg tablet 45 mg PO BEDTIME (DME) insulin syringe-needle U-100 1 mL 31 gauge x 5/16 syringe subcut BID ergocalciferol (vitamin D2) 1,250 mcg (50,000 unit) capsule 1,250 mcg PO QWEEK lorazepam 1 mg tablet 1 mg PO BID PRN (Reason: Insomnia) zolpidem 10 mg tablet 10 mg PO BEDTIME PRN (Reason: insomnia) olmesartan 40 mg tablet 40 mg PO DAILY Hold Instructions: Resume on 02/18/21. hold until seen by pcp, repeat bmp,further use for pcp and nephro outpatiently.
[2022-03-14 22:37] VITALS: BP 145/70; BP 157/58; PULSE 83; PULSE 88; RESP 28; TEMP 36.9; O2SAT 92; O2SAT 98; BMI 38.0
[2022-03-14] MEDS: methylPREDNISolone Sod Succ 125 MG/2 ML VIAL IVPUSH (22:54)
[2022-03-14] MEDS: Magnesium Sulfate/H2O 2 GM/50 ML PIGGYBACK IV (22:54)
[2022-03-14 23:08] LABS: Glucose, Whole Blood 293 mg/dL (60-115)
[2022-03-14 23:11] VITALS: PULSE 84; RESP 18; O2SAT 94
[2022-03-14] MEDS: Albuterol Sulfate (0.083%) 2.5 MG/3 ML VIAL.NEB 10 MG INHALE (23:11)
[2022-03-14] MEDS: 0.9 % Sodium Chloride 1,000 ML 999 ML IVCONT (23:21)
[2022-03-14 23:43] VITALS: BP 137/64; PULSE 84; RESP 20; TEMP 36.9; O2SAT 96
--- NOTE | 2022-03-14 23:44 | MHC.EDTECH ---
pt was hooked up to patient monitor ,ekg vitals and lab drawn and pt change into hospital attire by this pct .
[2022-03-15] VITALS (10 sets, daily range): BP systolic 130–159; BP diastolic 62–68; PULSE 72–85; RESP 16–20; TEMP 36.4–37.3; O2SAT 88–97
[2022-03-15 00:07] LABS: MANUAL DIFF FLAG NO
[2022-03-15 00:09] LABS: Basophils Percent Auto 0.1 % (0-2); Eosinophils Absolute Auto 0.1 X10*3/uL (0.0-0.4); Eosinophils Percent Auto 1.4 % (0-4); Hematocrit 29.9 % (37.0-47.0); Hemoglobin 9.2 g/dl (12.0-16.0); Imm Gran Abs Auto 0.07 X10*3/uL (0.00-0.03); Imm Gran Pct Auto 0.9 % (0.0-0.4); Lymphocytes Absolute Auto 0.5 X10*3/uL (1.2-4.9); Lymphocytes Percent Auto 6.3 % (20-40); Mean Corpuscular HGB Conc 30.8 g/dl (31.0-35.0); Mean Corpuscular Hemoglobin 25.2 pg (27.0-33.0); Mean Corpuscular Volume 81.9 fL (80.0-98.0); Mean Platelet Volume 11.2 fL (9.4-12.3); Monocytes Absolute Auto 0.5 X10*3/uL (0.1-1.2); Monocytes Percent Auto 5.5 % (2-11); Neutrophils Percent Auto 85.8 % (45-73); Platelet Count 144 X10*3/uL (160-400); Red Blood Count 3.65 X10*6/uL (4.20-5.50); Red Cell Distribution Width 15.5 % (11.0-16.0); White Blood Count 8.1 X10*3/uL (4.8-10.8)
[2022-03-15 00:15] LABS: Prothrombin Time 11.4 SEC (10.0-13.1)
[2022-03-15 00:27] LABS: Lactic Acid 1.4 mmol/L (0.5-2.0)
[2022-03-15 00:31] LABS: B Type Natriuretic Peptide 223 pg/mL (<100)
[2022-03-15 00:35] LABS: Alanine Aminotransferase 16 U/L (0-31); Albumin Level 2.7 g/dL (3.5-5.0); Alkaline Phosphatase 82 U/L (39-117); Anion Gap 12 (12-20); Aspartate Amino Transferase 15 U/L (5-31); Bilirubin Direct < 0.2 mg/dL (0.0-0.5); Blood Urea Nitrogen 22 mg/dL (9-16); Calcium 7.5 mg/dL (8.4-10.2); Carbon Dioxide 25 mmol/L (22-29); Chloride 103 mmol/L (96-108); Creatinine Clr Calc Pharmacy 29.7; Estimated Glomerular Filt Rate 26; Glucose Random 288 mg/dL (60-115); Potassium 3.8 mmol/L (3.3-5.1); Sodium 136 mmol/L (135-145)
[2022-03-15 00:40] LABS: Troponin-I High Sensitivity 62.2 ng/L (<3.5-17.0)
--- NOTE | 2022-03-15 00:47 | PC.NURSE ---
Established care of pt. at about 2245. Pt. having SOB and audible wheezing at this time. Pt. very uncomfortable and having a hard time moving around with any exertion. Pt. denied chest pain but stated discomfort over difficulty breathing. Pt. medicated per MAY and respiratory was called in to do a breathing treatment.
[2022-03-15 00:54] LABS: Influenza A PCR NEGATIVE (Negative); Influenza B PCR NEGATIVE (Negative); Resp Syncy Virus RNA Qual PCR NEGATIVE (Negative); SARS COV2 PCR INHOUSE POSITIVE (Negative)
[2022-03-15 00:55] LABS: Bilirubin Total 0.2 mg/dL (0.0-1.0)
--- NOTE | 2022-03-15 01:08 | PC.NURSE ---
Trialed pt. w/o oxygen...sats dropped to 88. Rebounded up to 95 when 2 L O2 applied. Audible wheezing heard at times, auscultated wheezing with high pitched wheezes on expiration.
[2022-03-15 01:09] LABS: Venous Blood Gas Refer to POC result
[2022-03-15 01:11] LABS: VBG HCO3 28 mmol/L (22-26); VBG pCO2 45 mmHg; VBG pH 7.39 (7.32-7.43); VBG pO2 57 mmHg
[2022-03-15] MEDS: cefTRIAXone sodium 1 GM in 0.9 % Sodium Chloride 50 ML IV (01:12)
[2022-03-15] MEDS: Azithromycin 500 MG in 0.9 % Sodium Chloride 250 ML 125 MG IV (01:12)
--- NOTE | 2022-03-15 01:38 | P.HPHOSP_ITS ---
History of Present Illness Date of Service: 03/15/22 Chief Complaint: sob 66-year-old female with past medical history of COPD/ asthma, CKD, diabetes, hypertension presents to the hospital with complaints of difficulty breathing. of note patient was discharged from the hospital on 03/03 after being treated for asthma exacerbation secondary to influenza A. Reports that after discharge she was still having difficulty with breathing but her symptoms worsened about 3 days ago. Where she has increased difficulty breathing, sputum production, cough, as well as chills. Patient reports that she has significant wheezing. She denies having any chest pain, no abdominal pain, no nausea or vomiting, no diarrhea constipation, no urinary symptoms. Patient is also complaining of orthopnea, PND, as well as lower extremity edema. On arrival to the ED patient found to have a hypoxia satting 88% on room air. Labs are significant for WBC count of 8.1, hemoglobin of 9.2, hematocrit 29.9, creatinine of 1.92 which is around her baseline, troponin of 62.2, BNP of 223, COVID-19 positive. Chest x-ray shows enlarged cardiac silhouette with central vascular prominence and peribronchial cuffing. These findings are new from the prior study and could reflect component mild pulmonary edema Review of Systems Review of Systems: Yes all other systems are reviewed and are negative [facility] Medical History Asthma Chronic kidney disease (CKD) stage G3b/A1, moderately decreased glomerular filtration rate (GFR) between 30-44 mL/min/1.73 square meter and albuminuria creatinine ratio less than 30 mg/g Diabetes Diabetes HTN (hypertension) Family History (Updated 03/15/22 @ 06:08 by Vesna Duncan MD) Other No family history of coronary artery disease Social History Household Members: Significant Other Housing: Apartment Do you presently have visiting nurse or other home services: No Alcohol intake: never Patient Tobacco Use Status: Current everyday Tobacco user Tobacco use type: Cigarette Smoked in Last 30 Days: Yes Patient Interested in Nicotine Replacement: No Patient Given Instructions on How to Stop Smoking: Yes Date Education Initiated: 03/15/22 Second Hand Smoke Exposure: No Use of substances other than those prescribed or required for medical reasons: No Currently Displaying Signs/Symptoms of Drug Intoxication Withdrawal: No Any prior treatment program specific to substance use: No Have you been hit, kicked, punched, or otherwise hurt by someone within the past year? If so, by whom?: No Do you feel safe in your current relationship?: Yes Is there a partner from a previous relationship who is making you feel unsafe now?: No Are you made to feel afraid or neglected: No Advance Directives: No Advance Directives Information Provided: No Advance Directives on File: No Do you have thoughts of harming others: None Do you have a plan to hurt others: No Plan Recently lost weight without trying: No Eating poorly because of decreased appetite: No Nutrition Risks: No Nutritional Risk Patient : No : No Poor oral hygiene: No service: No Current occupational status: unemployed Meds Allergies Allergy/AdvReac Type Severity Reaction Status Date / Time lisinopril [From ZESTRIL] Allergy Intermediate CHOKING Verified 02/08/21 05:30 amlodipine Allergy Unknown Verified 02/08/21 05:30 Active Medications: Current Medications Azithromycin 500 mg/ Sodium (Chloride) 250 mls @ 125 mls/hr IV ONCE ONE Stop: 03/15/22 02:47 Last Admin: 03/15/22 01:12 Dose: 125 mls/hr Home Medications Medication Instructions Recorded Confirmed Last Taken Type blood sugar diagnostic (OneTouch 02/08/21 03/15/22 Unknown History Ultra Test strips) ergocalciferol (vitamin D2) 1,250 1,250 mcg PO QWEEK 02/08/21 03/15/22 03/01/22 History mcg (50,000 unit) capsule insulin glargine 100 unit/mL 36 unit subcut QAM 02/08/21 03/15/22 03/01/22 History subcutaneous solution (Lantus U-100 Insulin) insulin syringe-needle U-100 1 mL 02/08/21 03/15/22 Unknown History 31 gauge x 5/16 lorazepam 1 mg tablet 1 mg PO BID PRN Insomnia 02/08/21 03/15/22 03/01/22 History mirtazapine 45 mg tablet 45 mg PO BEDTIME 02/08/21 03/15/22 03/01/22 History olmesartan 40 mg tablet 40 mg PO DAILY 02/08/21 03/15/22 03/01/22 History simvastatin 10 mg tablet 10 mg PO BEDTIME 02/08/21 03/15/22 03/01/22 History zolpidem 10 mg tablet 10 mg PO BEDTIME PRN insomnia 02/08/21 03/15/22 03/01/22 History metoprolol succinate 100 mg 100 mg PO DAILY 03/03/22 03/15/22 03/01/22 History tablet,extended release 24 hr omeprazole 20 mg tablet,delayed 20 mg PO DAILY@0630 03/03/22 03/15/22 03/01/22 History release fluticasone propionate 220 2 puff inhalation BID 03/15/22 03/15/22 Unknown History mcg/actuation HFA aerosol inhaler (Flovent HFA) pen needle, diabetic 31 gauge x 03/15/22 03/15/22 Unknown History 06/11 (BD Ultra-Fine Mini Pen Needle) Physical Exam Vital Signs and Narrative: Vital Signs: Last Vital Signs Temp 98.4 F 03/14/22 23:43 Pulse 85 03/15/22 01:19 Resp 19 03/15/22 01:19 BP 134/62 03/15/22 01:19 Pulse Ox 88 L 03/15/22 01:19 O2 Del Method 03/15/22 01:19 O2 Flow Rate 2 03/14/22 23:43 Oxygen Flow Rate 2 03/14/22 22:37 BMI result Body Mass Index 38.0 Const: Other: patient somnolent but arousable, answers questions appropriately General: cooperative and no acute distress Eyes: General: appearance normal, both eyes and all related structures Resp: Other: significant auditory wheezing, crackles bilaterally Effort & Inspection: normal respiratory effort Cardio: Rate: regular rate Rhythm: regular rhythm GI: Palpation (GI): Soft to palpation Auscultation: normal bowel sounds Skin: General skin exam: no rashes or lesions noted Neuro: Cognition (Neuro): normal cognition Extrem: Other: no lower extremity edema noted General: Yes normal to inspection and Yes no pedal edema Results Labs CBC and Chem 7: 03/15/22 00:01 03/15/22 00:01 Labs: Laboratory Results - last 24 hr 03/14/22 03/15/22 03/15/22 23:04 00:00 00:01 MCV 81.9 MCH 25.2 L MCHC 30.8 L RDW 15.5 Plt Count 144 L MPV 11.2 Immature Gran % (Auto) 0.9 H Neut % (Auto) 85.8 H Lymph % (Auto) 6.3 L Travis % (Auto) 5.5 Eos % (Auto) 1.4 Baso % (Auto) 0.1 Lymph # (Auto) 0.5 L Travis # (Auto) 0.5 Eos # (Auto) 0.1 Baso # (Auto) 0.0 Abs Immat Gran (auto) 0.07 H Absolute Neuts (auto) 7.0 Absolute Nucleated RBC 0.000 Nucleated RBC % (auto) 0.0 PT INR VBG pH VBG pCO2 VBG pO2 VBG HCO3 VBG O2 Saturation VBG Base Excess Anion Gap Estim Creat Clear Calc Estimated GFR POC Glucose 293 H Random Glucose Lactic Acid 1.4 Calcium Total Bilirubin Direct Bilirubin AST ALT Alkaline Phosphatase Troponin I High Sens B-Natriuretic Peptide Total Protein Albumin Influenza Type A (PCR) Influenza Type B (PCR) RSV RNA Qual (PCR) SARS-CoV-2 RNA (RT-PCR) 03/15/22 03/15/22 03/15/22 00:01 00:01 00:01 MCV MCH MCHC RDW Plt Count MPV Immature Gran % (Auto) Neut % (Auto) Lymph % (Auto) Travis % (Auto) Eos % (Auto) Baso % (Auto) Lymph # (Auto) Travis # (Auto) Eos # (Auto) Baso # (Auto) Abs Immat Gran (auto) Absolute Neuts (auto) Absolute Nucleated RBC Nucleated RBC % (auto) PT 11.4 INR 1.0 VBG pH VBG pCO2 VBG pO2 VBG HCO3 VBG O2 Saturation VBG Base Excess Anion Gap 12 Estim Creat Clear Calc 29.7 Estimated GFR 26 POC Glucose Random Glucose 288 H Lactic Acid Calcium 7.5 L D Total Bilirubin 0.2 Direct Bilirubin < 0.2 AST 15 ALT 16 Alkaline Phosphatase 82 Troponin I High Sens 62.2 H* B-Natriuretic Peptide Total Protein 5.0 L Albumin 2.7 L Influenza Type A (PCR) Influenza Type B (PCR) RSV RNA Qual (PCR) SARS-CoV-2 RNA (RT-PCR) 03/15/22 03/15/22 03/15/22 00:01 00:01 01:04 MCV MCH MCHC RDW Plt Count MPV Immature Gran % (Auto) Neut % (Auto) Lymph % (Auto) Travis % (Auto) Eos % (Auto) Baso % (Auto) Lymph # (Auto) Travis # (Auto) Eos # (Auto) Baso # (Auto) Abs Immat Gran (auto) Absolute Neuts (auto) Absolute Nucleated RBC Nucleated RBC % (auto) PT INR VBG pH 7.39 VBG pCO2 45 VBG pO2 57 VBG HCO3 28 H VBG O2 Saturation 86.0 VBG Base Excess 3.0 Anion Gap Estim Creat Clear Calc Estimated GFR POC Glucose Random Glucose Lactic Acid Calcium Total Bilirubin Direct Bilirubin AST ALT Alkaline Phosphatase Troponin I High Sens B-Natriuretic Peptide 223 H Total Protein Albumin Influenza Type A (PCR) NEGATIVE Influenza Type B (PCR) NEGATIVE RSV RNA Qual (PCR) NEGATIVE SARS-CoV-2 RNA (RT-PCR) POSITIVE A Imaging Radiologist's Impressions: Impressions Chest X-Ray 03/14/22 22:55 IMPRESSION: Enlarged cardiac silhouette with central vascular prominence and peribronchial cuffing. These findings are new from the prior study and could reflect component of mild pulmonary edema in the acute setting. Assessment and Plan (1) New onset of congestive heart failure: Status: Acute (2) COVID-19 virus infection: Status: Acute (3) Hospital-acquired pneumonia: Status: Acute (4) Asthma with COPD (chronic obstructive pulmonary disease): Status: Acute (5) Acute respiratory failure with hypoxia: Status: Acute Plan 66-year-old female with past medical history of asthma, chronic tobacco user with no official diagnosis of COPD but lifelong smoker, presents to the hospital with complaints of shortness of breath after recent discharge from the hospital management of fluid associated asthma exacerbation # acute hypoxic respiratory failure - likely multifactorial in the setting of COPD exacerbation as well as pneumonia as well as CHF complicated by COVID-19 infection - patient appears to have a component of all 3 with an increased cough sputum production as well as dyspnea, patient also complaining of orthopnea PND, has elevated BNP, patient also has a recent admission for influenza, comes in with COVID-19 infection, with chest x-ray findings of possible infiltrate - will treat with Lasix, IV antibiotics, Decadron - continue O2 as required - monitor respiratory status # COVID-19 infection - post flu infection 2 weeks prior - will treat with Decadron - monitor respiratory status # hospital-acquired pneumonia - recent discharge from the hospital after being managed for influenza - chest x-ray shows extensive peribronchial coughing and vascular prominence, in the setting of recent hospitalization, as well as underlying asthma/ COPD will treat patient with IV antibiotics - follow cultures - no evidence of sepsis, patient afebrile, no leukocytosis # asthma with COPD exacerbation - patient does not have an official COPD diagnosis but reports that she is a lifelong smoker - also has underlying asthma - as significant wheezing, increased sputum production, cough, dyspnea - will treat with Decadron the setting of COVID-19 infection, DuoNeb p.r.n. as well as schedule - monitor respiratory status - VBG shows no CO2 retention # new onset CHF - patient has elevated BNP, likely low in the setting of obesity - has evidence of volume overload on chest x-ray, also complaining of orthopnea and PND - will treat with Lasix - cardiology consult, strict I&O, daily weight, as well as low-sodium diet # diabetes - continue home insulin - low-dose sliding scale insulin - diabetic diet DVT prophylaxis: Heparin subQ given patient's need for IV antibiotics, as well as IV Solu-Medrol and DuoNebs patient require minimum 2 nights inpatient hospital stay for further management and monitoring Time Spent With Patient Time: Total time managing care of this patient today ____ minutes. Quality Stroke Does the patient have a stroke diagnosis?: No VTE Prior VTE?: No VTE Risk Level:: Medical - moderate - high VTE Device Contraindication: Treatment Not Indicated VTE Drug Contraindication: N/A - Med Ordered
[2022-03-15] MEDS: Heparin Sodium,Porcine 5,000 UNIT/ML VIAL 5000 UNIT SUBCUT ×2 (03:23→14:13)
[2022-03-15 06:45] LABS: Glucose, Whole Blood 353 mg/dL (60-115)
[2022-03-15] MEDS: Insulin Glargine,Hum.rec.anlog 100 UNIT/ML 10 ML VIAL 36 UNIT SUBCUT (07:32)
[2022-03-15] MEDS: Omeprazole 20 MG CAPSULE.DR PO (07:32)
[2022-03-15] MEDS: Oseltamivir Phosphate 30 MG CAPSULE PO (07:32)
[2022-03-15] MEDS: cefEPime HCl 1 GM in 0.9 % Sodium Chloride 50 ML IV ×2 (07:33→17:11)
[2022-03-15 07:46] LABS: Glucose, Whole Blood 368 mg/dL (60-115)
[2022-03-15] MEDS: Ergocalciferol (Vitamin D2) 1,250 MCG CAPSULE 1250 MCG PO (08:25)
[2022-03-15] MEDS: Metoprolol Succinate ER 100 MG TAB.ER.24H PO (08:26)
[2022-03-15] MEDS: dexAMETHasone sod phosphate 4 MG/ML VIAL 6 MG IVPUSH (08:26)
[2022-03-15] MEDS: Valsartan 160 MG TABLET PO (08:26)
[2022-03-15] MEDS: Insulin Lispro 100 UNIT/ML 3 ML VIAL SUBCUT ×4 (08:26→21:06)
[2022-03-15] MEDS: 0.9 % Sodium Chloride Flush 3 ML SYRINGE IVFLUSH ×3 (08:27→21:10)
[2022-03-15] MEDS: Furosemide 40 MG/4 ML VIAL IVPUSH (08:27)
[2022-03-15] MEDS: Albuterol/Iprat 2.5/0.5MG 3 ML AMPUL.NEB INHALE ×3 (08:28→20:15)
--- NOTE | 2022-03-15 08:48 | PHA.PROG ---
Admission Date/Time: March 15, 2022 01:36 Indication: RESPIRATORY Weight in k.4 kg Adjusted body weight in K.9 [place] body weight in K.3 Obesity Dosing Indication % IBW:OBESE Serum Creatinine - Last 168 Hours 03/15/22 00:01 Creatinine 1.92 H Estimated CrCl and GFR - Last 168 Hours 03/15/22 00:01 Estim Creat Clear Calc 29.7 Estimated GFR 26 Vancomycin Loading Dose: 2000 mg Current Vancomycin Dosing Regimen: 750 mg Q24H Vancomycin Monitoring using AUC goal of 400 - 600 range with trough as surrogate marker: 522 mg/L/hr Date and Time for next Vancomycin Level to be drawn: 03/17 @0600 Pharmacist Comments on Vancomycin Plan: obese model used. Q24H due to patients age. trough 03/17 @0600 renal function monitored daily Vancomycin dosing will take advantage of [employer] as a clinical decision support tool that uses Bayesian modeling to calculate individual patient's pharmacokinetic parameters and forecast the patient's drug concentration time course with the target goal AUC 24 range of 400 - 600 mg/L/hr.
--- NOTE | 2022-03-15 09:03 | MHC.CM.PN ---
Patient is Covid (+); CM initially spoke with Patient over the phone at [phone] and at her request, called her Daughter/HCP/Stephon @ [phone] and addressed IMM with her Daughter (original will be mailed certified letter to Stephon and a copy has been placed on the chart). Patient lives alone in an apartment and she required no services nor DME [employer]. Home/self care is the goal and CM has initiated and will follow for dc planning. PCP is from [place] in [place] and Patient has received [employer] vax x2.
[2022-03-15 11:14] LABS: Glucose, Whole Blood 380 mg/dL (60-115)
[2022-03-15 11:18] LABS: Hematocrit 30.8 % (37.0-47.0); Hemoglobin 9.7 g/dl (12.0-16.0); Imm Gran Abs Auto 0.08 X10*3/uL (0.00-0.03); Imm Gran Pct Auto 1.4 % (0.0-0.4); Lymphocytes Absolute Auto 0.2 X10*3/uL (1.2-4.9); Lymphocytes Percent Auto 4.1 % (20-40); Mean Corpuscular HGB Conc 31.5 g/dl (31.0-35.0); Mean Corpuscular Hemoglobin 25.5 pg (27.0-33.0); Mean Corpuscular Volume 80.8 fL (80.0-98.0); Mean Platelet Volume 12.8 fL (9.4-12.3); Monocytes Absolute Auto 0.1 X10*3/uL (0.1-1.2); Monocytes Percent Auto 0.9 % (2-11); Neutrophils Absolute Auto 5.3 x10*3/uL (2.0-8.3); Platelet Count 166 X10*3/uL (160-400); Red Blood Count 3.81 X10*6/uL (4.20-5.50); Red Cell Distribution Width 15.5 % (11.0-16.0); SCAN SMEAR FLAG 1; White Blood Count 5.7 X10*3/uL (4.8-10.8)
[2022-03-15 11:22] LABS: Neutrophils Percent Auto 93.6 % (45-73)
[2022-03-15 11:23] LABS: MANUAL DIFF FLAG NO
[2022-03-15 11:44] LABS: Troponin-I High Sensitivity 47.4 ng/L (<3.5-17.0)
[2022-03-15 11:47] LABS: Anion Gap 16 (12-20); Blood Urea Nitrogen 22 mg/dL (9-16); Calcium 7.6 mg/dL (8.4-10.2); Carbon Dioxide 25 mmol/L (22-29); Chloride 103 mmol/L (96-108); Creatinine Clr Calc Pharmacy 28.3; Estimated Glomerular Filt Rate 25; Glucose Random 374 mg/dL (60-115); Potassium 4.9 mmol/L (3.3-5.1); Sodium 139 mmol/L (135-145)
--- NOTE | 2022-03-15 13:39 | P.PNIM_ITS ---
Subjective Subjective Date of Service: 03/15/22 Interval History: sob Review of Systems sob seems improving denies any chest pain or abd pain or nausea or vomitin or fever Physical Exam Vital Signs: Vital Signs: Last Vital Signs Temp 98.3 F 03/15/22 11:09 Pulse 72 03/15/22 11:09 Resp 20 03/15/22 11:09 BP 130/63 03/15/22 11:09 Pulse Ox 97 03/15/22 11:09 O2 Del Method 03/15/22 11:09 O2 Flow Rate 2 03/15/22 11:09 Oxygen Flow Rate 2 03/14/22 22:37 BMI result Body Mass Index 38.0 physical exam-similar to h&p chest : air entry improving, no rales ,few wheezes Objective Data Active Medications Acetaminophen (Acetaminophen 325 Mg Tablet) 650 mg PO Q6H PRN PRN Reason: Pain, Mild (Pain Scale 1-3) Albuterol/Ipratropium (Albuterol/Iprat 2.5/0.5mg 3 Ml Ampul.Neb) 3 ml INHALE RQ4H PRN PRN Reason: Shortness of Breath/Wheezing Albuterol/Ipratropium (Albuterol/Iprat 2.5/0.5mg 3 Ml Ampul.Neb) 3 ml INHALE RQ4H WHILE AWAKE [facility] Last Admin: 03/15/22 12:17 Dose: Not Given Documented By: ROBERTO Non-Admin Reason: pt unavail Aspirin (Aspirin Enteric Coated 81 Mg Tablet.) 81 mg PO DAILY [facility] Atorvastatin Calcium (Atorvastatin Calcium 10 Mg Tablet) 10 mg PO BEDTIME [facility] Dexamethasone Sodium Phosphate (Dexamethasone Sod Phosphate 4 Mg/Ml Vial) 6 mg IVPUSH DAILY [facility] Last Admin: 03/15/22 08:26 Dose: 6 mg Documented By: MOLLY Dextrose (Dextrose 50 % 25 Gm/50 Ml Syringe) 25 gm IVPUSH Q15M PRN; Protocol PRN Reason: per Hypoglycemia Standing Ord. Docusate Sodium (Docusate Sodium 100 Mg Capsule) 100 mg PO DAILY PRN PRN Reason: Constipation Ergocalciferol (Ergocalciferol (Vitamin D2) 1,250 Mcg Capsule) 1,250 mcg PO Q7D [facility] Last Admin: 03/15/22 08:25 Dose: 1,250 mcg Documented By: MOLLY Furosemide (Furosemide 40 Mg Tablet) 40 mg PO DAILY [facility]; Protocol Glucose (Glucose Gel 15 Gm Gel..Gram.) 15 gm PO Q15M PRN; Protocol PRN Reason: per Hypoglycemia Standing Ord. Heparin Sodium (Porcine) (Heparin Sodium,Porcine 5,000 Unit/Ml Vial) 5,000 unit SUBCUT Q12H [facility] Last Admin: 03/15/22 03:23 Dose: 5,000 unit Documented By: YVAN Cefepime HCl 1 gm/ Sodium (Chloride) 50 mls @ 100 mls/hr IV Q12H [facility] Last Infusion: 03/15/22 08:07 Dose: 0 mls/hr Documented By: MOLLY Vancomycin HCl 1,000 mg/ (Sodium Chloride) 270 mls @ 270 mls/hr IV Q24H [facility] Insulin Glargine (Insulin Glargine,Hum.Rec.Anlog 100 Unit/Ml 10 Ml Vial) 40 unit SUBCUT DAILY [facility] Insulin Glargine (Insulin Glargine,Hum.Rec.Anlog 100 Unit/Ml 10 Ml Vial) 5 unit SUBCUT BEDTIME [facility] Insulin Human Lispro (Insulin Lispro 100 Unit/Ml 3 Ml Vial) 0 unit SUBCUT QIDACHS [facility]; Protocol Last Admin: 03/15/22 11:43 Dose: 14 unit Documented By: MOLLY Lorazepam (Lorazepam 1 Mg Tablet) 1 mg PO BID PRN PRN Reason: Insomnia Metoprolol Succinate (Metoprolol Succinate Er 100 Mg Tab.Er.24h) 100 mg PO DAILY [facility]; Protocol Last Admin: 03/15/22 08:26 Dose: 100 mg Documented By: MOLLY Mirtazapine (Mirtazapine 15 Mg Tablet) 45 mg PO BEDTIME [facility] Omeprazole (Omeprazole 20 Mg Capsule.) 20 mg PO DAILY@0630 [facility] Last Admin: 03/15/22 07:32 Dose: 20 mg Documented By: DARREN Ondansetron HCl (Ondansetron Hcl 4 Mg/2 Ml Vial) 4 mg IVPUSH Q8H PRN PRN Reason: Nausea and Vomiting Oseltamivir Phosphate (Oseltamivir Phosphate 30 Mg Capsule) 30 mg PO Q24H [facility] Last Admin: 03/15/22 07:32 Dose: 30 mg Documented By: DARREN Pharmacy Consult (Consult Rx Vancomycin Dosing) 1 each MISCELLANE DAILY PRN PRN Reason: Consult order Sodium Chloride (0.9 % Sodium Chloride Flush 3 Ml Syringe) 3 ml IVFLUSH QSHIFT [facility] Last Admin: 03/15/22 08:27 Dose: 3 ml Documented By: MOLLY Valsartan (Valsartan 160 Mg Tablet) 160 mg PO DAILY [facility] Last Admin: 03/15/22 08:26 Dose: 160 mg Documented By: MOLLY Zolpidem Tartrate (Zolpidem Tartrate 5 Mg Tablet) 5 mg PO BEDTIME PRN PRN Reason: insomnia Labs CBC & Chem 7: 03/15/22 10:08 03/15/22 10:08 Labs: Laboratory Results - last 24 hr 03/14/22 03/15/22 03/15/22 23:04 00:00 00:01 MCV 81.9 MCH 25.2 L MCHC 30.8 L RDW 15.5 Plt Count 144 L MPV 11.2 Immature Gran % (Auto) 0.9 H Neut % (Auto) 85.8 H Lymph % (Auto) 6.3 L [place] % (Auto) 5.5 Eos % (Auto) 1.4 Baso % (Auto) 0.1 Lymph # (Auto) 0.5 L [place] # (Auto) 0.5 Eos # (Auto) 0.1 Baso # (Auto) 0.0 Abs Immat Gran (auto) 0.07 H Absolute Neuts (auto) 7.0 Absolute Nucleated RBC 0.000 Nucleated RBC % (auto) 0.0 PT INR VBG pH VBG pCO2 VBG pO2 VBG HCO3 VBG O2 Saturation VBG Base Excess Anion Gap Estim Creat Clear Calc Estimated GFR POC Glucose 293 H Random Glucose Lactic Acid 1.4 Calcium Total Bilirubin Direct Bilirubin AST ALT Alkaline Phosphatase Troponin I High Sens B-Natriuretic Peptide Total Protein Albumin Influenza Type A (PCR) Influenza Type B (PCR) RSV RNA Qual (PCR) SARS-CoV-2 RNA (RT-PCR) 03/15/22 03/15/22 03/15/22 00:01 00:01 00:01 MCV MCH MCHC RDW Plt Count MPV Immature Gran % (Auto) Neut % (Auto) Lymph % (Auto) [place] % (Auto) Eos % (Auto) Baso % (Auto) Lymph # (Auto) [place] # (Auto) Eos # (Auto) Baso # (Auto) Abs Immat Gran (auto) Absolute Neuts (auto) Absolute Nucleated RBC Nucleated RBC % (auto) PT 11.4 INR 1.0 VBG pH VBG pCO2 VBG pO2 VBG HCO3 VBG O2 Saturation VBG Base Excess Anion Gap 12 Estim Creat Clear Calc 29.7 Estimated GFR 26 POC Glucose Random Glucose 288 H Lactic Acid Calcium 7.5 L D Total Bilirubin 0.2 Direct Bilirubin < 0.2 AST 15 ALT 16 Alkaline Phosphatase 82 Troponin I High Sens 62.2 H* B-Natriuretic Peptide Total Protein 5.0 L Albumin 2.7 L Influenza Type A (PCR) Influenza Type B (PCR) RSV RNA Qual (PCR) SARS-CoV-2 RNA (RT-PCR) 03/15/22 03/15/22 03/15/22 00:01 00:01 01:04 MCV MCH MCHC RDW Plt Count MPV Immature Gran % (Auto) Neut % (Auto) Lymph % (Auto) [place] % (Auto) Eos % (Auto) Baso % (Auto) Lymph # (Auto) [place] # (Auto) Eos # (Auto) Baso # (Auto) Abs Immat Gran (auto) Absolute Neuts (auto) Absolute Nucleated RBC Nucleated RBC % (auto) PT INR VBG pH 7.39 VBG pCO2 45 VBG pO2 57 VBG HCO3 28 H VBG O2 Saturation 86.0 VBG Base Excess 3.0 Anion Gap Estim Creat Clear Calc Estimated GFR POC Glucose Random Glucose Lactic Acid Calcium Total Bilirubin Direct Bilirubin AST ALT Alkaline Phosphatase Troponin I High Sens B-Natriuretic Peptide 223 H Total Protein Albumin Influenza Type A (PCR) NEGATIVE Influenza Type B (PCR) NEGATIVE RSV RNA Qual (PCR) NEGATIVE SARS-CoV-2 RNA (RT-PCR) POSITIVE A 03/15/22 03/15/22 03/15/22 06:41 07:39 10:08 MCV 80.8 MCH 25.5 L MCHC 31.5 RDW 15.5 Plt Count 166 MPV 12.8 H Immature Gran % (Auto) 1.4 H Neut % (Auto) 93.6 H Lymph % (Auto) 4.1 L [place] % (Auto) 0.9 L Eos % (Auto) 0.0 Baso % (Auto) 0.0 Lymph # (Auto) 0.2 L [place] # (Auto) 0.1 Eos # (Auto) 0.0 Baso # (Auto) 0.0 Abs Immat Gran (auto) 0.08 H Absolute Neuts (auto) 5.3 Absolute Nucleated RBC 0.000 Nucleated RBC % (auto) 0.0 PT INR VBG pH VBG pCO2 VBG pO2 VBG HCO3 VBG O2 Saturation VBG Base Excess Anion Gap Estim Creat Clear Calc Estimated GFR POC Glucose 353 H* 368 H* Random Glucose Lactic Acid Calcium Total Bilirubin Direct Bilirubin AST ALT Alkaline Phosphatase Troponin I High Sens B-Natriuretic Peptide Total Protein Albumin Influenza Type A (PCR) Influenza Type B (PCR) RSV RNA Qual (PCR) SARS-CoV-2 RNA (RT-PCR) 03/15/22 03/15/22 03/15/22 10:08 10:08 11:10 MCV MCH MCHC RDW Plt Count MPV Immature Gran % (Auto) Neut % (Auto) Lymph % (Auto) [place] % (Auto) Eos % (Auto) Baso % (Auto) Lymph # (Auto) [place] # (Auto) Eos # (Auto) Baso # (Auto) Abs Immat Gran (auto) Absolute Neuts (auto) Absolute Nucleated RBC Nucleated RBC % (auto) PT INR VBG pH VBG pCO2 VBG pO2 VBG HCO3 VBG O2 Saturation VBG Base Excess Anion Gap 16 Estim Creat Clear Calc 28.3 Estimated GFR 25 POC Glucose 380 H* Random Glucose 374 H* Lactic Acid Calcium 7.6 L Total Bilirubin Direct Bilirubin AST ALT Alkaline Phosphatase Troponin I High Sens 47.4 H B-Natriuretic Peptide Total Protein Albumin Influenza Type A (PCR) Influenza Type B (PCR) RSV RNA Qual (PCR) SARS-CoV-2 RNA (RT-PCR) Assessment and Plan (1) Acute respiratory failure with hypoxia: Status: Acute (2) Asthma with COPD (chronic obstructive pulmonary disease): Status: Acute (3) Hospital-acquired pneumonia: Status: Acute (4) COVID-19 virus infection: Status: Acute (5) New onset of congestive heart failure: Status: Acute (6) COPD exacerbation: Status: Acute (7) Hyperglycemia due to diabetes mellitus: Status: Acute Plan 66-year-old female with past medical history of asthma, chronic tobacco user with no official diagnosis of COPD but lifelong smoker, presents to the hospital with complaints of shortness of breath after recent discharge from the hospital management of fluid associated? asthma exacerbation #? acute hypoxic respiratory failure -? likely multifactorial in the setting of COPD exacerbation as well as pneumonia , complicated by COVID-19 infection -? patient appears to have a component of all 3 with an increased cough sputum production as well as dyspnea, patient also complaining of orthopnea PND, has elevated BNP, patient also has a recent admission for influenza, comes in with COVID-19 infection, with chest x-ray findings of possible infiltrate continue IV antibiotics, Decadron -? continue O2 as required -? monitor respiratory status #? COVID-19 infection -? post flu infection 2 weeks prior -? will treat with Decadron -? monitor respiratory status #? hospital-acquired pneumonia -? recent discharge from the hospital after being managed for influenza -? chest x-ray shows extensive peribronchial coughing and vascular prominence, in the setting of recent hospitalization,? as well as underlying asthma/ COPD will treat patient with IV antibiotics -? follow cultures -? no evidence of sepsis, patient afebrile, no leukocytosis #? asthma with COPD exacerbation -? patient does not have an official COPD diagnosis but reports that she is a lifelong smoker -? also has underlying asthma -? as significant wheezing, increased sputum production, cough, dyspnea -? will treat with Decadron the setting of? COVID-19 infection, DuoNeb p.r.n. as well as schedule -? monitor respiratory status -? VBG shows no CO2 retention #? possible CHF-etiology unclear ? elevated trop -insetting of covid/pneumonia no chest pain ,no leg edema -? patient has elevated BNP( near to her previous value) -? has evidence of volume overload on chest x-ray-?congestion strict I&O, daily weight, as well as low-sodium diet sob improving,no leg edema switched to po Lasix ,will get echo. #? diabetes with hyperglycemia ( sec to steriods,lasix) adjusted lantus and sliding scale insulin -? diabetic diet ?DVT prophylaxis:? Heparin subQ inpatient need for pneumonia /copd excerebation in setting of covid -IV antibiotics, as well as dexamethsone and DuoNebs ,also need cardac workup including echo for possible chf. Time Spent With Patient Time: Total time managing care of this patient today ____ minutes. Quality Stroke Does the patient have a stroke diagnosis?: No VTE Prior VTE?: No VTE Risk Level:: Medical - moderate - high VTE Device Contraindication: Treatment Not Indicated VTE Drug Contraindication: N/A - Med Ordered
--- NOTE | 2022-03-15 13:57 | PHA.MEDREC ---
Pharmacy Consult ? Medication Reconciliation Pharmacy has completed the medication reconciliation. Called family member (Stephon [phone]) to confirm meds.
[2022-03-15] MEDS: Insulin Glargine,Hum.rec.anlog 100 UNIT/ML 10 ML VIAL SUBCUT (14:12)
[2022-03-15 16:09] LABS: Glucose, Whole Blood 180 mg/dL (60-115)
[2022-03-15 19:47] LABS: Glucose, Whole Blood 362 mg/dL (60-115)
[2022-03-15] MEDS: Atorvastatin Calcium 10 MG TABLET PO (21:06)
[2022-03-15] MEDS: Mirtazapine 15 MG TABLET 45 MG PO (21:06)
[2022-03-15 21:14] LABS: Glucose, Whole Blood 359 mg/dL (60-115)
[2022-03-16] VITALS (12 sets, daily range): BP systolic 142–184; BP diastolic 56–88; PULSE 68–100; RESP 18–20; TEMP 36.2–37.6; O2SAT 94–98
[2022-03-16] MEDS: Zolpidem Tartrate 5 MG TABLET PO ×2 (00:51→20:44)
[2022-03-16] MEDS: LORazepam 1 MG TABLET PO ×2 (00:51→20:44)
[2022-03-16] MEDS: Heparin Sodium,Porcine 5,000 UNIT/ML VIAL 5000 UNIT SUBCUT ×2 (00:53→15:04)
[2022-03-16] MEDS: Albuterol/Iprat 2.5/0.5MG 3 ML AMPUL.NEB INHALE ×4 (03:08→20:02)
[2022-03-16] MEDS: Acetaminophen 325 MG TABLET 650 MG PO (04:14)
[2022-03-16] MEDS: Omeprazole 20 MG CAPSULE.DR PO (05:57)
[2022-03-16] MEDS: Oseltamivir Phosphate 30 MG CAPSULE PO (05:57)
[2022-03-16] MEDS: cefEPime HCl 1 GM in 0.9 % Sodium Chloride 50 ML IV ×2 (06:03→18:33)
[2022-03-16 07:24] LABS: Cholesterol 188 mg/dL; HDL Cholesterol 32 mg/dL; LDL Cholesterol Calculated 117 mg/dl; Triglycerides 197 mg/dL
[2022-03-16 07:28] LABS: Glucose, Whole Blood 248 mg/dL (60-115)
[2022-03-16] MEDS: Insulin Lispro 100 UNIT/ML 3 ML VIAL SUBCUT ×4 (08:03→20:49)
[2022-03-16] MEDS: dexAMETHasone sod phosphate 4 MG/ML VIAL 6 MG IVPUSH (08:03)
[2022-03-16] MEDS: Valsartan 160 MG TABLET PO (08:04)
[2022-03-16] MEDS: Insulin Glargine,Hum.rec.anlog 100 UNIT/ML 10 ML VIAL 40 UNIT SUBCUT (08:04)
[2022-03-16] MEDS: Aspirin Enteric Coated 81 MG TABLET.DR PO (08:04)
[2022-03-16] MEDS: Metoprolol Succinate ER 100 MG TAB.ER.24H PO (08:04)
[2022-03-16] MEDS: Furosemide 40 MG TABLET PO (08:04)
[2022-03-16] MEDS: vancomycin HCL 1,000 MG in 0.9 % Sodium Chloride 250 ML 270 MG IV (08:05)
[2022-03-16] MEDS: 0.9 % Sodium Chloride Flush 3 ML SYRINGE IVFLUSH ×3 (08:06→20:47)
[2022-03-16 08:38] LABS: Creatinine Clr Calc Pharmacy 28.3; Estimated Glomerular Filt Rate 25
[2022-03-16 10:26] LABS: VBG Base Excess 0.6 mmol/L; VBG HCO3 22 mmol/L (22-26); VBG pCO2 28 mmHg; VBG pH 7.51 (7.32-7.43); VBG pO2 113 mmHg
[2022-03-16 10:26] LABS: Venous Blood Gas Refer to POC result
[2022-03-16 10:40] LABS: Anion Gap 14 (12-20); Blood Urea Nitrogen 31 mg/dL (9-16); Calcium 8.1 mg/dL (8.4-10.2); Carbon Dioxide 24 mmol/L (22-29); Chloride 103 mmol/L (96-108); Creatinine Clr Calc Pharmacy 27.9; Estimated Glomerular Filt Rate 24; Glucose Random 287 mg/dL (60-115); Potassium 4.5 mmol/L (3.3-5.1); Sodium 136 mmol/L (135-145)
[2022-03-16] MEDS: Furosemide 40 MG/4 ML VIAL IVPUSH (10:44)
[2022-03-16] MEDS: ALPRAZolam 0.5 MG TABLET PO (10:44)
[2022-03-16 10:55] LABS: B Type Natriuretic Peptide 527 pg/mL (<100)
[2022-03-16] MEDS: Albuterol Sulfate 5 MG, Albuterol Sulfate (0.083%) 2.5 MG 7.5 MG INHALE (11:29)
[2022-03-16 11:32] LABS: Glucose, Whole Blood 234 mg/dL (60-115)
--- NOTE | 2022-03-16 12:41 | P.CONCA_ITS ---
History of Present Illness History of Present Illness Date of Service: 03/16/22 Requesting physician: Edenilson Vallejo Chief complaint: CHF, COPD, COVID Narrative: 66-year-old female was known history of COPD presenting with COVID-19 infection and respiratory distress. She recently had influenza a on March 02. She now presenting with shortness of breath and has tested positive for COVID-19. She is known steroids and IV antibiotics. She also was complaining of orthopnea and PND and has elevated BNP levels. Chest x-ray also is showing concern for congestive heart failure. We have been asked to assess her for heart failure. Patient is saying that she has no chest discomfort but has shortness of breath still present. She has been started on IV diuretics at this stage. She is a current smoker. [facility] Past Medical History Medical History Asthma Chronic kidney disease (CKD) stage G3b/A1, moderately decreased glomerular filtration rate (GFR) between 30-44 mL/min/1.73 square meter and albuminuria creatinine ratio less than 30 mg/g Diabetes Diabetes HTN (hypertension) Family History Family History (Updated 03/15/22 @ 06:08 by Vesna Duncan MD) Other No family history of coronary artery disease Social History Social History Household Members: Significant Other Housing: Apartment Do you presently have visiting nurse or other home services: No Alcohol intake: never Patient Tobacco Use Status: Current everyday Tobacco user Tobacco use type: Cigarette Smoked in Last 30 Days: Yes Patient Interested in Nicotine Replacement: No Patient Given Instructions on How to Stop Smoking: Yes Date Education Initiated: 03/15/22 Second Hand Smoke Exposure: No Use of substances other than those prescribed or required for medical reasons: No Currently Displaying Signs/Symptoms of Drug Intoxication Withdrawal: No Any prior treatment program specific to substance use: No Have you been hit, kicked, punched, or otherwise hurt by someone within the past year? If so, by whom?: No Do you feel safe in your current relationship?: Yes Is there a partner from a previous relationship who is making you feel unsafe now?: No Are you made to feel afraid or neglected: No Advance Directives: No Advance Directives Information Provided: No Advance Directives on File: No Do you have thoughts of harming others: None Do you have a plan to hurt others: No Plan Recently lost weight without trying: No Eating poorly because of decreased appetite: No Nutrition Risks: No Nutritional Risk Patient : No : No Poor oral hygiene: No service: No Current occupational status: disabled Meds Allergies Allergy/AdvReac Type Severity Reaction Status Date / Time lisinopril [From ZESTRIL] Allergy Intermediate [place] Verified 02/08/21 05:30 amlodipine Allergy Unknown Verified 02/08/21 05:30 Active Medications: Current Medications Acetaminophen (Acetaminophen 325 Mg Tablet) 650 mg PO Q6H PRN PRN Reason: Pain, Mild (Pain Scale 1-3) Last Admin: 03/16/22 04:14 Dose: 650 mg Al Hydroxide/Mg Hydroxide (Magnesium Hydrox/Alum Hydrox 30 Ml Oral.Susp) 15 ml PO Q4H PRN PRN Reason: heartburn Albuterol/Ipratropium (Albuterol/Iprat 2.5/0.5mg 3 Ml Ampul.Neb) 3 ml INHALE RQ4H PRN PRN Reason: Shortness of Breath/Wheezing Last Admin: 03/16/22 03:08 Dose: 3 ml Albuterol/Ipratropium (Albuterol/Iprat 2.5/0.5mg 3 Ml Ampul.Neb) 3 ml INHALE RQ4H WHILE AWAKE [facility] Last Admin: 03/16/22 11:40 Dose: Not Given Aspirin (Aspirin Enteric Coated 81 Mg Tablet.) 81 mg PO DAILY [facility] Last Admin: 03/16/22 08:04 Dose: 81 mg Atorvastatin Calcium (Atorvastatin Calcium 10 Mg Tablet) 10 mg PO BEDTIME [facility] Last Admin: 03/15/22 21:06 Dose: 10 mg Dexamethasone Sodium Phosphate (Dexamethasone Sod Phosphate 4 Mg/Ml Vial) 6 mg IVPUSH DAILY [facility] Last Admin: 03/16/22 08:03 Dose: 6 mg Dextrose (Dextrose 50 % 25 Gm/50 Ml Syringe) 25 gm IVPUSH Q15M PRN; Protocol PRN Reason: per Hypoglycemia Standing Ord. Docusate Sodium (Docusate Sodium 100 Mg Capsule) 100 mg PO DAILY PRN PRN Reason: Constipation Ergocalciferol (Ergocalciferol (Vitamin D2) 1,250 Mcg Capsule) 1,250 mcg PO Q7D [facility] Last Admin: 03/15/22 08:25 Dose: 1,250 mcg Furosemide (Furosemide 40 Mg Tablet) 40 mg PO DAILY [facility]; Protocol Last Admin: 03/16/22 08:04 Dose: 40 mg Furosemide (Furosemide 40 Mg/4 Ml Vial) 40 mg IVPUSH DAILY [facility]; Protocol Glucose (Glucose Gel 15 Gm Gel..Gram.) 15 gm PO Q15M PRN; Protocol PRN Reason: per Hypoglycemia Standing Ord. Heparin Sodium (Porcine) (Heparin Sodium,Porcine 5,000 Unit/Ml Vial) 5,000 unit SUBCUT Q12H [facility] Last Admin: 03/16/22 00:53 Dose: 5,000 unit Cefepime HCl 1 gm/ Sodium (Chloride) 50 mls @ 100 mls/hr IV Q12H [facility] Last Infusion: 03/16/22 06:43 Dose: Infused Vancomycin HCl 1,000 mg/ (Sodium Chloride) 270 mls @ 270 mls/hr IV Q24H [facility] Last Admin: 03/16/22 08:05 Dose: 270 mls/hr Insulin Glargine (Insulin Glargine,Hum.Rec.Anlog 100 Unit/Ml 10 Ml Vial) 40 unit SUBCUT DAILY [facility] Last Admin: 03/16/22 08:04 Dose: 40 unit Insulin Human Lispro (Insulin Lispro 100 Unit/Ml 3 Ml Vial) 0 unit SUBCUT QIDACHS [facility]; Protocol Last Admin: 03/16/22 12:12 Dose: 2 unit Lorazepam (Lorazepam 1 Mg Tablet) 1 mg PO BID PRN PRN Reason: Insomnia Last Admin: 03/16/22 00:51 Dose: 1 mg Metoprolol Succinate (Metoprolol Succinate Er 100 Mg Tab.Er.24h) 100 mg PO DAILY [facility]; Protocol Last Admin: 03/16/22 08:04 Dose: 100 mg Mirtazapine (Mirtazapine 15 Mg Tablet) 45 mg PO BEDTIME [facility] Last Admin: 03/15/22 21:06 Dose: 45 mg Omeprazole (Omeprazole 20 Mg Capsule.Dr) 20 mg PO DAILY@0630 [facility] Last Admin: 03/16/22 05:57 Dose: 20 mg Ondansetron HCl (Ondansetron Hcl 4 Mg/2 Ml Vial) 4 mg IVPUSH Q8H PRN PRN Reason: Nausea and Vomiting Oseltamivir Phosphate (Oseltamivir Phosphate 30 Mg Capsule) 30 mg PO Q24H [facility] Last Admin: 03/16/22 05:57 Dose: 30 mg Pharmacy Consult (Consult Rx Vancomycin Dosing) 1 each MISCELLANE DAILY PRN PRN Reason: Consult order Sodium Chloride (0.9 % Sodium Chloride Flush 3 Ml Syringe) 3 ml IVFLUSH QSHIFT [facility] Last Admin: 03/16/22 08:06 Dose: 3 ml Valsartan (Valsartan 160 Mg Tablet) 160 mg PO DAILY [facility] Last Admin: 03/16/22 08:04 Dose: 160 mg Zolpidem Tartrate (Zolpidem Tartrate 5 Mg Tablet) 5 mg PO BEDTIME PRN PRN Reason: insomnia Last Admin: 03/16/22 00:51 Dose: 5 mg Home Medications Medication Instructions Recorded Confirmed Last Taken Type blood sugar diagnostic (OneTouch 02/08/21 03/15/22 Unknown History Ultra Test strips) ergocalciferol (vitamin D2) 1,250 1,250 mcg PO QWEEK 02/08/21 03/15/22 03/01/22 History mcg (50,000 unit) capsule insulin glargine 100 unit/mL 36 unit subcut DAILY 02/08/21 03/15/22 03/14/22 History subcutaneous solution (Lantus U-100 Insulin) insulin syringe-needle U-100 1 mL 02/08/21 03/15/22 Unknown History 31 gauge x 08/11 lorazepam 1 mg tablet 1 mg PO BID PRN Insomnia 02/08/21 03/15/22 03/14/22 History mirtazapine 45 mg tablet 45 mg PO BEDTIME 02/08/21 03/15/22 03/14/22 History olmesartan 40 mg tablet 40 mg PO DAILY 02/08/21 03/15/22 03/14/22 History simvastatin 10 mg tablet 10 mg PO BEDTIME 02/08/21 03/15/22 03/14/22 History zolpidem 10 mg tablet 10 mg PO BEDTIME PRN insomnia 02/08/21 03/15/22 03/01/22 History metoprolol succinate 100 mg 100 mg PO DAILY 03/03/22 03/15/22 03/14/22 History tablet,extended release 24 hr omeprazole 20 mg tablet,delayed 20 mg PO DAILY@0630 03/03/22 03/15/2222 History release albuterol sulfate 2.5 mg/3 mL 2.5 mg inhalation Q4H PRN 03/15/22 03/15/22 Unknown History (0.083 %) solution for nebulization Shortness Of Breath Or Wheezing albuterol sulfate 90 mcg/actuation 2 puff inhalation Q4H PRN wheezing 03/15/22 03/15/22 Unknown History aerosol inhaler fluticasone propionate 220 2 puff inhalation BID 03/15/22 03/15/22 03/14/22 History mcg/actuation HFA aerosol inhaler (Flovent HFA) pen needle, diabetic 31 gauge x 03/15/22 03/15/22 Unknown History 06/11 (BD Ultra-Fine Mini Pen Needle) Physical Exam Vital Signs: Vital Signs: Last Vital Signs Temp 99.0 F 03/16/22 12:00 Pulse 100 03/16/22 12:00 Resp 20 03/16/22 12:00 BP 148/88 H 03/16/22 12:00 Pulse Ox 94 03/16/22 12:00 O2 Del Method 03/16/22 12:00 O2 Flow Rate 3 03/16/22 12:00 Oxygen Flow Rate 2 03/14/22 22:37 BMI result Body Mass Index 38.0 GENERAL APPEARANCE: Short of breath. On supplemental oxygen. NECK: no carotid bruit, positive jugular venous distention. SKIN: no suspicious lesions, warm and dry. HEART: no murmurs, regular rate and rhythm. LUNGS: Crackles at bases. ABDOMEN: soft, nontender. EXTREMITIES: Trace edema bilateral. PERIPHERAL PULSES: equal. NEUROLOGIC: No gross deficits, AAO X 3 Objective Labs and Meds Result diagrams: 03/15/22 10:08 03/16/22 10:17 Lab results: Laboratory Results - last 24 hr 03/15/22 03/15/22 03/15/22 16:05 19:45 21:05 VBG pH VBG pCO2 VBG pO2 VBG HCO3 VBG O2 Saturation VBG Base Excess Sodium Potassium Chloride Carbon Dioxide Anion Gap BUN Creatinine Estim Creat Clear Calc Estimated GFR POC Glucose 180 H 362 H* 359 H* Random Glucose Calcium B-Natriuretic Peptide Triglycerides Cholesterol LDL Cholesterol, Calc HDL Cholesterol 03/16/22 03/16/22 03/16/22 06:23 07:24 08:13 VBG pH VBG pCO2 VBG pO2 VBG HCO3 VBG O2 Saturation VBG Base Excess Sodium Potassium Chloride Carbon Dioxide Anion Gap BUN Creatinine 2.01 H Estim Creat Clear Calc 28.3 Estimated GFR 25 POC Glucose 248 H Random Glucose Calcium B-Natriuretic Peptide Triglycerides 197 Cholesterol 188 LDL Cholesterol, Calc 117 HDL Cholesterol 32 03/16/22 03/16/22 03/16/22 10:17 10:17 10:21 VBG pH 7.51 H VBG pCO2 28 VBG pO2 113 VBG HCO3 22 VBG O2 Saturation 100.0 VBG Base Excess 0.6 Sodium 136 Potassium 4.5 Chloride 103 Carbon Dioxide 24 Anion Gap 14 BUN 31 H Creatinine 2.04 H Estim Creat Clear Calc 27.9 Estimated GFR 24 POC Glucose Random Glucose 287 H Calcium 8.1 L D B-Natriuretic Peptide 527 H Triglycerides Cholesterol LDL Cholesterol, Calc HDL Cholesterol 03/16/22 11:19 VBG pH VBG pCO2 VBG pO2 VBG HCO3 VBG O2 Saturation VBG Base Excess Sodium Potassium Chloride Carbon Dioxide Anion Gap BUN Creatinine Estim Creat Clear Calc Estimated GFR POC Glucose 234 H Random Glucose Calcium B-Natriuretic Peptide Triglycerides Cholesterol LDL Cholesterol, Calc HDL Cholesterol Imaging Radiologist's impression: Impressions Chest X-Ray 03/16/22 10:12 IMPRESSION: New/significantly worsened multifocal airspace opacity most likely multifocal pneumonia. Prominent pulmonary vascularity likely pulmonary venous hypertension. Assessment and Plan (1) New onset of congestive heart failure: Status: Acute Plan 66-year-old female who had influenza A earlier this month and now presenting with COVID-19 infection and pneumonia. She is also in mild congestive heart failure. Agree with diuretics. Recommend echocardiography to assess LV for any structural issues like cardiomyopathy. Blood pressure is mildly elevated. Can titrate valsartan to 320 mg daily. Continue gentle diuresis. We will follow along with you. Thank you for allowing me to participate in the care of your patient. Please feel free to contact me if you have any questions. Time Spent With Patient Time: Total time managing care of this patient today ____ minutes. Procedures Date of Service Date of Service: 03/16/22
--- NOTE | 2022-03-16 13:30 | HO.PM.IMPN ---
Subjective Subjective Date of Service: 03/16/22 Interval History: sob Review of Systems sob seems improving denies any chest pain or abd pain or nausea or vomitin or fever Physical Exam Vital Signs: Vital Signs: Last Vital Signs Temp 99.0 F 03/16/22 12:00 Pulse 100 03/16/22 12:00 Resp 20 03/16/22 12:00 BP 148/88 H 03/16/22 12:00 Pulse Ox 94 03/16/22 12:00 O2 Del Method 03/16/22 12:00 O2 Flow Rate 3 03/16/22 12:00 Oxygen Flow Rate 2 03/14/22 22:37 BMI result Body Mass Index 38.0 Appearance: Alert.? Oriented X3.? not in distress.? cvs: rrr, [id number] , no murmur res: air entry dimished at bases ,has few wheezes abd: no rebound or guarding ,nt, bs present. ext pulses present , no cyanosis . neuro: axo3 , nonfocal. Objective Data Active Medications Acetaminophen (Acetaminophen 325 Mg Tablet) 650 mg PO Q6H PRN PRN Reason: Pain, Mild (Pain Scale 1-3) Last Admin: 03/16/22 04:14 Dose: 650 mg Documented By: NEVIN Al Hydroxide/Mg Hydroxide (Magnesium Hydrox/Alum Hydrox 30 Ml Oral.Susp) 15 ml PO Q4H PRN PRN Reason: heartburn Albuterol/Ipratropium (Albuterol/Iprat 2.5/0.5mg 3 Ml Ampul.Neb) 3 ml INHALE RQ4H PRN PRN Reason: Shortness of Breath/Wheezing Last Admin: 03/16/22 03:08 Dose: 3 ml Documented By: MARIA ISABEL Albuterol/Ipratropium (Albuterol/Iprat 2.5/0.5mg 3 Ml Ampul.Neb) 3 ml INHALE RQ4H WHILE AWAKE [facility] Last Admin: 03/16/22 11:40 Dose: Not Given Documented By: MITZI Non-Admin Reason: See Note Aspirin (Aspirin Enteric Coated 81 Mg Tablet.) 81 mg PO DAILY [facility] Last Admin: 03/16/22 08:04 Dose: 81 mg Documented By: CTORRAnushka Atorvastatin Calcium (Atorvastatin Calcium 10 Mg Tablet) 10 mg PO BEDTIME [facility] Last Admin: 03/15/22 21:06 Dose: 10 mg Documented By: NEVIN Dexamethasone Sodium Phosphate (Dexamethasone Sod Phosphate 4 Mg/Ml Vial) 6 mg IVPUSH DAILY [facility] Last Admin: 03/16/22 08:03 Dose: 6 mg Documented By: MNIE Dextrose (Dextrose 50 % 25 Gm/50 Ml Syringe) 25 gm IVPUSH Q15M PRN; Protocol PRN Reason: per Hypoglycemia Standing Ord. Docusate Sodium (Docusate Sodium 100 Mg Capsule) 100 mg PO DAILY PRN PRN Reason: Constipation Ergocalciferol (Ergocalciferol (Vitamin D2) 1,250 Mcg Capsule) 1,250 mcg PO Q7D [facility] Last Admin: 03/15/22 08:25 Dose: 1,250 mcg Documented By: MOLLY Furosemide (Furosemide 40 Mg/4 Ml Vial) 40 mg IVPUSH DAILY [facility]; Protocol Glucose (Glucose Gel 15 Gm Gel..Gram.) 15 gm PO Q15M PRN; Protocol PRN Reason: per Hypoglycemia Standing Ord. Heparin Sodium (Porcine) (Heparin Sodium,Porcine 5,000 Unit/Ml Vial) 5,000 unit SUBCUT Q12H [facility] Last Admin: 03/16/22 00:53 Dose: 5,000 unit Documented By: NEVIN Cefepime HCl 1 gm/ Sodium (Chloride) 50 mls @ 100 mls/hr IV Q12H [facility] Last Infusion: 03/16/22 06:43 Dose: 0 mls/hr Documented By: NEVIN Vancomycin HCl 1,000 mg/ (Sodium Chloride) 270 mls @ 270 mls/hr IV Q24H [facility] Last Infusion: 03/16/22 12:52 Dose: 0 mls/hr Documented By: MINE Insulin Glargine (Insulin Glargine,Hum.Rec.Anlog 100 Unit/Ml 10 Ml Vial) 40 unit SUBCUT DAILY [facility] Last Admin: 03/16/22 08:04 Dose: 40 unit Documented By: MINE Insulin Human Lispro (Insulin Lispro 100 Unit/Ml 3 Ml Vial) 0 unit SUBCUT QIDACHS [facility]; Protocol Last Admin: 03/16/22 12:12 Dose: 2 unit Documented By: MINE Lorazepam (Lorazepam 1 Mg Tablet) 1 mg PO BID PRN PRN Reason: Insomnia Last Admin: 03/16/22 00:51 Dose: 1 mg Documented By: NEVIN Metoprolol Succinate (Metoprolol Succinate Er 100 Mg Tab.Er.24h) 100 mg PO DAILY [facility]; Protocol Last Admin: 03/16/22 08:04 Dose: 100 mg Documented By: MINE Mirtazapine (Mirtazapine 15 Mg Tablet) 45 mg PO BEDTIME [facility] Last Admin: 03/15/22 21:06 Dose: 45 mg Documented By: NEVIN Omeprazole (Omeprazole 20 Mg Capsule.Dr) 20 mg PO DAILY@0630 [facility] Last Admin: 03/16/22 05:57 Dose: 20 mg Documented By: NEVIN Ondansetron HCl (Ondansetron Hcl 4 Mg/2 Ml Vial) 4 mg IVPUSH Q8H PRN PRN Reason: Nausea and Vomiting Oseltamivir Phosphate (Oseltamivir Phosphate 30 Mg Capsule) 30 mg PO Q24H [facility] Last Admin: 03/16/22 05:57 Dose: 30 mg Documented By: NEVIN Pharmacy Consult (Consult Rx Vancomycin Dosing) 1 each MISCELLANE DAILY PRN PRN Reason: Consult order Sodium Chloride (0.9 % Sodium Chloride Flush 3 Ml Syringe) 3 ml IVFLUSH QSHIFT [facility] Last Admin: 03/16/22 08:06 Dose: 3 ml Documented By: MINE Valsartan (Valsartan 160 Mg Tablet) 160 mg PO DAILY [facility] Last Admin: 03/16/22 08:04 Dose: 160 mg Documented By: MINE Zolpidem Tartrate (Zolpidem Tartrate 5 Mg Tablet) 5 mg PO BEDTIME PRN PRN Reason: insomnia Last Admin: 03/16/22 00:51 Dose: 5 mg Documented By: NEVIN Labs CBC & Chem 7: 03/15/22 10:08 03/16/22 10:17 Labs: Laboratory Results - last 24 hr 03/15/22 03/15/22 03/15/22 16:05 19:45 21:05 VBG pH VBG pCO2 VBG pO2 VBG HCO3 VBG O2 Saturation VBG Base Excess Anion Gap Estim Creat Clear Calc Estimated GFR POC Glucose 180 H 362 H* 359 H* Random Glucose Calcium B-Natriuretic Peptide Triglycerides Cholesterol LDL Cholesterol, Calc HDL Cholesterol 03/16/22 03/16/22 03/16/22 06:23 07:24 08:13 VBG pH VBG pCO2 VBG pO2 VBG HCO3 VBG O2 Saturation VBG Base Excess Anion Gap Estim Creat Clear Calc 28.3 Estimated GFR 25 POC Glucose 248 H Random Glucose Calcium B-Natriuretic Peptide Triglycerides 197 Cholesterol 188 LDL Cholesterol, Calc 117 HDL Cholesterol 32 03/16/22 03/16/22 03/16/22 10:17 10:17 10:21 VBG pH 7.51 H VBG pCO2 28 VBG pO2 113 VBG HCO3 22 VBG O2 Saturation 100.0 VBG Base Excess 0.6 Anion Gap 14 Estim Creat Clear Calc 27.9 Estimated GFR 24 POC Glucose Random Glucose 287 H Calcium 8.1 L D B-Natriuretic Peptide 527 H Triglycerides Cholesterol LDL Cholesterol, Calc HDL Cholesterol 03/16/22 11:19 VBG pH VBG pCO2 VBG pO2 VBG HCO3 VBG O2 Saturation VBG Base Excess Anion Gap Estim Creat Clear Calc Estimated GFR POC Glucose 234 H Random Glucose Calcium B-Natriuretic Peptide Triglycerides Cholesterol LDL Cholesterol, Calc HDL Cholesterol Microbiology Microbiology Results: Microbiology 03/15/22 00:01 Blood Culture - Preliminary Blood - Venous No growth after 24 hours. 03/15/22 00:01 Blood Culture - Preliminary Blood - Venous No growth after 24 hours. Assessment and Plan (1) Acute respiratory failure with hypoxia: Status: Acute (2) Asthma with COPD (chronic obstructive pulmonary disease): Status: Acute (3) Hospital-acquired pneumonia: Status: Acute (4) COVID-19 virus infection: Status: Acute (5) New onset of congestive heart failure: Status: Acute (6) COPD exacerbation: Status: Acute (7) Hyperglycemia due to diabetes mellitus: Status: Acute Plan 66-year-old female with past medical history of asthma, chronic tobacco user with no official diagnosis of COPD but lifelong smoker, presents to the hospital with complaints of shortness of breath after recent discharge from the hospital management of fluid associated? asthma exacerbation #? acute hypoxic respiratory failure -? likely multifactorial in the setting of COPD exacerbation as well as pneumonia , complicated by COVID-19 infection -? patient appears to have a component of all 3 with an increased cough sputum production as well as dyspnea, patient also complaining of orthopnea PND, has elevated BNP, patient also has a recent admission for influenza, comes in with COVID-19 infection, with chest x-ray findings of possible infiltrate vbg seems fine continue IV antibiotics, Decadron,given extra nebs. -? continue O2 as required -? monitor respiratory status #? COVID-19 infection -? post flu infection 2 weeks prior continue Decadron,?monitor respiratory status. #? hospital-acquired pneumonia -? recent discharge from the hospital after being managed for influenza -? chest x-ray shows extensive peribronchial coughing and vascular prominence, in the setting of recent hospitalization,? as well as underlying asthma/ COPD will treat patient with IV antibiotics continue cefepime /vanco day2. -? follow cultures -? no evidence of sepsis, patient afebrile, no leukocytosis id eval #? asthma with COPD exacerbation -? patient does not have an official COPD diagnosis but reports that she is a lifelong smoker -? also has underlying asthma -? as significant wheezing, increased sputum production, cough, dyspnea -? will treat with Decadron the setting of? COVID-19 infection, DuoNeb p.r.n. as well as schedule -? monitor respiratory status -? VBG shows no CO2 retention #? possible CHF-etiology unclear ? elevated trop -insetting of covid/pneumonia no chest pain ,no leg edema bnp elevated from baseline -? has evidence of volume overload on chest x-ray-?new New/significantly worsened multifocal airspace opacity most likely multifocal pneumonia.mild congestion strict I&O, daily weight, as well as low-sodium diet sob improving,no leg edema switched to iv Lasix ,will get echo. cardiology eval. #? diabetes with hyperglycemia ( sec to steriods,lasix) fs still hyperglycemia adjusted lantus 45 units and sliding scale insulin -? diabetic diet ?DVT prophylaxis:? Heparin subQ inpatient need for acute hypoxemic respiratory failure-pneumonia /copd excerebation in setting of covid -IV antibiotics, as well as dexamethsone and DuoNebs ,also need cardac workup including echo for possible chf. Time Spent With Patient Time: Total time managing care of this patient today ____ minutes. Quality Stroke Does the patient have a stroke diagnosis?: No VTE Prior VTE?: No VTE Risk Level:: Medical - moderate - high VTE Device Contraindication: Treatment Not Indicated VTE Drug Contraindication: N/A - Med Ordered
[2022-03-16 14:19] LABS: Procalcitonin 0.08 ng/mL
[2022-03-16 16:09] LABS: Glucose, Whole Blood 280 mg/dL (60-115)
[2022-03-16 20:32] LABS: Glucose, Whole Blood 316 mg/dL (60-115)
[2022-03-16] MEDS: Mirtazapine 15 MG TABLET 45 MG PO (20:41)
[2022-03-16] MEDS: Atorvastatin Calcium 10 MG TABLET PO (20:41)
--- NOTE | 2022-03-16 23:13 | W.PM.IDCN ---
History of Present Illness Data of Consult Service Date: 03/16/22 Requesting physician: Edenilson Vallejo Primary Care Provider: Fatuma Sanchez MD HPI Reason for consult: shortness of breath,COVID,multifocal infiltrates She presents with shortness of breath and fever for one day. She has COPD and oxygen here is not needed now as 97% [place] She was hospitalized lately for flu, PMFSH Past Medical History Medical History Asthma Chronic kidney disease (CKD) stage G3b/A1, moderately decreased glomerular filtration rate (GFR) between 30-44 mL/min/1.73 square meter and albuminuria creatinine ratio less than 30 mg/g Diabetes Diabetes HTN (hypertension) Family History Family History Other No family history of coronary artery disease Family history: reviewed and not pertinent Social History Social History Household Members: Significant Other Housing: Apartment Do you presently have visiting nurse or other home services: No Alcohol intake: never Patient Tobacco Use Status: Current everyday Tobacco user Tobacco use type: Cigarette Smoked in Last 30 Days: Yes Patient Interested in Nicotine Replacement: No Patient Given Instructions on How to Stop Smoking: Yes Date Education Initiated: 03/15/22 Second Hand Smoke Exposure: No Use of substances other than those prescribed or required for medical reasons: No Currently Displaying Signs/Symptoms of Drug Intoxication Withdrawal: No Any prior treatment program specific to substance use: No Have you been hit, kicked, punched, or otherwise hurt by someone within the past year? If so, by whom?: No Do you feel safe in your current relationship?: Yes Is there a partner from a previous relationship who is making you feel unsafe now?: No Are you made to feel afraid or neglected: No Advance Directives: No Advance Directives Information Provided: No Advance Directives on File: No Do you have thoughts of harming others: None Do you have a plan to hurt others: No Plan Recently lost weight without trying: No Eating poorly because of decreased appetite: No Nutrition Risks: No Nutritional Risk Patient : No : No Poor oral hygiene: No service: No Current occupational status: disabled Meds Allergies Allergy/AdvReac Type Severity Reaction Status Date / Time lisinopril [From ZESTRIL] Allergy Intermediate [place]OK[place] Verified 02/08/21 05:30 amlodipine Allergy Unknown Verified 02/08/21 05:30 Active Medications: Current Medications Acetaminophen (Acetaminophen 325 Mg Tablet) 650 mg PO Q6H PRN PRN Reason: Pain, Mild (Pain Scale 1-3) Last Admin: 03/16/22 04:14 Dose: 650 mg Al Hydroxide/Mg Hydroxide (Magnesium Hydrox/Alum Hydrox 30 Ml Oral.Susp) 15 ml PO Q4H PRN PRN Reason: heartburn Albuterol/Ipratropium (Albuterol/Iprat 2.5/0.5mg 3 Ml Ampul.Neb) 3 ml INHALE RQ4H PRN PRN Reason: Shortness of Breath/Wheezing Last Admin: 03/16/22 03:08 Dose: 3 ml Albuterol/Ipratropium (Albuterol/Iprat 2.5/0.5mg 3 Ml Ampul.Neb) 3 ml INHALE RQ4H WHILE AWAKE [facility] Last Admin: 03/16/22 20:02 Dose: 3 ml Aspirin (Aspirin Enteric Coated 81 Mg Tablet.) 81 mg PO DAILY [facility] Last Admin: 03/16/22 08:04 Dose: 81 mg Atorvastatin Calcium (Atorvastatin Calcium 10 Mg Tablet) 10 mg PO BEDTIME [facility] Last Admin: 03/16/22 20:41 Dose: 10 mg Dexamethasone Sodium Phosphate (Dexamethasone Sod Phosphate 4 Mg/Ml Vial) 6 mg IVPUSH DAILY [facility] Last Admin: 03/16/22 08:03 Dose: 6 mg Dextrose (Dextrose 50 % 25 Gm/50 Ml Syringe) 25 gm IVPUSH Q15M PRN; Protocol PRN Reason: per Hypoglycemia Standing Ord. Docusate Sodium (Docusate Sodium 100 Mg Capsule) 100 mg PO DAILY PRN PRN Reason: Constipation Ergocalciferol (Ergocalciferol (Vitamin D2) 1,250 Mcg Capsule) 1,250 mcg PO Q7D [facility] Last Admin: 03/15/22 08:25 Dose: 1,250 mcg Furosemide (Furosemide 40 Mg/4 Ml Vial) 40 mg IVPUSH DAILY [facility]; Protocol Glucose (Glucose Gel 15 Gm Gel..Gram.) 15 gm PO Q15M PRN; Protocol PRN Reason: per Hypoglycemia Standing Ord. Heparin Sodium (Porcine) (Heparin Sodium,Porcine 5,000 Unit/Ml Vial) 5,000 unit SUBCUT Q12H [facility] Last Admin: 03/16/22 15:04 Dose: 5,000 unit Cefepime HCl 1 gm/ Sodium (Chloride) 50 mls @ 100 mls/hr IV Q12H [facility] Last Infusion: 03/16/22 19:08 Dose: Infused Vancomycin HCl 1,000 mg/ (Sodium Chloride) 270 mls @ 270 mls/hr IV Q24H [facility] Last Infusion: 03/16/22 12:52 Dose: Infused Insulin Glargine (Insulin Glargine,Hum.Rec.Anlog 100 Unit/Ml 10 Ml Vial) 45 unit SUBCUT DAILY [facility] Insulin Human Lispro (Insulin Lispro 100 Unit/Ml 3 Ml Vial) 0 unit SUBCUT QIDACHS [facility]; Protocol Last Admin: 03/16/22 20:49 Dose: 12 unit Lorazepam (Lorazepam 1 Mg Tablet) 1 mg PO BID PRN PRN Reason: Insomnia Last Admin: 03/16/22 20:44 Dose: 1 mg Metoprolol Succinate (Metoprolol Succinate Er 100 Mg Tab.Er.24h) 100 mg PO DAILY [facility]; Protocol Last Admin: 03/16/22 08:04 Dose: 100 mg Mirtazapine (Mirtazapine 15 Mg Tablet) 45 mg PO BEDTIME [facility] Last Admin: 03/16/22 20:41 Dose: 45 mg Omeprazole (Omeprazole 20 Mg Capsule.Dr) 20 mg PO DAILY@0630 [facility] Last Admin: 03/16/22 05:57 Dose: 20 mg Ondansetron HCl (Ondansetron Hcl 4 Mg/2 Ml Vial) 4 mg IVPUSH Q8H PRN PRN Reason: Nausea and Vomiting Pharmacy Consult (Consult Rx Vancomycin Dosing) 1 each MISCELLANE DAILY PRN PRN Reason: Consult order Sodium Chloride (0.9 % Sodium Chloride Flush 3 Ml Syringe) 3 ml IVFLUSH QSHIFT [facility] Last Admin: 03/16/22 20:47 Dose: 3 ml Valsartan (Valsartan 160 Mg Tablet) 160 mg PO DAILY [facility] Last Admin: 03/16/22 08:04 Dose: 160 mg Zolpidem Tartrate (Zolpidem Tartrate 5 Mg Tablet) 5 mg PO BEDTIME PRN PRN Reason: insomnia Last Admin: 03/16/22 20:44 Dose: 5 mg Home Medications Medication Instructions Recorded Confirmed Last Taken Type blood sugar diagnostic (OneTouch 02/08/21 03/15/22 Unknown History Ultra Test strips) ergocalciferol (vitamin D2) 1,250 1,250 mcg PO QWEEK 02/08/21 03/15/22 03/01/22 History mcg (50,000 unit) capsule insulin glargine 100 unit/mL 36 unit subcut DAILY 02/08/21 03/15/22 03/14/22 History subcutaneous solution (Lantus U-100 Insulin) insulin syringe-needle U-100 1 mL 02/08/21 03/15/22 Unknown History 31 gauge x 08/11 lorazepam 1 mg tablet 1 mg PO BID PRN Insomnia 02/08/21 03/15/22 03/14/22 History mirtazapine 45 mg tablet 45 mg PO BEDTIME 02/08/21 03/15/22 03/14/22 History olmesartan 40 mg tablet 40 mg PO DAILY 02/08/21 03/15/22 03/14/22 History simvastatin 10 mg tablet 10 mg PO BEDTIME 02/08/21 03/15/22 03/14/22 History zolpidem 10 mg tablet 10 mg PO BEDTIME PRN insomnia 02/08/21 03/15/22 03/01/22 History metoprolol succinate 100 mg 100 mg PO DAILY 03/03/22 03/15/22 03/14/22 History tablet,extended release 24 hr omeprazole 20 mg tablet,delayed 20 mg PO DAILY@0630 03/03/22 03/15/22 03/14/22 History release albuterol sulfate 2.5 mg/3 mL 2.5 mg inhalation Q4H PRN 03/15/22 03/15/22 Unknown History (0.083 %) solution for nebulization Shortness Of Breath Or Wheezing albuterol sulfate 90 mcg/actuation 2 puff inhalation Q4H PRN wheezing 03/15/22 03/15/22 Unknown History aerosol inhaler fluticasone propionate 220 2 puff inhalation BID 03/15/22 03/15/22 03/14/22 History mcg/actuation HFA aerosol inhaler (Flovent HFA) pen needle, diabetic 31 gauge x 03/15/22 03/15/22 Unknown History 16 (BD Ultra-Fine Mini Pen Needle) Physical Exam Vital Signs: Vital Signs: Last Vital Signs Temp 97.1 F 03/16/22 19:56 Pulse 73 03/16/22 20:02 Resp 19 03/16/22 20:02 BP 168/74 H 03/16/22 19:56 Pulse Ox 98 03/16/22 19:56 O2 Del Method 03/16/22 19:56 O2 Flow Rate 3 03/16/22 12:00 Oxygen Flow Rate 2 03/14/22 22:37 BMI result Body Mass Index 38.0 Results Labs CBC & Chem 7: 03/15/22 10:08 03/16/22 10:17 Labs: BMP 03/16/22 03/16/22 08:13 10:17 Sodium 136 Potassium 4.5 Chloride 103 Carbon Dioxide 24 BUN 31 H Creatinine 2.01 H 2.04 H Calcium 8.1 L D Microbiology Microbiology Results: Microbiology 03/15/22 00:01 Blood - Venous Blood Culture - Preliminary No growth after 24 hours. 03/15/22 00:01 Blood - Venous Blood Culture - Preliminary No growth after 24 hours. Assessment and Plan (1) Asthma with COPD (chronic obstructive pulmonary disease): Status: Acute (2) Hospital-acquired pneumonia: Status: Acute Agree Cefepime and Vancomycin and stop Vancomycinif MRSA naslal swab negative Cefepime 3-5 days Steroids ok for COPD exacerbation Stop Tamiful as flu positive early month (3) COVID-19 virus infection: Status: Acute Time Spent With Patient Time: Total time managing care of this patient today ____ minutes.
[2022-03-17] VITALS (12 sets, daily range): BP systolic 154–200; BP diastolic 60–92; PULSE 55–89; RESP 16–20; TEMP 36.4–37.2; O2SAT 90–96; BMI 38.4
[2022-03-17] MEDS: Heparin Sodium,Porcine 5,000 UNIT/ML VIAL 5000 UNIT SUBCUT ×2 (00:18→13:03)
[2022-03-17] MEDS: Albuterol/Iprat 2.5/0.5MG 3 ML AMPUL.NEB INHALE ×5 (05:47→20:31)
[2022-03-17] MEDS: cefEPime HCl 1 GM in 0.9 % Sodium Chloride 50 ML IV ×2 (05:47→17:38)
[2022-03-17] MEDS: Omeprazole 20 MG CAPSULE.DR PO (05:47)
[2022-03-17 06:27] LABS: Vancomycin Trough 15.8 mcg/mL (10.0-20.0)
[2022-03-17 06:32] LABS: Creatinine Clr Calc Pharmacy 28.6; Estimated Glomerular Filt Rate 25
--- NOTE | 2022-03-17 06:38 | HE.PHANOTE ---
Vancomycin dosing Patient level is 15.8 today after only 2 doses. Since patient is not yet at steady state and level is expected to continue to rise, will decrease dose to vanco 750 mg Q24H. New expected AUC 479 with a trough of 16.9. next trough 03/17 @ 0600. Reymundo AparicioD
--- NOTE | 2022-03-17 07:00 | CA_ITS ---
Transthoracic Echocardiogram Patient (Last, First, Middle): Cathy Collins, Gender: Female Date of : 1955 Age: 66 Procedure Date: 03/17/2022 Procedure Type: Transthoracic Echocardiogram Location: [facility] [place] Height: 154.94 cm Weight: 91.17 kg BSA: 1.89 m2 Heart Rate: 71 bpm BP: 154 / 64 mmHg Fur Finisher Seamstress: NICOLE Referring MD: Vesna Duncan MD Symptoms: chf Study Quality: Adequate ECG Rhythm: Sinus Conclusions: - The left ventricular systolic function is normal. The visually estimated ejection fraction is between 55-60%. - Evidence suggests grade II (moderate) diastolic dysfunction. - Moderately increased right ventricular cavity size. - No obvious valvular pathology seen on this study. - Small to moderate pericardial effusion. Mainly seen over the right atrium, left ventricle; to some extent also over right ventricle. Findings Left Ventricle Normal left ventricular cavity size. There is mildly increased left ventricular wall thickness. The left ventricular systolic function is normal. The visually estimated ejection fraction is between 55-60%. E/E prime ratio is >15, consistent with elevated filling pressures. Evidence suggests grade II (moderate) diastolic dysfunction. Suboptimal endocardial definition, but no overt wall motion abnormalities. Right Ventricle Moderately increased right ventricular cavity size. There is normal right ventricular systolic function. Atria The left atrium is mildly dilated. The right atrium is normal in size. Aortic Valve There is a normal trileaflet aortic valve. There is no aortic valve stenosis. There is no aortic valve regurgitation. Mitral Valve There is mild mitral annular calcification. There is mild mitral valve regurgitation. There is no mitral valve stenosis. Pulmonic Valve The pulmonic valve is likely normal. Tricuspid Valve Normal tricuspid valve structure. There is trace tricuspid valve regurgitation. There is no evidence of pulmonary hypertension. Great Vessels The asc aorta is normal in size. Venous The inferior vena cava is normal in size and collapses greater than 50% with inspiration. Pericardium/Pleural There is no evidence of pericardial effusion. There are no definitive echocardiographic findings of tamponade physiology. Small to moderate pericardial effusion. Mainly seen over the right atrium, left ventricle; to some extent also over right ventricle. Prior Study Comparison No prior study available for comparison. Recommendations, Care & Conclusions No obvious valvular pathology seen on this study. Measurements 2D Linear Measurements IVSd: 1.26 0.6-0.9/0.6-1.0 cm LVIDd: 5.18 3.9-5.3/4.2-5.9 cm LVIDd Index: 2.74 2.4-3.2/2.2-3.1 cm/m2 LVIDs: 3.63 2.0-3.6 cm LVPWd: 1.14 0.7-1.1 cm LA Diam: 4.40 2.7-3.8/3.0-4.0 cm LAIDs Index: 2.33 1.5-2.3 cm/m2 LV Mass: 308.39 67-162/88-224 g LV Mass Index: 163.17 43-95/49-115 g/m2 LVOT Diam: 2.00 3.0+(-)1.3 cm 2D Systolic Function EF 4C: 54.00 >55% EF 2C: 44.90 >55% EF BiP: 49.50 >55% Mitral Valve MV Pk E: 1.09 MV PK A: 0.80 MV Decel Time: 176.00 E/A: 1.40 E'Lateral: 5.76 E'Medial: 3.89 E/E' Med: 28.00 E/E' Lat: 18.90 PHT: 52.00 MVA PHT: 4.23 Decel [place]: 6.20 Aortic Valve AoV Pk Dez: 1.48 AoV Mn Dez: 1.05 AoV VTI: 0.31 AoV Pk Grad: 9.00 Aov Mn Grad: 5.00 [place] Cont.VTI: 2.38 LVOT LVOT Pk Dez: 1.15 LVOT Mn Dez: 0.78 LVOT VTI: 0.24 LVOT Pk Grad: 5.00 LVOT Mn Grad: 3.00 LVOT Diam: 2.00 LVOT Area: 3.14 Diastolic Function MV Pk E: 1.09 MV Pk A: 0.80 E/A: 1.40 E'Medial: 3.89 E/E' Med: 28.00 E' Laterial: 5.76 E/E' Lat: 18.90 Right Ventricle TAPSE (mm): 18.40 TVS' Dez: 11.90 Tricuspid Valve TR Pk Dez: 2.37 TR Pk Grad: 22.00 RA Press: 3.00 RVSP: 25.00 Great Vessels Aorta Sinus of Valsalva: 3.20 2.0-3.5 cm Ao Asc: 3.20 2.1-3.4 cm Pulmonary Valve PV Pk Dez: 1.39 Peak PV Grad: 8.00 Updated in Other Vendor System with Status of Final David Velasco MD electronically signed on 03/18/2022 5:00:44 PM with status of Final
[2022-03-17 08:40] LABS: Glucose, Whole Blood 239 mg/dL (60-115)
[2022-03-17] MEDS: vancomycin HCL 750 MG in 0.9 % Sodium Chloride 250 ML 265 MG IV (09:08)
[2022-03-17] MEDS: Insulin Glargine,Hum.rec.anlog 100 UNIT/ML 10 ML VIAL 45 UNIT SUBCUT (09:09)
[2022-03-17] MEDS: Insulin Lispro 100 UNIT/ML 3 ML VIAL SUBCUT ×4 (09:10→21:22)
[2022-03-17] MEDS: Furosemide 40 MG/4 ML VIAL IVPUSH (09:10)
[2022-03-17] MEDS: dexAMETHasone sod phosphate 4 MG/ML VIAL 6 MG IVPUSH (09:10)
[2022-03-17] MEDS: Metoprolol Succinate ER 100 MG TAB.ER.24H PO (09:11)
[2022-03-17] MEDS: Valsartan 160 MG TABLET PO (09:11)
[2022-03-17] MEDS: Aspirin Enteric Coated 81 MG TABLET.DR PO (09:11)
[2022-03-17] MEDS: 0.9 % Sodium Chloride Flush 3 ML SYRINGE IVFLUSH ×3 (09:41→21:23)
[2022-03-17 11:20] LABS: Glucose, Whole Blood 217 mg/dL (60-115)
--- NOTE | 2022-03-17 13:44 | P.PNIM_ITS ---
Subjective Subjective Date of Service: 03/17/22 Interval History: feeling cold complaining of mild shortness of breath, tiredness had no bowel movement in last several days, no other acute issues overnight denies fever chills, no headache, no dizziness, no fevers, no chills. Review of Systems Review of Systems: Yes all other systems are reviewed and are negative Physical Exam Vital Signs: Vital Signs: Last Vital Signs Temp 97.7 F 03/17/22 12:00 Pulse 68 03/17/22 12:08 Resp 18 03/17/22 12:08 BP 159/74 H 03/17/22 12:00 Pulse Ox 90 L 03/17/22 12:00 O2 Del Method 03/17/22 12:00 O2 Flow Rate 4 03/17/22 08:00 Oxygen Flow Rate 2 03/14/22 22:37 BMI result Body Mass Index 38.4 Const: Other: General Awake alert,in no acute distress. Neck supple no JVD. CVS regular rate rhythm, Respiratory lungs few basilar crackles, no respiratory distress, no wheeze, no rhonchi. Gastrointestinal abdomen soft, nontender, bowel sounds audible, no guarding , no rigidity. Extremities no edema. Neuro nonfocal Skin no rash psych appropriate affect Objective Data Active Medications Acetaminophen (Acetaminophen 325 Mg Tablet) 650 mg PO Q6H PRN PRN Reason: Pain, Mild (Pain Scale 1-3) Last Admin: 03/16/22 04:14 Dose: 650 mg Documented By: NEVIN Al Hydroxide/Mg Hydroxide (Magnesium Hydrox/Alum Hydrox 30 Ml Oral.Susp) 15 ml PO Q4H PRN PRN Reason: heartburn Albuterol/Ipratropium (Albuterol/Iprat 2.5/0.5mg 3 Ml Ampul.Neb) 3 ml INHALE RQ4H PRN PRN Reason: Shortness of Breath/Wheezing Last Admin: 03/17/22 05:47 Dose: 3 ml Documented By: ZACH Albuterol/Ipratropium (Albuterol/Iprat 2.5/0.5mg 3 Ml Ampul.Neb) 3 ml INHALE RQ4H WHILE AWAKE [facility] Last Admin: 03/17/22 12:07 Dose: 3 ml Documented By: LAN Aspirin (Aspirin Enteric Coated 81 Mg Tablet.Dr) 81 mg PO DAILY [facility] Last Admin: 03/17/22 09:11 Dose: 81 mg Documented By: TERESSA Atorvastatin Calcium (Atorvastatin Calcium 10 Mg Tablet) 10 mg PO BEDTIME [facility] Last Admin: 03/16/22 20:41 Dose: 10 mg Documented By: VITO Dexamethasone Sodium Phosphate (Dexamethasone Sod Phosphate 4 Mg/Ml Vial) 6 mg IVPUSH DAILY [facility] Last Admin: 03/17/22 09:10 Dose: 6 mg Documented By: TERESSA Dextrose (Dextrose 50 % 25 Gm/50 Ml Syringe) 25 gm IVPUSH Q15M PRN; Protocol PRN Reason: per Hypoglycemia Standing Ord. Docusate Sodium (Docusate Sodium 100 Mg Capsule) 100 mg PO DAILY PRN PRN Reason: Constipation Ergocalciferol (Ergocalciferol (Vitamin D2) 1,250 Mcg Capsule) 1,250 mcg PO Q7D [facility] Last Admin: 03/15/22 08:25 Dose: 1,250 mcg Documented By: MOLLY Furosemide (Furosemide 40 Mg/4 Ml Vial) 40 mg IVPUSH DAILY [facility]; Protocol Last Admin: 03/17/22 09:10 Dose: 40 mg Documented By: TERESSA Glucose (Glucose Gel 15 Gm Gel..Gram.) 15 gm PO Q15M PRN; Protocol PRN Reason: per Hypoglycemia Standing Ord. Heparin Sodium (Porcine) (Heparin Sodium,Porcine 5,000 Unit/Ml Vial) 5,000 unit SUBCUT Q12H [facility] Last Admin: 03/17/22 13:03 Dose: 5,000 unit Documented By: TERESSA Cefepime HCl 1 gm/ Sodium (Chloride) 50 mls @ 100 mls/hr IV Q12H [facility] Last Infusion: 03/17/22 06:20 Dose: 0 mls/hr Documented By: NICOLE Vancomycin HCl 750 mg/ Sodium (Chloride) 265 mls @ 265 mls/hr IV Q24H [facility] Last Infusion: 03/17/22 12:27 Dose: 0 mls/hr Documented By: TERESSA Insulin Glargine (Insulin Glargine,Hum.Rec.Anlog 100 Unit/Ml 10 Ml Vial) 45 unit SUBCUT DAILY [facility] Last Admin: 03/17/22 09:09 Dose: 45 unit Documented By: TERESSA Insulin Human Lispro (Insulin Lispro 100 Unit/Ml 3 Ml Vial) 0 unit SUBCUT QIDACHS [facility]; Protocol Last Admin: 03/17/22 13:03 Dose: 4 unit Documented By: TERESSA Lorazepam (Lorazepam 1 Mg Tablet) 1 mg PO BID PRN PRN Reason: Insomnia Last Admin: 03/16/22 20:44 Dose: 1 mg Documented By: VITO Metoprolol Succinate (Metoprolol Succinate Er 100 Mg Tab.Er.24h) 100 mg PO DAILY [facility]; Protocol Last Admin: 03/17/22 09:11 Dose: 100 mg Documented By: TERESSA Mirtazapine (Mirtazapine 15 Mg Tablet) 45 mg PO BEDTIME [facility] Last Admin: 03/16/22 20:41 Dose: 45 mg Documented By: VITO Omeprazole (Omeprazole 20 Mg Capsule.Dr) 20 mg PO DAILY@0630 [facility] Last Admin: 03/17/22 05:47 Dose: 20 mg Documented By: NICOLE Ondansetron HCl (Ondansetron Hcl 4 Mg/2 Ml Vial) 4 mg IVPUSH Q8H PRN PRN Reason: Nausea and Vomiting Pharmacy Consult (Consult Rx Vancomycin Dosing) 1 each MISCELLANE DAILY PRN PRN Reason: Consult order Sodium Chloride (0.9 % Sodium Chloride Flush 3 Ml Syringe) 3 ml IVFLUSH QSHIFT [facility] Last Admin: 03/17/22 09:41 Dose: 3 ml Documented By: TERESSA Valsartan (Valsartan 160 Mg Tablet) 160 mg PO DAILY [facility] Last Admin: 03/17/22 09:11 Dose: 160 mg Documented By: TERESSA Zolpidem Tartrate (Zolpidem Tartrate 5 Mg Tablet) 5 mg PO BEDTIME PRN PRN Reason: insomnia Last Admin: 03/16/22 20:44 Dose: 5 mg Documented By: VITO Labs CBC & Chem 7: 03/15/22 10:08 03/17/22 06:02 Labs: Laboratory Results - last 24 hr 03/16/22 03/16/22 03/16/22 10:17 15:54 20:28 Estim Creat Clear Calc Estimated GFR POC Glucose 280 H 316 H Procalcitonin 0.08 Vancomycin Trough 03/17/22 03/17/22 03/17/22 06:02 06:02 07:11 Estim Creat Clear Calc 28.6 Estimated GFR 25 POC Glucose 239 H Procalcitonin Vancomycin Trough 15.8 03/17/22 11:16 Estim Creat Clear Calc Estimated GFR POC Glucose 217 H Procalcitonin Vancomycin Trough Microbiology Microbiology Results: Microbiology 03/15/22 00:01 Blood Culture - Preliminary Blood - Venous No growth after 48 hours. 03/15/22 00:01 Blood Culture - Preliminary Blood - Venous No growth after 48 hours. Assessment and Plan (1) Acute respiratory failure with hypoxia: Status: Acute (2) Asthma with COPD (chronic obstructive pulmonary disease): Status: Acute (3) Hospital-acquired pneumonia: Status: Acute (4) COVID-19 virus infection: Status: Acute (5) New onset of congestive heart failure: Status: Acute (6) COPD exacerbation: Status: Acute (7) Hyperglycemia due to diabetes mellitus: Status: Acute Plan 66-year-old female with past medical history of asthma, chronic tobacco user with no official diagnosis of COPD but lifelong smoker, presents to the hospital with complaints of shortness of breath after recent discharge from the hospital management of fluid associated? asthma exacerbation #? acute hypoxic respiratory failure -? likely multifactorial in the setting of COPD exacerbation, pneumonia , complicated by COVID-19 infection and CHF monitor respiratory status #? COVID-19 infection -? s/post flu infection 2 weeks ago, continue Decadron,?monitor respiratory status. #? hospital-acquired pneumonia -? patient afebrile with normal WBC, blood cultures negative, chest x-ray 12 19 showed new worsened multifocal airspace opacities likely multifocal pneumonia on cefepime /vanco day 3, seen by ID since MRSA nasal swab negative id recommend 3-5 days of IV cefepime #? asthma with COPD exacerbation -? patient does not have an official COPD diagnosis but reports that she is a lifelong smoker, history of underlying asthma continue iv Decadron in the setting of? COVID-19 infection, DuoNeb p.r.n. as well as schedule -? monitor respiratory status -? VBG shows no CO2 retention #? possible CHF-etiology unclear ? elevated trop -insetting of covid/pneumonia,no chest pain ,no leg edema,bnp elevated from baseline evidence of volume overload on chest x-ray strict I&O, daily weight, as well as low-sodium diet, output shows as greater than 3 L positive cont. iv Lasix ,follow echo, case discussed with Cardiology. # hypertension on multiple antihypertensive, Diovan 160 mg, Toprol-XL 100 mg, and now on Lasix 40 mg IV blood pressure remains elevated follow clinical course #? diabetes with hyperglycemia ( sec to steriods) continue lantus 45 units and sliding scale insulin,? diabetic diet # chronic kidney disease stage IIIB ?DVT prophylaxis:? Heparin subQ inpatient need for acute hypoxemic respiratory failure-pneumonia /copd excerebation and acute congestive heart failure echo pending Time Spent With Patient Time: Total time managing care of this patient today ____ minutes. Quality Stroke Does the patient have a stroke diagnosis?: No VTE Prior VTE?: No VTE Risk Level:: Medical - moderate - high VTE Device Contraindication: Treatment Not Indicated VTE Drug Contraindication: N/A - Med Ordered
[2022-03-17 14:57] LABS: MRSA Nasal PCR NEGATIVE (Negative); SA Nasal PCR NEGATIVE (Negative)
[2022-03-17 16:41] LABS: Glucose, Whole Blood 169 mg/dL (60-115)
[2022-03-17] MEDS: polyethylene glycoL 3350 17 GM POWD.PACK PO (17:38)
[2022-03-17 20:28] LABS: Glucose, Whole Blood 219 mg/dL (60-115)
[2022-03-17] MEDS: LORazepam 1 MG TABLET PO (21:22)
[2022-03-17] MEDS: Mirtazapine 15 MG TABLET 45 MG PO (21:22)
[2022-03-17] MEDS: Zolpidem Tartrate 5 MG TABLET PO (21:22)
[2022-03-17] MEDS: Atorvastatin Calcium 10 MG TABLET PO (21:22)
[2022-03-18] VITALS (9 sets, daily range): BP systolic 139–174; BP diastolic 56–90; PULSE 69–83; RESP 18–20; TEMP 36.5–37.1; O2SAT 91–98; BMI 38.9
[2022-03-18] MEDS: Heparin Sodium,Porcine 5,000 UNIT/ML VIAL 5000 UNIT SUBCUT ×2 (03:04→12:56)
[2022-03-18] MEDS: guaiFENesin 200 MG/10 ML 10 ML LIQUID PO (03:22)
[2022-03-18 06:17] LABS: Hematocrit 30.3 % (37.0-47.0); Hemoglobin 9.6 g/dl (12.0-16.0); Mean Corpuscular HGB Conc 31.7 g/dl (31.0-35.0); Mean Corpuscular Hemoglobin 25.7 pg (27.0-33.0); Mean Corpuscular Volume 81.2 fL (80.0-98.0); Mean Platelet Volume 12.1 fL (9.4-12.3); Platelet Count 155 X10*3/uL (160-400); Red Blood Count 3.73 X10*6/uL (4.20-5.50); Red Cell Distribution Width 15.4 % (11.0-16.0); White Blood Count 8.5 X10*3/uL (4.8-10.8)
[2022-03-18] MEDS: Omeprazole 20 MG CAPSULE.DR PO (06:27)
[2022-03-18 07:00] LABS: Anion Gap 15 (12-20); Blood Urea Nitrogen 44 mg/dL (9-16); Calcium 8.3 mg/dL (8.4-10.2); Carbon Dioxide 30 mmol/L (22-29); Chloride 100 mmol/L (96-108); Creatinine Clr Calc Pharmacy 29.7; Estimated Glomerular Filt Rate 26; Glucose Random 205 mg/dL (60-115); Potassium 4.6 mmol/L (3.3-5.1); Sodium 140 mmol/L (135-145)
[2022-03-18 07:52] LABS: Glucose, Whole Blood 167 mg/dL (60-115)
[2022-03-18] MEDS: cefEPime HCl 1 GM in 0.9 % Sodium Chloride 50 ML IV ×2 (08:29→17:43)
[2022-03-18] MEDS: Furosemide 40 MG/4 ML VIAL IVPUSH (08:31)
[2022-03-18] MEDS: polyethylene glycoL 3350 17 GM POWD.PACK PO (08:31)
[2022-03-18] MEDS: dexAMETHasone sod phosphate 4 MG/ML VIAL 6 MG IVPUSH (08:32)
[2022-03-18] MEDS: LORazepam 1 MG TABLET PO ×2 (08:32→20:09)
[2022-03-18] MEDS: 0.9 % Sodium Chloride Flush 3 ML SYRINGE IVFLUSH ×3 (08:32→20:11)
[2022-03-18] MEDS: Metoprolol Succinate ER 100 MG TAB.ER.24H PO (08:32)
[2022-03-18] MEDS: Aspirin Enteric Coated 81 MG TABLET.DR PO (08:32)
[2022-03-18] MEDS: Valsartan 160 MG TABLET PO (08:32)
[2022-03-18] MEDS: Insulin Glargine,Hum.rec.anlog 100 UNIT/ML 10 ML VIAL 45 UNIT SUBCUT (08:33)
[2022-03-18] MEDS: Insulin Lispro 100 UNIT/ML 3 ML VIAL SUBCUT ×3 (08:33→20:08)
[2022-03-18] MEDS: Albuterol/Iprat 2.5/0.5MG 3 ML AMPUL.NEB INHALE ×3 (08:45→21:05)
--- NOTE | 2022-03-18 08:45 | PC.NURSE ---
Entered pt's room to attend to call [facility] light and noticed pt agitated and anxious. Pt stated she was uncomfortable being in the hospital, and that she does not like feeling cooped up. Attempted to educate pt on importance of hospitalization d/t respiratory status, to which she replied they can send me home with anything I need. Pt then stated she will be leaving AMA tomorrow (03/19/22) and that she will sign herself out in the morning. Offered pt PRN lorazepam to help calm her down, which she accepted. Medication administered, continuing with plan of care. Will make day shift RN aware.
[2022-03-18 11:35] LABS: Glucose, Whole Blood 179 mg/dL (60-115)
--- NOTE | 2022-03-18 11:44 | MHC.CM.PN ---
Per ROUNDS discussion, Patient is not yet medically cleared for dc (IV Cefepime, IV Decadron, IV Lasix); home is the goal and CM will continue to follow.
--- NOTE | 2022-03-18 12:10 | HO.PM.IMPN ---
Subjective Subjective Date of Service: 03/18/22 Interval History: feeling better offers no acute complaints other than cough, denies shortness of breath, no chest pain denies nausea ,vomiting, abdominal pain, is constipated no bowel movement since admit, denies headache lightheadedness or dizziness, Review of Systems Review of Systems: Yes all other systems are reviewed and are negative Physical Exam Vital Signs: Vital Signs: Last Vital Signs Temp 98.5 F 03/18/22 11:20 Pulse 76 03/18/22 11:20 Resp 18 03/18/22 11:20 BP 172/63 H 03/18/22 11:20 Pulse Ox 91 L 03/18/22 11:20 O2 Del Method 03/18/22 11:20 O2 Flow Rate 3 03/18/22 11:20 Oxygen Flow Rate 2 03/14/22 22:37 BMI result Body Mass Index 38.9 Const: Other: General ? Awake al ert,in no acute di stress.? Neck supp le no JVD. CVS? re gular rate rhythm, Respiratory lungs ? rhonchi , no res piratory distress, no wheeze, Gastro intestinal abdomen soft, nontender, bowel sounds audib le,? no guarding , no rigidity. Extr emities no? edema. Neuro nonfocal Sk in no rash psych a ppropriate affect Objective Data Active Medications Acetaminophen (Acetaminophen 325 Mg Tablet) 650 mg PO Q6H PRN PRN Reason: Pain, Mild (Pain Scale 1-3) Last Admin: 03/16/22 04:14 Dose: 650 mg Documented By: NEVIN Al Hydroxide/Mg Hydroxide (Magnesium Hydrox/Alum Hydrox 30 Ml Oral.Susp) 15 ml PO Q4H PRN PRN Reason: heartburn Albuterol/Ipratropium (Albuterol/Iprat 2.5/0.5mg 3 Ml Ampul.Neb) 3 ml INHALE RQ4H PRN PRN Reason: Shortness of Breath/Wheezing Last Admin: 03/17/22 05:47 Dose: 3 ml Documented By: ZACH Albuterol/Ipratropium (Albuterol/Iprat 2.5/0.5mg 3 Ml Ampul.Neb) 3 ml INHALE RQ4H WHILE AWAKE [facility] Last Admin: 03/18/22 08:45 Dose: 3 ml Documented By: LAN Aspirin (Aspirin Enteric Coated 81 Mg Alyssa.) 81 mg PO DAILY [facility] Last Admin: 03/18/22 08:32 Dose: 81 mg Documented By: TRACI Atorvastatin Calcium (Atorvastatin Calcium 10 Mg Tablet) 10 mg PO BEDTIME [facility] Last Admin: 03/17/22 21:22 Dose: 10 mg Documented By: MARILYN Dexamethasone Sodium Phosphate (Dexamethasone Sod Phosphate 4 Mg/Ml Vial) 6 mg IVPUSH DAILY [facility] Last Admin: 03/18/22 08:32 Dose: 6 mg Documented By: TRACI Dextrose (Dextrose 50 % 25 Gm/50 Ml Syringe) 25 gm IVPUSH Q15M PRN; Protocol PRN Reason: per Hypoglycemia Standing Ord. Docusate Sodium (Docusate Sodium 100 Mg Capsule) 100 mg PO DAILY PRN PRN Reason: Constipation Ergocalciferol (Ergocalciferol (Vitamin D2) 1,250 Mcg Capsule) 1,250 mcg PO Q7D [facility] Last Admin: 03/15/22 08:25 Dose: 1,250 mcg Documented By: MOLLY Furosemide (Furosemide 40 Mg/4 Ml Vial) 40 mg IVPUSH DAILY [facility]; Protocol Last Admin: 03/18/22 08:31 Dose: 40 mg Documented By: TRACI Glucose (Glucose Gel 15 Gm Gel..Gram.) 15 gm PO Q15M PRN; Protocol PRN Reason: per Hypoglycemia Standing Ord. Guaifenesin (Guaifenesin 200 Mg/10 Ml 10 Ml Liquid) 10 ml PO Q4H PRN PRN Reason: cough Last Admin: 03/18/22 03:22 Dose: 10 ml Documented By: MARILYN Heparin Sodium (Porcine) (Heparin Sodium,Porcine 5,000 Unit/Ml Vial) 5,000 unit SUBCUT Q12H [facility] Last Admin: 03/18/22 03:04 Dose: 5,000 unit Documented By: MARILYN Cefepime HCl 1 gm/ Sodium (Chloride) 50 mls @ 100 mls/hr IV Q12H [facility] Last Infusion: 03/18/22 09:29 Dose: 0 mls/hr Documented By: TRACI Insulin Glargine (Insulin Glargine,Hum.Rec.Anlog 100 Unit/Ml 10 Ml Vial) 45 unit SUBCUT DAILY [facility] Last Admin: 03/18/22 08:33 Dose: 45 unit Documented By: TRACI Insulin Human Lispro (Insulin Lispro 100 Unit/Ml 3 Ml Vial) 0 unit SUBCUT QIDACHS [facility]; Protocol Last Admin: 03/18/22 08:33 Dose: 2 unit Documented By: TRACI Lorazepam (Lorazepam 1 Mg Tablet) 1 mg PO BID PRN PRN Reason: Insomnia Last Admin: 03/18/22 08:32 Dose: 1 mg Documented By: TRACI Metoprolol Succinate (Metoprolol Succinate Er 100 Mg Tab.Er.24h) 100 mg PO DAILY [facility]; Protocol Last Admin: 03/18/22 08:32 Dose: 100 mg Documented By: TRACI Mirtazapine (Mirtazapine 15 Mg Tablet) 45 mg PO BEDTIME [facility] Last Admin: 03/17/22 21:22 Dose: 45 mg Documented By: MARILYN Omeprazole (Omeprazole 20 Mg Capsule.Dr) 20 mg PO DAILY@0630 [facility] Last Admin: 03/18/22 06:27 Dose: 20 mg Documented By: MARILYN Ondansetron HCl (Ondansetron Hcl 4 Mg/2 Ml Vial) 4 mg IVPUSH Q8H PRN PRN Reason: Nausea and Vomiting Polyethylene Glycol (Polyethylene Glycol 3350 17 Gm Powd.Pack) 17 gm PO DAILY [facility] Last Admin: 03/18/22 08:31 Dose: 17 gm Documented By: TRACI Sodium Chloride (0.9 % Sodium Chloride Flush 3 Ml Syringe) 3 ml IVFLUSH [facility] Last Admin: 03/18/22 08:32 Dose: 3 ml Documented By: TRACI Valsartan (Valsartan 160 Mg Tablet) 160 mg PO DAILY [facility] Last Admin: 03/18/22 08:32 Dose: 160 mg Documented By: TRACI Zolpidem Tartrate (Zolpidem Tartrate 5 Mg Tablet) 5 mg PO BEDTIME PRN PRN Reason: insomnia Last Admin: 03/17/22 21:22 Dose: 5 mg Documented By: MARILYN Labs CBC & Chem 7: 03/18/22 05:58 03/18/22 05:58 Labs: Laboratory Results - last 24 hr 03/17/22 03/17/22 03/17/22 13:20 16:37 20:25 MCV MCH MCHC RDW Plt Count MPV Absolute Nucleated RBC Nucleated RBC % (auto) Anion Gap Estim Creat Clear Calc Estimated GFR POC Glucose 169 H 219 H Random Glucose Calcium Nasal Screen MRSA (PCR) NEGATIVE Nasal S. aureus Screen NEGATIVE Nasal MRSA/S.aureus Interp SEE NOTE 03/18/22 03/18/22 03/18/22 05:58 05:58 07:47 MCV 81.2 MCH 25.7 L MCHC 31.7 RDW 15.4 Plt Count 155 L MPV 12.1 Absolute Nucleated RBC 0.000 Nucleated RBC % (auto) 0.0 Anion Gap 15 Estim Creat Clear Calc 29.7 Estimated GFR 26 POC Glucose 167 H Random Glucose 205 H Calcium 8.3 L Nasal Screen MRSA (PCR) Nasal S. aureus Screen Nasal MRSA/S.aureus Interp 03/18/22 11:22 MCV MCH MCHC RDW Plt Count MPV Absolute Nucleated RBC Nucleated RBC % (auto) Anion Gap Estim Creat Clear Calc Estimated GFR POC Glucose 179 H Random Glucose Calcium Nasal Screen MRSA (PCR) Nasal S. aureus Screen Nasal MRSA/S.aureus Interp Assessment and Plan (1) Acute respiratory failure with hypoxia: Status: Acute (2) Asthma with COPD (chronic obstructive pulmonary disease): Status: Acute (3) Hospital-acquired pneumonia: Status: Acute (4) COVID-19 virus infection: Status: Acute (5) New onset of congestive heart failure: Status: Acute (6) COPD exacerbation: Status: Acute (7) Hyperglycemia due to diabetes mellitus: Status: Acute Plan 66-year-old female with past medical history of asthma, chronic tobacco user with no official diagnosis of COPD but lifelong smoker, presents to the hospital with complaints of shortness of breath after recent discharge from the hospital management of fluid associated? asthma exacerbation #? acute hypoxic respiratory failure -? likely multifactorial in the setting of COPD exacerbation, pneumonia , complicated by COVID-19 infection and CHF feeling better this morning oxygenation dropped to 2 L by nasal cannula finger oximetry 91%, continue to monitor respiratory status #? COVID-19 infection -? s/post flu infection 2 weeks ago, continue iv Decadron day 07/06,?monitor respiratory status. #? hospital-acquired pneumonia -? patient afebrile with normal WBC, blood cultures negative, chest x-ray showed new worsening multifocal airspace opacities likely multifocal pneumonia on cefepime day 4/5, seen by ID since MRSA nasal swab negative vancomycin discontinued id recommend 3-5 days of IV cefepime #? asthma with COPD exacerbation -? patient does not have an official COPD diagnosis but reports that she is a lifelong smoker, history of underlying asthma continue iv Decadron in the setting of? COVID-19 infection, DuoNeb p.r.n. and schedule, add cough medication -? monitor respiratory status -? VBG shows no CO2 retention #? possible CHF-etiology unclear, appears euvolemic today ? elevated trop -insetting of covid/pneumonia,no chest pain ,no leg edema,bnp elevated from baseline evidence of volume overload on chest x-ray strict I&O, daily weight, as well as low-sodium diet, output shows as greater than 3 L positive on iv Lasix ,follow echo report pending, follow BNP, will discuss continued use of IV diuretics with Cardiology. # hypertension on multiple antihypertensive, Diovan 160 mg, Toprol-XL 100 mg, and now on Lasix 40 mg IV, blood pressure remains elevated will add low-dose Norvasc #? diabetes with hyperglycemia ( sec to steriods) continue lantus 45 units and sliding scale insulin,? diabetic diet # chronic kidney disease stage IIIB # hyperlipidemia continue statins # constipation added MiraLax with no affect will give lactulose x1 ?DVT prophylaxis:? Heparin subQ inpatient need for acute hypoxemic respiratory failure-pneumonia /copd excerebation and acute congestive heart failure echo pending Time Spent With Patient Time: Total time managing care of this patient today ____ minutes. Quality Stroke Does the patient have a stroke diagnosis?: No VTE Prior VTE?: No VTE Risk Level:: Medical - moderate - high VTE Device Contraindication: Treatment Not Indicated VTE Drug Contraindication: N/A - Med Ordered
[2022-03-18] MEDS: amLODIPine Besylate 5 MG TABLET PO (12:56)
[2022-03-18] MEDS: Lactulose 20 GM/30 ML SOLUTION 15 GM PO (12:56)
--- NOTE | 2022-03-18 14:36 | P.CDIC_ITS ---
CDI Concurrent Query Documentation Clarification: PHYSICIAN'S DOCUMENTATION REQUEST Date of Query: 03/18/22 1436 Patient Name: Cathy Collins Admit Date: 03/15/22 Dear Doctor, A review of the medical record indicates additional documentation may be needed. Please review below and update the documentation accordingly. Clinical Indicators: Is there a diagnosis that correlates with the findings below: Risk Factors/Clinical Indicators/Treatments BMI: 38.9 Height: 5ft 1in Weight: 93.4kg Per RN shift assessments: Abdomen large, obese, round If possible, please provide an associated diagnosis related to the abnormal BMI, such as: BMI: * Severe or Morbid Obesity * Overweight * Obesity * Due to excess calories * Drug induced * Due to other cause * With alveolar hypoventilation * Without alveolar hypoventilation Or: * BMI is not significant * Other (please specify) * Unable to determine Use of terms such as suspected, likely, concern for, or probable (associated with a specific diagnosis that is being evaluated, monitored, or treated as if it exists) are acceptable and can be coded in the inpatient setting, when documented at the time of discharge. Thank you, Elma Dangelo MS, RN, CCRN Extension: [phone] Please use your independent medical judgment in providing your response. THIS QUERY IS PART OF THE PERMANENT MEDICAL RECORD Provider Response: Other Other Diagnosis: obesity due to excess calories
[2022-03-18] MEDS: guaiFENesin DM 100/10/5 ML 5 ML SYRUP 10 ML PO ×2 (16:05→20:08)
[2022-03-18 16:17] LABS: Glucose, Whole Blood 150 mg/dL (60-115)
[2022-03-18 19:50] LABS: Glucose, Whole Blood 266 mg/dL (60-115)
[2022-03-18] MEDS: Mirtazapine 15 MG TABLET 45 MG PO (20:09)
[2022-03-18] MEDS: Zolpidem Tartrate 5 MG TABLET PO (20:09)
[2022-03-18] MEDS: Atorvastatin Calcium 10 MG TABLET PO (20:09)
[2022-03-19] VITALS (8 sets, daily range): BP systolic 140–186; BP diastolic 76–87; PULSE 60–80; RESP 17–20; TEMP 36.2–36.9; O2SAT 92–98
--- NOTE | 2022-03-19 04:30 | PC.NURSE ---
At approx 0400, pt found to be very confused, on telephone with family member disoriented to place and time, changed from previous assessment (A&Ox4). Noncompliant with oxygen, took a while getting her O2 sats back to WNL. Achieved 90% on 4LNC. MD aware. ABG's ordered. Will continue with plan of care.
[2022-03-19 05:16] LABS: ABG Base Excess 5.9 mmol/L; ABG HCO3 29 mmol/L (22-26); ABG pCO2 38 mmHg (32-45); ABG pH 7.49 (7.35-7.45); ABG pO2 73 mmHg (83-108)
[2022-03-19 06:32] LABS: Hematocrit 31.8 % (37.0-47.0); Hemoglobin 10.1 g/dl (12.0-16.0); Mean Corpuscular HGB Conc 31.8 g/dl (31.0-35.0); Mean Corpuscular Hemoglobin 25.3 pg (27.0-33.0); Mean Corpuscular Volume 79.7 fL (80.0-98.0); Mean Platelet Volume 11.6 fL (9.4-12.3); Platelet Count 232 X10*3/uL (160-400); Red Blood Count 3.99 X10*6/uL (4.20-5.50); White Blood Count 11.9 X10*3/uL (4.8-10.8)
[2022-03-19] MEDS: cefEPime HCl 1 GM in 0.9 % Sodium Chloride 50 ML IV (06:32)
[2022-03-19] MEDS: Omeprazole 20 MG CAPSULE.DR PO (06:32)
[2022-03-19 06:39] LABS: Glucose, Whole Blood 130 mg/dL (60-115)
[2022-03-19 07:01] LABS: Anion Gap 17 (12-20); Blood Urea Nitrogen 50 mg/dL (9-16); Calcium 8.6 mg/dL (8.4-10.2); Carbon Dioxide 30 mmol/L (22-29); Chloride 97 mmol/L (96-108); Creatinine Clr Calc Pharmacy 29.1; Estimated Glomerular Filt Rate 25; Glucose Random 140 mg/dL (60-115); Potassium 4.5 mmol/L (3.3-5.1); Sodium 139 mmol/L (135-145)
[2022-03-19 07:07] LABS: B Type Natriuretic Peptide 268 pg/mL (<100)
[2022-03-19 07:26] LABS: Glucose, Whole Blood 117 mg/dL (60-115)
[2022-03-19] MEDS: Albuterol/Iprat 2.5/0.5MG 3 ML AMPUL.NEB INHALE ×2 (08:00→12:24)
[2022-03-19] MEDS: dexAMETHasone sod phosphate 4 MG/ML VIAL 6 MG IVPUSH (08:24)
[2022-03-19] MEDS: Furosemide 40 MG/4 ML VIAL IVPUSH ×2 (08:24→17:02)
[2022-03-19] MEDS: guaiFENesin DM 100/10/5 ML 5 ML SYRUP 10 ML PO ×3 (08:24→21:25)
[2022-03-19] MEDS: Metoprolol Succinate ER 100 MG TAB.ER.24H PO (08:24)
[2022-03-19] MEDS: Aspirin Enteric Coated 81 MG TABLET.DR PO (08:25)
[2022-03-19] MEDS: Insulin Glargine,Hum.rec.anlog 100 UNIT/ML 10 ML VIAL 45 UNIT SUBCUT (08:25)
[2022-03-19] MEDS: amLODIPine Besylate 5 MG TABLET PO (08:25)
[2022-03-19] MEDS: polyethylene glycoL 3350 17 GM POWD.PACK PO (08:25)
[2022-03-19] MEDS: Valsartan 160 MG TABLET PO (08:25)
[2022-03-19] MEDS: 0.9 % Sodium Chloride Flush 3 ML SYRINGE IVFLUSH ×3 (08:26→21:25)
[2022-03-19 11:05] LABS: ABG Refer to POC result
[2022-03-19 11:28] LABS: Glucose, Whole Blood 269 mg/dL (60-115)
[2022-03-19] MEDS: Insulin Lispro 100 UNIT/ML 3 ML VIAL SUBCUT ×3 (12:14→21:25)
--- NOTE | 2022-03-19 13:18 | HO.PM.IMPN ---
Subjective Subjective Date of Service: 03/19/22 Interval History: cc: sob interval history:improving Cardiovascular Cardiovascular: Reports no additional cardiovascular complaints Respiratory Respiratory: Reports no additional respiratory complaints Physical Exam Vital Signs: Vital Signs: Last Vital Signs Temp 98.2 F 03/19/22 11:16 Pulse 74 03/19/22 12:25 Resp 18 03/19/22 12:25 BP 147/76 H 03/19/22 11:16 Pulse Ox 94 03/19/22 11:16 O2 Del Method 03/19/22 11:16 O2 Flow Rate 4 03/19/22 11:16 Oxygen Flow Rate 2 03/14/22 22:37 BMI result Body Mass Index 38.9 Const: Other: General ? Awake al ert,in no acute di stress.? Neck supp le no JVD. CVS? re gular rate rhythm, Respiratory lungs ? rhonchi , no res piratory distress, no wheeze, Gastro intestinal abdomen soft, nontender, bowel sounds audib le,? no guarding , no rigidity. Extr emities no? edema. Neuro nonfocal Sk in no rash psych a ppropriate affect Objective Data Active Medications Acetaminophen (Acetaminophen 325 Mg Tablet) 650 mg PO Q6H PRN PRN Reason: Pain, Mild (Pain Scale 1-3) Last Admin: 03/16/22 04:14 Dose: 650 mg Documented By: NEVIN Al Hydroxide/Mg Hydroxide (Magnesium Hydrox/Alum Hydrox 30 Ml Oral.Susp) 15 ml PO Q4H PRN PRN Reason: heartburn Albuterol/Ipratropium (Albuterol/Iprat 2.5/0.5mg 3 Ml Ampul.Neb) 3 ml INHALE RQ4H PRN PRN Reason: Shortness of Breath/Wheezing Last Admin: 03/17/22 05:47 Dose: 3 ml Documented By: ZACH Albuterol/Ipratropium (Albuterol/Iprat 2.5/0.5mg 3 Ml Ampul.Neb) 3 ml INHALE RQ4H WHILE AWAKE [facility] Last Admin: 03/19/22 12:24 Dose: 3 ml Documented By: ROBERTO Amlodipine Besylate (Amlodipine Besylate 5 Mg Tablet) 5 mg PO DAILY [facility]; Protocol Last Admin: 03/19/22 08:25 Dose: 5 mg Documented By: MALIA Aspirin (Aspirin Enteric Coated 81 Mg Tablet.) 81 mg PO DAILY [facility] Last Admin: 03/19/22 08:25 Dose: 81 mg Documented By: MALIA Atorvastatin Calcium (Atorvastatin Calcium 10 Mg Tablet) 10 mg PO BEDTIME [facility] Last Admin: 03/18/22 20:09 Dose: 10 mg Documented By: MARILYN Dexamethasone Sodium Phosphate (Dexamethasone Sod Phosphate 4 Mg/Ml Vial) 6 mg IVPUSH DAILY [facility] Last Admin: 03/19/22 08:24 Dose: 6 mg Documented By: MALIA Dextrose (Dextrose 50 % 25 Gm/50 Ml Syringe) 25 gm IVPUSH Q15M PRN; Protocol PRN Reason: per Hypoglycemia Standing Ord. Docusate Sodium (Docusate Sodium 100 Mg Capsule) 100 mg PO DAILY PRN PRN Reason: Constipation Ergocalciferol (Ergocalciferol (Vitamin D2) 1,250 Mcg Capsule) 1,250 mcg PO Q7D [facility] Last Admin: 03/15/22 08:25 Dose: 1,250 mcg Documented By: MOLLY Furosemide (Furosemide 40 Mg/4 Ml Vial) 40 mg IVPUSH DAILY [facility]; Protocol Last Admin: 03/19/22 08:24 Dose: 40 mg Documented By: MALIA Glucose (Glucose Gel 15 Gm Gel..Gram.) 15 gm PO Q15M PRN; Protocol PRN Reason: per Hypoglycemia Standing Ord. Guaifenesin (Guaifenesin 200 Mg/10 Ml 10 Ml Liquid) 10 ml PO Q4H PRN PRN Reason: cough Last Admin: 03/18/22 03:22 Dose: 10 ml Documented By: MARILYN Guaifenesin/Dextromethorphan (Guaifenesin Dm 100/10/5 Ml 5 Ml Syrup) 10 ml PO TID [facility] Last Admin: 03/19/22 08:24 Dose: 10 ml Documented By: MALIA Heparin Sodium (Porcine) (Heparin Sodium,Porcine 5,000 Unit/Ml Vial) 5,000 unit SUBCUT Q12H [facility] Last Admin: 03/19/22 02:30 Dose: Not Given Documented By: MARILYN Non-Admin Reason: Patient Refused Cefepime HCl 1 gm/ Sodium (Chloride) 50 mls @ 100 mls/hr IV Q12H [facility] Last Infusion: 03/19/22 08:10 Dose: 0 mls/hr Documented By: MALIA Insulin Glargine (Insulin Glargine,Hum.Rec.Anlog 100 Unit/Ml 10 Ml Vial) 45 unit SUBCUT DAILY [facility] Last Admin: 03/19/22 08:25 Dose: 45 unit Documented By: MALIA Insulin Human Lispro (Insulin Lispro 100 Unit/Ml 3 Ml Vial) 0 unit SUBCUT QIDACHS [facility]; Protocol Last Admin: 03/19/22 12:14 Dose: 8 unit Documented By: MALIA Lorazepam (Lorazepam 1 Mg Tablet) 1 mg PO BID PRN PRN Reason: Insomnia Last Admin: 03/18/22 20:09 Dose: 1 mg Documented By: MARILYN Metoprolol Succinate (Metoprolol Succinate Er 100 Mg Tab.Er.24h) 100 mg PO DAILY [facility]; Protocol Last Admin: 03/19/22 08:24 Dose: 100 mg Documented By: MALIA Mirtazapine (Mirtazapine 15 Mg Tablet) 45 mg PO BEDTIME [facility] Last Admin: 03/18/22 20:09 Dose: 45 mg Documented By: MARILYN Omeprazole (Omeprazole 20 Mg Capsule.Dr) 20 mg PO DAILY@0630 [facility] Last Admin: 03/19/22 06:32 Dose: 20 mg Documented By: MARILYN Ondansetron HCl (Ondansetron Hcl 4 Mg/2 Ml Vial) 4 mg IVPUSH Q8H PRN PRN Reason: Nausea and Vomiting Polyethylene Glycol (Polyethylene Glycol 3350 17 Gm Powd.Pack) 17 gm PO DAILY [facility] Last Admin: 03/19/22 08:25 Dose: 17 gm Documented By: MALIA Sodium Chloride (0.9 % Sodium Chloride Flush 3 Ml Syringe) [facility] Last Admin: 03/19/22 08:26 Dose: 3 ml Documented By: MALIA Valsartan (Valsartan 160 Mg Tablet) 160 mg PO DAILY [facility] Last Admin: 03/19/22 08:25 Dose: 160 mg Documented By: MALIA Zolpidem Tartrate (Zolpidem Tartrate 5 Mg Tablet) 5 mg PO BEDTIME PRN PRN Reason: insomnia Last Admin: 03/18/22 20:09 Dose: 5 mg Documented By: MARILYN Labs CBC & Chem 7: 03/19/22 06:10 03/19/22 06:10 Labs: Laboratory Results - last 24 hr 03/18/22 03/18/22 03/19/22 16:12 19:46 05:07 MCV MCH MCHC RDW Plt Count MPV Absolute Nucleated RBC Nucleated RBC % (auto) O2 Saturation 93.0 ABG pH at Pt Temp 7.49 H ABG pCO2 at Pt Temp 38 ABG pO2 at Pt Temp 73 L ABG HCO3 29 H ABG Base Excess (Actual) 5.9 Anion Gap Estim Creat Clear Calc Estimated GFR POC Glucose 150 H 266 H Random Glucose Calcium B-Natriuretic Peptide Random Vancomycin 03/19/22 03/19/22 03/19/22 06:10 06:10 06:10 MCV 79.7 L MCH 25.3 L MCHC 31.8 RDW 15.0 Plt Count 232 D MPV 11.6 Absolute Nucleated RBC 0.000 Nucleated RBC % (auto) 0.0 O2 Saturation ABG pH at Pt Temp ABG pCO2 at Pt Temp ABG pO2 at Pt Temp ABG HCO3 ABG Base Excess (Actual) Anion Gap 17 Estim Creat Clear Calc 29.1 Estimated GFR 25 POC Glucose Random Glucose 140 H Calcium 8.6 B-Natriuretic Peptide 268 H Random Vancomycin 03/19/22 03/19/22 03/19/22 06:10 06:31 07:16 MCV MCH MCHC RDW Plt Count MPV Absolute Nucleated RBC Nucleated RBC % (auto) O2 Saturation ABG pH at Pt Temp ABG pCO2 at Pt Temp ABG pO2 at Pt Temp ABG HCO3 ABG Base Excess (Actual) Anion Gap Estim Creat Clear Calc Estimated GFR POC Glucose 130 H 117 H Random Glucose Calcium B-Natriuretic Peptide Random Vancomycin 10.0 L 03/19/22 11:19 MCV MCH MCHC RDW Plt Count MPV Absolute Nucleated RBC Nucleated RBC % (auto) O2 Saturation ABG pH at Pt Temp ABG pCO2 at Pt Temp ABG pO2 at Pt Temp ABG HCO3 ABG Base Excess (Actual) Anion Gap Estim Creat Clear Calc Estimated GFR POC Glucose 269 H Random Glucose Calcium B-Natriuretic Peptide Random Vancomycin Assessment and Plan (1) Acute respiratory failure with hypoxia: Status: Acute (2) Asthma with COPD (chronic obstructive pulmonary disease): Status: Acute (3) Hospital-acquired pneumonia: Status: Acute (4) COVID-19 virus infection: Status: Acute (5) New onset of congestive heart failure: Status: Acute (6) COPD exacerbation: Status: Acute (7) Hyperglycemia due to diabetes mellitus: Status: Acute Plan 66-year-old female with past medical history of moderate pesistent asthma, chronic tobacco user with no official diagnosis of COPD but lifelong smoker, presented to the hospital with complaints of shortness of breath after recent discharge from the hospital management of flu associated? asthma exacerbation acute hypoxic respiratory failure due to moderate persistent asthma/copd with acute decompensation due to covid 19 and acute on chronic diastolic chf continue decadron, bronchodilators, increase lasix to 40mg iv bid monitor bmp wean o2 as toelrated doubt bacterial pna, will dc abx hypertension on multiple antihypertensive, Diovan 160 mg, Toprol-XL 100 mg, added low-dose Norvasc diabetes with hyperglycemia ( sec to steriods) continue lantus 45 units and sliding scale insulin,? diabetic diet chronic kidney disease stage IIIB stable hyperlipidemia continue statins ?DVT prophylaxis:? Heparin subQ reason for continued hospitalization:ongoing iv diuresis, hypoxia Time Spent With Patient Time: Total time managing care of this patient today ____ minutes. Quality Stroke Does the patient have a stroke diagnosis?: No VTE Prior VTE?: No VTE Risk Level:: Medical - moderate - high VTE Device Contraindication: Treatment Not Indicated VTE Drug Contraindication: N/A - Med Ordered
[2022-03-19] MEDS: Heparin Sodium,Porcine 5,000 UNIT/ML VIAL 5000 UNIT SUBCUT (14:50)
[2022-03-19] MEDS: Mirtazapine 15 MG TABLET 45 MG PO (21:24)
[2022-03-19] MEDS: Atorvastatin Calcium 10 MG TABLET PO (21:24)
[2022-03-20] VITALS (9 sets, daily range): BP systolic 149–177; BP diastolic 65–98; PULSE 57–78; RESP 16–20; TEMP 35.9–36.4; O2SAT 91–100
[2022-03-20] MEDS: Heparin Sodium,Porcine 5,000 UNIT/ML VIAL 5000 UNIT SUBCUT ×2 (01:17→13:42)
[2022-03-20] MEDS: Omeprazole 20 MG CAPSULE.DR PO (05:59)
[2022-03-20 06:57] LABS: Hemoglobin 9.8 g/dl (12.0-16.0); Mean Corpuscular HGB Conc 31.6 g/dl (31.0-35.0); Mean Corpuscular Volume 79.1 fL (80.0-98.0); Mean Platelet Volume 11.6 fL (9.4-12.3); Platelet Count 223 X10*3/uL (160-400); Red Blood Count 3.92 X10*6/uL (4.20-5.50); Red Cell Distribution Width 14.9 % (11.0-16.0); White Blood Count 6.8 X10*3/uL (4.8-10.8)
[2022-03-20 07:10] LABS: Anion Gap 13 (12-20); Blood Urea Nitrogen 63 mg/dL (9-16); Calcium 8.5 mg/dL (8.4-10.2); Carbon Dioxide 33 mmol/L (22-29); Chloride 96 mmol/L (96-108); Creatinine Clr Calc Pharmacy 28.6; Estimated Glomerular Filt Rate 25; Glucose Fasting 207 mg/dL (60-99); Potassium 4.2 mmol/L (3.3-5.1); Sodium 138 mmol/L (135-145)
[2022-03-20] MEDS: Albuterol/Iprat 2.5/0.5MG 3 ML AMPUL.NEB INHALE ×3 (07:50→15:20)
[2022-03-20] MEDS: dexAMETHasone sod phosphate 4 MG/ML VIAL 6 MG IVPUSH (08:00)
[2022-03-20] MEDS: Furosemide 40 MG/4 ML VIAL IVPUSH (08:00)
[2022-03-20] MEDS: amLODIPine Besylate 5 MG TABLET PO (08:01)
[2022-03-20] MEDS: polyethylene glycoL 3350 17 GM POWD.PACK PO (08:01)
[2022-03-20] MEDS: guaiFENesin DM 100/10/5 ML 5 ML SYRUP 10 ML PO ×2 (08:01→16:25)
[2022-03-20] MEDS: Aspirin Enteric Coated 81 MG TABLET.DR PO (08:01)
[2022-03-20] MEDS: Valsartan 160 MG TABLET PO (08:01)
[2022-03-20] MEDS: Insulin Glargine,Hum.rec.anlog 100 UNIT/ML 10 ML VIAL 45 UNIT SUBCUT (08:02)
[2022-03-20] MEDS: Insulin Lispro 100 UNIT/ML 3 ML VIAL SUBCUT ×4 (08:02→21:10)
[2022-03-20] MEDS: 0.9 % Sodium Chloride Flush 3 ML SYRINGE IVFLUSH ×3 (08:03→21:14)
[2022-03-20] MEDS: Metoprolol Succinate ER 100 MG TAB.ER.24H PO (08:04)
--- NOTE | 2022-03-20 09:50 | PM.PNCARD ---
Subjective Subjective Date of Service: 03/20/22 Interval history: Patient seen examined at bedside. clinically improving. Still hypoxic. Laying flat in bed. Physical Exam Vital Signs: Last Vital Signs Temp 97.2 F 03/20/22 07:13 Pulse 78 03/20/22 07:50 Resp 18 03/20/22 07:50 BP 158/69 H 03/20/22 07:13 Pulse Ox 96 03/20/22 04:00 O2 Del Method 03/20/22 04:00 O2 Flow Rate 4 03/20/22 04:00 Oxygen Flow Rate 2 03/14/22 22:37 BMI result Body Mass Index 38.9 GENERAL APPEARANCE: Short of breath. On supplemental oxygen. NECK: no carotid bruit, mild jugular venous distention. SKIN: no suspicious lesions, warm and dry. HEART: no murmurs, regular rate and rhythm. LUNGS: Crackles at bases. ABDOMEN: soft, nontender. EXTREMITIES: Trace edema bilateral. PERIPHERAL PULSES: equal. NEUROLOGIC: No gross deficits, AAO X 3 Objective Labs and Meds Result diagrams: 03/20/22 06:40 03/20/22 06:40 Lab results: Laboratory Results - last 24 hr 03/19/22 03/19/22 03/19/22 11:19 15:30 20:22 WBC RBC Hgb Hct MCV MCH MCHC RDW Plt Count MPV Absolute Nucleated RBC Nucleated RBC % (auto) Sodium Potassium Chloride Carbon Dioxide Anion Gap BUN Creatinine Estim Creat Clear Calc Estimated GFR POC Glucose 269 H 229 H 236 H Fasting Glucose Calcium 03/20/22 03/20/22 03/20/22 06:40 06:40 07:09 WBC 6.8 RBC 3.92 L Hgb 9.8 L Hct 31.0 L MCV 79.1 L MCH 25.0 L MCHC 31.6 RDW 14.9 Plt Count 223 MPV 11.6 Absolute Nucleated RBC 0.000 Nucleated RBC % (auto) 0.0 Sodium 138 Potassium 4.2 Chloride 96 Carbon Dioxide 33 H Anion Gap 13 BUN 63 H D Creatinine 2.02 H Estim Creat Clear Calc 28.6 Estimated GFR 25 POC Glucose 187 H Fasting Glucose 207 H Calcium 8.5 Progress Note: A&P Assessment and plan (1) Acute CHF: Status: Acute Plan 66-year-old female presenting COVID-19 infection and multifocal pneumonia and congestive heart failure. Clinically she is improving. Continue IV diuretics today and change her to 40 mg p.o. b.i.d. Lasix from tomorrow. Hypoxia appears to be mostly due to multifocal pneumonia and COVID-19. Echocardiography was reviewed. Thank you for allowing me to participate in the care of your patient. Please feel free to contact me if you have any questions. Time Spent With Patient Time: Total time managing care of this patient today ____ minutes. Progress Note: Quality Stroke Does the patient have a stroke diagnosis?: No Procedures Date of Service Date of Service: 03/20/22
--- NOTE | 2022-03-20 12:00 | MHC.CM.PN ---
Per ROUNDS discussion, MD may do a home O2 eval and Patient may be able to return home today. CM will follow.
--- NOTE | 2022-03-20 14:03 | HO.PM.IMPN ---
Subjective Subjective Date of Service: 03/20/22 Interval History: cc: sob interval history:now mostly asymptomatic but significantly desaturating when ambulating Cardiovascular Cardiovascular: Reports no additional cardiovascular complaints Respiratory Respiratory: Reports no additional respiratory complaints Physical Exam Vital Signs: Vital Signs: Last Vital Signs Temp 96.8 F 03/20/22 11:17 Pulse 77 03/20/22 11:29 Resp 18 03/20/22 11:29 BP 164/98 H 03/20/22 11:17 Pulse Ox 91 L 03/20/22 11:17 O2 Del Method 03/20/22 11:17 O2 Flow Rate 1 03/20/22 11:17 Oxygen Flow Rate 2 03/14/22 22:37 BMI result Body Mass Index 38.9 GENERAL APPEARANCE: Short of breath. On supplemental oxygen. NECK: no carotid bruit, mild jugular venous distention. SKIN: no suspicious lesions, warm and dry. HEART: no murmurs, regular rate and rhythm. LUNGS: Crackles at bases. ABDOMEN: soft, nontender. EXTREMITIES: Trace edema bilateral. PERIPHERAL PULSES: equal. NEUROLOGIC: No gross deficits, AAO X 3 Objective Data Active Medications Acetaminophen (Acetaminophen 325 Mg Tablet) 650 mg PO Q6H PRN PRN Reason: Pain, Mild (Pain Scale 1-3) Last Admin: 03/16/22 04:14 Dose: 650 mg Documented By: NEVIN Al Hydroxide/Mg Hydroxide (Magnesium Hydrox/Alum Hydrox 30 Ml Oral.Susp) 15 ml PO Q4H PRN PRN Reason: heartburn Albuterol/Ipratropium (Albuterol/Iprat 2.5/0.5mg 3 Ml Ampul.Neb) 3 ml INHALE RQ4H PRN PRN Reason: Shortness of Breath/Wheezing Last Admin: 03/17/22 05:47 Dose: 3 ml Documented By: ZACH Albuterol/Ipratropium (Albuterol/Iprat 2.5/0.5mg 3 Ml Ampul.Neb) 3 ml INHALE RQ4H WHILE AWAKE [facility] Last Admin: 03/20/22 11:29 Dose: 3 ml Documented By: RHONDA Amlodipine Besylate (Amlodipine Besylate 5 Mg Tablet) 5 mg PO DAILY [facility]; Protocol Last Admin: 03/20/22 08:01 Dose: 5 mg Documented By: RAMU Aspirin (Aspirin Enteric Coated 81 Mg Tablet.) 81 mg PO DAILY [facility] Last Admin: 03/20/22 08:01 Dose: 81 mg Documented By: RAMU Atorvastatin Calcium (Atorvastatin Calcium 10 Mg Tablet) 10 mg PO BEDTIME [facility] Last Admin: 03/19/22 21:24 Dose: 10 mg Documented By: MELISSA Dexamethasone Sodium Phosphate (Dexamethasone Sod Phosphate 4 Mg/Ml Vial) 6 mg IVPUSH DAILY [facility] Last Admin: 03/20/22 08:00 Dose: 6 mg Documented By: RAMU Dextrose (Dextrose 50 % 25 Gm/50 Ml Syringe) 25 gm IVPUSH Q15M PRN; Protocol PRN Reason: per Hypoglycemia Standing Ord. Docusate Sodium (Docusate Sodium 100 Mg Capsule) 100 mg PO DAILY PRN PRN Reason: Constipation Ergocalciferol (Ergocalciferol (Vitamin D2) 1,250 Mcg Capsule) 1,250 mcg PO Q7D [facility] Last Admin: 03/15/22 08:25 Dose: 1,250 mcg Documented By: MOLLY Furosemide (Furosemide 40 Mg/4 Ml Vial) 40 mg IVPUSH BID@0900,1800 [facility]; Protocol Last Admin: 03/20/22 08:00 Dose: 40 mg Documented By: RAMU Glucose (Glucose Gel 15 Gm Gel..Gram.) 15 gm PO Q15M PRN; Protocol PRN Reason: per Hypoglycemia Standing Ord. Guaifenesin (Guaifenesin 200 Mg/10 Ml 10 Ml Liquid) 10 ml PO Q4H PRN PRN Reason: cough Last Admin: 03/18/22 03:22 Dose: 10 ml Documented By: MARILYN Guaifenesin/Dextromethorphan (Guaifenesin Dm 100/10/5 Ml 5 Ml Syrup) 10 ml PO TID [facility] Last Admin: 03/20/22 08:01 Dose: 10 ml Documented By: RAMU Heparin Sodium (Porcine) (Heparin Sodium,Porcine 5,000 Unit/Ml Vial) 5,000 unit SUBCUT Q12H [facility] Last Admin: 03/20/22 13:42 Dose: 5,000 unit Documented By: RAMU Insulin Glargine (Insulin Glargine,Hum.Rec.Anlog 100 Unit/Ml 10 Ml Vial) 45 unit SUBCUT DAILY [facility] Last Admin: 03/20/22 08:02 Dose: 45 unit Documented By: RAMU Insulin Human Lispro (Insulin Lispro 100 Unit/Ml 3 Ml Vial) 0 unit SUBCUT QIDACHS [facility]; Protocol Last Admin: 03/20/22 11:31 Dose: 14 unit Documented By: RAMU Metoprolol Succinate (Metoprolol Succinate Er 100 Mg Tab.Er.24h) 100 mg PO DAILY [facility]; Protocol Last Admin: 03/20/22 08:04 Dose: 100 mg Documented By: RAMU Mirtazapine (Mirtazapine 15 Mg Tablet) 45 mg PO BEDTIME [facility] Last Admin: 03/19/22 21:24 Dose: 45 mg Documented By: MELISSA Omeprazole (Omeprazole 20 Mg Capsule.Dr) 20 mg PO DAILY@0630 [facility] Last Admin: 03/20/22 05:59 Dose: 20 mg Documented By: MELISSA Ondansetron HCl (Ondansetron Hcl 4 Mg/2 Ml Vial) 4 mg IVPUSH Q8H PRN PRN Reason: Nausea and Vomiting Polyethylene Glycol (Polyethylene Glycol 3350 17 Gm Powd.Pack) 17 gm PO DAILY [facility] Last Admin: 03/20/22 08:01 Dose: 17 gm Documented By: RAMU Sodium Chloride (0.9 % Sodium Chloride Flush 3 Ml Syringe) 3 ml IVFLUSH QSHIFT [facility] Last Admin: 03/20/22 08:03 Dose: 3 ml Documented By: RAMU Valsartan (Valsartan 160 Mg Tablet) 160 mg PO DAILY [facility] Last Admin: 03/20/22 08:01 Dose: 160 mg Documented By: RAMU Labs CBC & Chem 7: 03/20/22 06:40 03/20/22 06:40 Labs: Laboratory Results - last 24 hr 03/19/22 03/19/22 03/20/22 15:30 20:22 06:40 MCV 79.1 L MCH 25.0 L MCHC 31.6 RDW 14.9 Plt Count 223 MPV 11.6 Absolute Nucleated RBC 0.000 Nucleated RBC % (auto) 0.0 Anion Gap Estim Creat Clear Calc Estimated GFR POC Glucose 229 H 236 H Fasting Glucose Calcium 03/20/22 03/20/22 03/20/22 06:40 07:09 11:15 MCV MCH MCHC RDW Plt Count MPV Absolute Nucleated RBC Nucleated RBC % (auto) Anion Gap 13 Estim Creat Clear Calc 28.6 Estimated GFR 25 POC Glucose 187 H 393 H* Fasting Glucose 207 H Calcium 8.5 03/20/22 11:20 MCV MCH MCHC RDW Plt Count MPV Absolute Nucleated RBC Nucleated RBC % (auto) Anion Gap Estim Creat Clear Calc Estimated GFR POC Glucose 397 H* Fasting Glucose Calcium Microbiology Microbiology Results: Microbiology 03/15/22 00:01 Blood Culture - Final Blood - Venous No growth after 5 days. 03/15/22 00:01 Blood Culture - Final Blood - Venous No growth after 5 days. Assessment and Plan (1) Acute respiratory failure with hypoxia: Status: Acute (2) Asthma with COPD (chronic obstructive pulmonary disease): Status: Acute (3) Hospital-acquired pneumonia: Status: Acute (4) COVID-19 virus infection: Status: Acute (5) New onset of congestive heart failure: Status: Acute (6) COPD exacerbation: Status: Acute (7) Hyperglycemia due to diabetes mellitus: Status: Acute Plan 66-year-old female with past medical history of moderate pesistent asthma, chronic tobacco user with no official diagnosis of COPD but lifelong smoker, presented to the hospital with complaints of shortness of breath after recent discharge from the hospital management of flu associated? asthma exacerbation acute hypoxic respiratory failure due to moderate persistent asthma/copd with acute decompensation due to covid 19 and acute on chronic diastolic chf continue decadron, bronchodilators, change to po lasix tomorrow monitor bmp wean o2 as toelrated - may need home o2 hypertension on multiple antihypertensive, Diovan 160 mg, Toprol-XL 100 mg, added low-dose Norvasc diabetes with hyperglycemia ( sec to steriods) continue lantus 45 units and sliding scale insulin,? diabetic diet chronic kidney disease stage IIIB stable hyperlipidemia continue statins ?DVT prophylaxis:? Heparin subQ reason for continued hospitalization:ongoing iv diuresis, hypoxia Time Spent With Patient Time: Total time managing care of this patient today ____ minutes. Quality Stroke Does the patient have a stroke diagnosis?: No VTE Prior VTE?: No VTE Risk Level:: Medical - moderate - high VTE Device Contraindication: Treatment Not Indicated VTE Drug Contraindication: N/A - Med Ordered
[2022-03-20] MEDS: Mirtazapine 15 MG TABLET 45 MG PO (21:08)
[2022-03-20] MEDS: Acetaminophen 325 MG TABLET 650 MG PO (21:08)
[2022-03-20] MEDS: Atorvastatin Calcium 10 MG TABLET PO (21:09)
[2022-03-21] MEDS: Heparin Sodium,Porcine 5,000 UNIT/ML VIAL 5000 UNIT SUBCUT (02:05)
[2022-03-21 03:44] VITALS: BP 178/74; PULSE 60; RESP 20; TEMP 36.4; O2SAT 84
[2022-03-21 06:00] VITALS: BMI 33.4
[2022-03-21 08:00] VITALS: BP 176/76; PULSE 63; RESP 19; TEMP 36.6; O2SAT 95
[2022-03-21 08:13] LABS: Hematocrit 32.3 % (37.0-47.0); Hemoglobin 10.3 g/dl (12.0-16.0); Mean Corpuscular HGB Conc 31.9 g/dl (31.0-35.0); Mean Corpuscular Hemoglobin 24.9 pg (27.0-33.0); Mean Corpuscular Volume 78.2 fL (80.0-98.0); Platelet Count 266 X10*3/uL (160-400); Red Blood Count 4.13 X10*6/uL (4.20-5.50); Red Cell Distribution Width 14.6 % (11.0-16.0); White Blood Count 7.8 X10*3/uL (4.8-10.8)
[2022-03-21] MEDS: Furosemide 40 MG TABLET PO (08:28)
[2022-03-21] MEDS: Aspirin Enteric Coated 81 MG TABLET.DR PO (08:28)
[2022-03-21] MEDS: amLODIPine Besylate 5 MG TABLET PO (08:28)
[2022-03-21] MEDS: Insulin Glargine,Hum.rec.anlog 100 UNIT/ML 10 ML VIAL 45 UNIT SUBCUT (08:29)
[2022-03-21] MEDS: Metoprolol Succinate ER 100 MG TAB.ER.24H PO (08:29)
[2022-03-21] MEDS: Insulin Lispro 100 UNIT/ML 3 ML VIAL SUBCUT (08:29)
[2022-03-21] MEDS: guaiFENesin DM 100/10/5 ML 5 ML SYRUP 10 ML PO (08:30)
[2022-03-21] MEDS: polyethylene glycoL 3350 17 GM POWD.PACK PO (08:31)
[2022-03-21] MEDS: Albuterol/Iprat 2.5/0.5MG 3 ML AMPUL.NEB INHALE ×2 (08:46→12:06)
[2022-03-21 08:48] LABS: Anion Gap 15 (12-20); Blood Urea Nitrogen 69 mg/dL (9-16); Calcium 8.7 mg/dL (8.4-10.2); Carbon Dioxide 33 mmol/L (22-29); Chloride 99 mmol/L (96-108); Creatinine Clr Calc Pharmacy 26.9; Estimated Glomerular Filt Rate 25; Glucose Fasting 159 mg/dL (60-99); Potassium 4.6 mmol/L (3.3-5.1); Sodium 142 mmol/L (135-145)
[2022-03-21 08:51] VITALS: PULSE 58; RESP 20; O2SAT 90
--- NOTE | 2022-03-21 09:41 | HO.PM.IMPN ---
Subjective Subjective Date of Service: 03/21/22 Interval History: cc: sob interval history:now mostly asymptomatic but significantly desaturating when ambulating Cardiovascular Cardiovascular: Reports no additional cardiovascular complaints Respiratory Respiratory: Reports no additional respiratory complaints Physical Exam Vital Signs: Vital Signs: Last Vital Signs Temp 97.9 F 03/21/22 08:00 Pulse 58 03/21/22 08:51 Resp 20 03/21/22 08:51 BP 176/76 H 03/21/22 08:00 Pulse Ox 95 03/21/22 08:00 O2 Del Method 03/21/22 08:00 O2 Flow Rate 1.0 03/21/22 08:00 Oxygen Flow Rate 2 03/14/22 22:37 BMI result Body Mass Index 33.4 GENERAL APPEARANCE: Short of breath. On supplemental oxygen. NECK: no carotid bruit, mild jugular venous distention. SKIN: no suspicious lesions, warm and dry. HEART: no murmurs, regular rate and rhythm. LUNGS: Crackles at bases. ABDOMEN: soft, nontender. EXTREMITIES: Trace edema bilateral. PERIPHERAL PULSES: equal. NEUROLOGIC: No gross deficits, AAO X 3 Objective Data Active Medications Acetaminophen (Acetaminophen 325 Mg Tablet) 650 mg PO Q6H PRN PRN Reason: Pain, Mild (Pain Scale 1-3) Last Admin: 03/20/22 21:08 Dose: 650 mg Documented By: SOWMYA Al Hydroxide/Mg Hydroxide (Magnesium Hydrox/Alum Hydrox 30 Ml Oral.Susp) 15 ml PO Q4H PRN PRN Reason: heartburn Albuterol/Ipratropium (Albuterol/Iprat 2.5/0.5mg 3 Ml Ampul.Neb) 3 ml INHALE RQ4H PRN PRN Reason: Shortness of Breath/Wheezing Last Admin: 03/17/22 05:47 Dose: 3 ml Documented By: ZACH Albuterol/Ipratropium (Albuterol/Iprat 2.5/0.5mg 3 Ml Ampul.Neb) 3 ml INHALE RQ4H WHILE AWAKE [facility] Last Admin: 03/21/22 08:46 Dose: 3 ml Documented By: MITZI Amlodipine Besylate (Amlodipine Besylate 5 Mg Tablet) 5 mg PO DAILY [facility]; Protocol Last Admin: 03/21/22 08:28 Dose: 5 mg Documented By: RAMU Aspirin (Aspirin Enteric Coated 81 Mg Tablet.) 81 mg PO DAILY [facility] Last Admin: 03/21/22 08:28 Dose: 81 mg Documented By: RAMU Atorvastatin Calcium (Atorvastatin Calcium 10 Mg Tablet) 10 mg PO BEDTIME [facility] Last Admin: 03/20/22 21:09 Dose: 10 mg Documented By: SOWMYA Dexamethasone Sodium Phosphate (Dexamethasone Sod Phosphate 4 Mg/Ml Vial) 6 mg IVPUSH DAILY [facility] Last Admin: 03/21/22 08:32 Dose: Not Given Documented By: RAMU Non-Admin Reason: Allergy Dextrose (Dextrose 50 % 25 Gm/50 Ml Syringe) 25 gm IVPUSH Q15M PRN; Protocol PRN Reason: per Hypoglycemia Standing Ord. Docusate Sodium (Docusate Sodium 100 Mg Capsule) 100 mg PO DAILY PRN PRN Reason: Constipation Ergocalciferol (Ergocalciferol (Vitamin D2) 1,250 Mcg Capsule) 1,250 mcg PO Q7D [facility] Last Admin: 03/15/22 08:25 Dose: 1,250 mcg Documented By: MOLLY Furosemide (Furosemide 40 Mg Tablet) 40 mg PO DAILY [facility]; Protocol Last Admin: 03/21/22 08:28 Dose: 40 mg Documented By: RAMU Glucose (Glucose Gel 15 Gm Gel..Gram.) 15 gm PO Q15M PRN; Protocol PRN Reason: per Hypoglycemia Standing Ord. Guaifenesin (Guaifenesin 200 Mg/10 Ml 10 Ml Liquid) 10 ml PO Q4H PRN PRN Reason: cough Last Admin: 03/18/22 03:22 Dose: 10 ml Documented By: MARILYN Guaifenesin/Dextromethorphan (Guaifenesin Dm 100/10/5 Ml 5 Ml Syrup) 10 ml PO TID [facility] Last Admin: 03/21/22 08:30 Dose: 10 ml Documented By: RAMU Heparin Sodium (Porcine) (Heparin Sodium,Porcine 5,000 Unit/Ml Vial) 5,000 unit SUBCUT Q12H [facility] Last Admin: 03/21/22 02:05 Dose: 5,000 unit Documented By: SOWMYA Insulin Glargine (Insulin Glargine,Hum.Rec.Anlog 100 Unit/Ml 10 Ml Vial) 45 unit SUBCUT DAILY [facility] Last Admin: 03/21/22 08:29 Dose: 45 unit Documented By: RAMU Insulin Human Lispro (Insulin Lispro 100 Unit/Ml 3 Ml Vial) 0 unit SUBCUT QIDACHS [facility]; Protocol Last Admin: 03/21/22 08:29 Dose: 2 unit Documented By: RAMU Metoprolol Succinate (Metoprolol Succinate Er 100 Mg Tab.Er.24h) 100 mg PO DAILY [facility]; Protocol Last Admin: 03/21/22 08:29 Dose: 100 mg Documented By: RAMU Mirtazapine (Mirtazapine 15 Mg Tablet) 45 mg PO BEDTIME [facility] Last Admin: 03/20/22 21:08 Dose: 45 mg Documented By: SOWMYA Omeprazole (Omeprazole 20 Mg Capsule.Dr) 20 mg PO DAILY@0630 [facility] Last Admin: 03/21/22 06:14 Dose: Not Given Documented By: SOWMYA Non-Admin Reason: Patient Asleep Ondansetron HCl (Ondansetron Hcl 4 Mg/2 Ml Vial) 4 mg IVPUSH Q8H PRN PRN Reason: Nausea and Vomiting Polyethylene Glycol (Polyethylene Glycol 3350 17 Gm Powd.Pack) 17 gm PO DAILY [facility] Last Admin: 03/21/22 08:31 Dose: 17 gm Documented By: RAMU Sodium Chloride (0.9 % Sodium Chloride Flush 3 Ml Syringe) 3 ml IVFLUSH QSHIFT [facility] Last Admin: 03/21/22 08:32 Dose: Not Given Documented By: RAMU Non-Admin Reason: No Access Valsartan (Valsartan 160 Mg Tablet) 160 mg PO DAILY [facility] Last Admin: 03/20/22 08:01 Dose: 160 mg Documented By: RAMU Labs CBC & Chem 7: 03/21/22 07:31 03/21/22 07:31 Labs: Laboratory Results - last 24 hr 03/20/22 03/20/22 03/20/22 11:15 11:20 16:14 MCV MCH MCHC RDW Plt Count MPV Absolute Nucleated RBC Nucleated RBC % (auto) Anion Gap Estim Creat Clear Calc Estimated GFR POC Glucose 393 H* 397 H* 339 H Fasting Glucose Calcium 03/20/22 03/21/22 03/21/22 21:03 07:31 07:31 MCV 78.2 L MCH 24.9 L MCHC 31.9 RDW 14.6 Plt Count 266 MPV 11.0 Absolute Nucleated RBC 0.000 Nucleated RBC % (auto) 0.0 Anion Gap 15 Estim Creat Clear Calc 26.9 Estimated GFR 25 POC Glucose 267 H Fasting Glucose 159 H Calcium 8.7 03/21/22 07:39 MCV MCH MCHC RDW Plt Count MPV Absolute Nucleated RBC Nucleated RBC % (auto) Anion Gap Estim Creat Clear Calc Estimated GFR POC Glucose 166 H Fasting Glucose Calcium Assessment and Plan (1) Acute respiratory failure with hypoxia: Status: Acute (2) Asthma with COPD (chronic obstructive pulmonary disease): Status: Acute (3) Hospital-acquired pneumonia: Status: Acute (4) COVID-19 virus infection: Status: Acute (5) New onset of congestive heart failure: Status: Acute (6) COPD exacerbation: Status: Acute (7) Hyperglycemia due to diabetes mellitus: Status: Acute Plan 66-year-old female with past medical history of moderate pesistent asthma, chronic tobacco user with no official diagnosis of COPD but lifelong smoker, presented to the hospital with complaints of shortness of breath after recent discharge from the hospital management of flu associated? asthma exacerbation acute hypoxic respiratory failure due to moderate persistent asthma/copd with acute decompensation due to covid 19 and acute on chronic diastolic chf continue decadron, bronchodilators, changed to po lasix monitor bmp wean o2 as toelrated - may need pulm rehab hypertension on multiple antihypertensive, Diovan 160 mg, Toprol-XL 100 mg, added low-dose Norvasc diabetes with hyperglycemia ( sec to steriods) continue lantus 45 units and sliding scale insulin,? diabetic diet chronic kidney disease stage IIIB stable hyperlipidemia continue statins ?DVT prophylaxis:? Heparin subQ reason for continued hospitalization:severe hypoxia on minimal exertion Time Spent With Patient Time: Total time managing care of this patient today ____ minutes. Quality Stroke Does the patient have a stroke diagnosis?: No VTE Prior VTE?: No VTE Risk Level:: Medical - moderate - high VTE Device Contraindication: Treatment Not Indicated VTE Drug Contraindication: N/A - Med Ordered
[2022-03-21 10:26] VITALS: PULSE 65; PULSE 71; PULSE 77; O2SAT 86; O2SAT 89; O2SAT 92
[2022-03-21] MEDS: Valsartan 160 MG TABLET PO (10:28)
--- NOTE | 2022-03-21 10:33 | PM.DS ---
DS: Providers Provider Date of Service: 03/21/22 Date of admission: 03/15/22 01:36 Primary care physician: Fatuma Sanchez MD Consults: 03/16/22 08:42 Consult to Infectious Diseases Routine Consulting Provider: Kay Amaya Reason for consultation: caute hypoxia-covid/pneumonia Has provider been notified: No 03/16/22 09:46 Consult to Cardiology Routine Consulting Provider: [facility] [place] Cardiovascular Services Reason for consultation: sob -possible chf excerebation Has provider been notified: No DS: Diagnosis Discharge Diagnosis (1) Acute respiratory failure with hypoxia: Status: Acute (2) Asthma with COPD (chronic obstructive pulmonary disease): Status: Acute (3) Hospital-acquired pneumonia: Status: Acute (4) COVID-19 virus infection: Status: Acute (5) New onset of congestive heart failure: Status: Acute (6) COPD exacerbation: Status: Acute (7) Hyperglycemia due to diabetes mellitus: Status: Acute DS: Summary Hospital Course Hospital Course: from initial hpi: Chief Complaint: sob ?66-year-old female with past medical history of COPD/ asthma, CKD, diabetes, hypertension presents to the hospital with complaints of difficulty breathing. ? of note patient was discharged from the hospital on 03/03 after being treated for asthma exacerbation secondary to influenza A.? Reports that after discharge she was still having difficulty with breathing but her symptoms worsened about 3 days ago.? Where she has increased difficulty breathing, sputum production, cough, as well as chills.? Patient reports that she has significant wheezing.? She denies having any chest pain, no abdominal pain, no nausea or vomiting, no diarrhea constipation, no urinary symptoms.? Patient is also complaining of orthopnea, PND, as well as lower extremity edema. ? On arrival to the ED patient found to have a hypoxia satting 88% on room air.? Labs are significant for? WBC count of 8.1, hemoglobin of 9.2, hematocrit 29.9, creatinine of 1.92 which is around her baseline, troponin of 62.2, BNP of 223, COVID-19 positive. ? Chest x-ray shows enlarged cardiac silhouette with central vascular prominence and peribronchial cuffing.? These findings are new from the prior study and could reflect component mild pulmonary edema hospital course: Patient was treated for acute hypoxic respiratory failure due to moderate persistent asthma/COPD with acute decompensation due to COVID-19 and acute on chronic diastolic CHF. She was treated with IV Decadron, bronchodilators, IV Lasix. Patient diuresed well and was transitioned to oral Lasix. Her symptoms completely resolved, however she was still noted to be hypoxic, this is likely chronic, on home oxygen evaluation she requires 3 L on exertion. For her hypertension she was continued on Diovan and Toprol. Due to elevated blood pressures she was added on 5 mg amlodipine. For diabetes with hyperglycemia she was given basal bolus insulin. For her CKD 3B she remained stable. For hyperlipidemia she was continued on statin. For obesity weight loss was recommended. Patient is feeling better will be discharged home. Time Spent with Patient Time attestation: Total time managing care of this patient today ____ minutes. Discharge coordination time: Greater than 30 minutes Quality: Safe Use of Opioids Does Pt have an Active Cancer Diagnosis on the Problem List?: No Quality: Stroke Does the patient have a stroke diagnosis?: No Physical Exam Vital Signs: Vital Signs: Last Vital Signs Temp 97.9 F 03/21/22 08:00 Pulse 58 03/21/22 08:51 Resp 20 03/21/22 08:51 BP 176/76 H 03/21/22 08:00 Pulse Ox 95 03/21/22 08:00 O2 Del Method 03/21/22 08:00 O2 Flow Rate 1.0 03/21/22 08:00 Oxygen Flow Rate 2 03/14/22 22:37 BMI result Body Mass Index 33.4 General: AO X 3, no acute distress Resp: CTA bilateral, no accessory muscles used CVS: S1,S2,RRR GI: soft, non tender, non distended Neuro: motor grossly intact, alert Psych: appropriate affect, appropriate insight DS: Data Data Completed and Pending Labs on day of discharge: Laboratory Results - last 24 hr 03/20/22 03/20/22 03/20/22 11:15 11:20 16:14 WBC RBC Hgb Hct MCV MCH MCHC RDW Plt Count MPV Absolute Nucleated RBC Nucleated RBC % (auto) Sodium Potassium Chloride Carbon Dioxide Anion Gap BUN Creatinine Estim Creat Clear Calc Estimated GFR POC Glucose 393 H* 397 H* 339 H Fasting Glucose Calcium 03/20/22 03/21/22 03/21/22 21:03 07:31 07:31 WBC 7.8 RBC 4.13 L Hgb 10.3 L Hct 32.3 L MCV 78.2 L MCH 24.9 L MCHC 31.9 RDW 14.6 Plt Count 266 MPV 11.0 Absolute Nucleated RBC 0.000 Nucleated RBC % (auto) 0.0 Sodium 142 Potassium 4.6 Chloride 99 Carbon Dioxide 33 H Anion Gap 15 BUN 69 H Creatinine 1.97 H Estim Creat Clear Calc 26.9 Estimated GFR 25 POC Glucose 267 H Fasting Glucose 159 H Calcium 8.7 03/21/22 07:39 WBC RBC Hgb Hct MCV MCH MCHC RDW Plt Count MPV Absolute Nucleated RBC Nucleated RBC % (auto) Sodium Potassium Chloride Carbon Dioxide Anion Gap BUN Creatinine Estim Creat Clear Calc Estimated GFR POC Glucose 166 H Fasting Glucose Calcium Discharge Plan Discharge Anticipated Discharge Date/Time: 03/21/22 10:30 Patient Disposition: Home, Self-Care Discharge Diagnosis: covid, chf Referrals: Fatuma Sanchez MD [Primary Care Provider] - 1 Week Discharge Medications: New amlodipine 5 mg Tablet 5 mg PO DAILY Qty: 30 0RF Protocol: Hold for SBP< HOLD for SBP < : 90 aspirin 81 mg Tablet,Delayed Release (Dr/Ec) 81 mg PO DAILY Qty: 30 0RF furosemide 40 mg Tablet 40 mg PO DAILY Qty: 30 0RF Protocol: Hold for SBP< HOLD for SBP < : 90 prednisone 20 mg tablet 40 mg PO DAILY Qty: 6 0RF Continued metoprolol succinate 100 mg Tablet Extended Release 24 Hr 100 mg PO DAILY omeprazole 20 mg Tablet,Delayed Release (Dr/Ec) 20 mg PO DAILY@0630 fluticasone propionate [Flovent HFA] 220 mcg/actuation HFA aerosol inhaler 2 puff inhalation BID (DME) pen needle, diabetic [BD Ultra-Fine Mini Pen Needle] 31 gauge x 3/16 needle MISCELLANEOUS TID albuterol sulfate 2.5 mg /3 mL (0.083 %) solution for nebulization 2.5 mg inhalation Q4H PRN (Reason: Shortness Of Breath Or Wheezing) albuterol sulfate 90 mcg/actuation HFA aerosol inhaler 2 puff INHALATION Q4H PRN (Reason: wheezing) insulin glargine [Lantus U-100 Insulin] 100 unit/mL solution 36 unit subcut DAILY simvastatin 10 mg tablet 10 mg PO BEDTIME (DME) OneTouch Ultra Test Strip MISCELLANEOUS QID mirtazapine 45 mg tablet 45 mg PO BEDTIME (DME) insulin syringe-needle U-100 1 mL 31 gauge x 5/16 syringe subcut BID ergocalciferol (vitamin D2) 1,250 mcg (50,000 unit) capsule 1,250 mcg PO QWEEK lorazepam 1 mg tablet 1 mg PO BID PRN (Reason: Insomnia) zolpidem 10 mg tablet 10 mg PO BEDTIME PRN (Reason: insomnia) olmesartan 40 mg tablet 40 mg PO DAILY Hold Instructions: Resume on 02/18/21. hold until seen by pcp, repeat bmp,further use for pcp and nephro outpatiently. Discharge Orders: Discharge Order (Routine); Ordered 03/21/22 Ordered By: Geovanni Rodriges Diet: Advance to usual diet Activity on Discharge: As tolerated Stand Alone Forms: Patient Portal Discharge page Care Plan Goals: recovery Health Concerns: chf, covid, copd Plan of Treatment: meds as prescribed, o2 3L on ambulation Assessment: see above
--- NOTE | 2022-03-21 11:20 | MHC.CM.PN ---
PT WILL DC HOME TODAY WITH NO SERVICES PT TO ARRANGE TRANSPORT
[2022-03-21 12:12] VITALS: PULSE 57; RESP 20; O2SAT 91
--- NOTE | 2022-03-21 13:16 | MHC.CM.PN ---
pt dcd home no skilled servceis ordered by
== END 2022-03-21 14:11 | disposition home or self-care (01) | DRG 177 ==
LOC: HO.ED 03-15 00:54 → HO.EDOVER 03-15 01:40 → HO.IMC 03-15 03:19
PROVIDERS: Hospitalist; Internal Medicine; Admitting Provider Internal Medicine; Emergency Provider Emergency Medicine; PCP Internal Medicine; Visit Provider Internal Medicine
DX: U07.1 COVID-19 (principal); I50.33 Acute on chronic diastolic (congestive) heart failure; J18.9 Pneumonia, unspecified organism; J96.01 Acute respiratory failure with hypoxia; I13.0 Hypertensive heart and chronic kidney disease with heart failure and stage 1 through stage 4 chronic kidney disease, or unspecified chronic kidney disease; J44.0 Chronic obstructive pulmonary disease with (acute) lower respiratory infection; J44.1 Chronic obstructive pulmonary disease with (acute) exacerbation; N18.32 Chronic kidney disease, stage 3b; E11.65 Type 2 diabetes mellitus with hyperglycemia; E11.22 Type 2 diabetes mellitus with diabetic chronic kidney disease; E78.5 Hyperlipidemia, unspecified; E66.9 Obesity, unspecified; J45.40 Moderate persistent asthma, uncomplicated; Z68.33 Body mass index [BMI] 33.0-33.9, adult; Y95 Nosocomial condition; F17.210 Nicotine dependence, cigarettes, uncomplicated; Z71.6 Tobacco abuse counseling; Z88.5 Allergy status to narcotic agent; Z79.51 Long term (current) use of inhaled steroids; Z79.82 Long term (current) use of aspirin; Z79.899 Other long term (current) drug therapy
CPT/HCPCS: 0241U; 36415; 36600; 71045; 80048; 80061; 80076; 80202; 82565; 82803; 82947; 83605; 83880; 84145; 84484; 85025; 85027; 85610; 87040; 87640; 87641; 93005; 93306; 94640; 94664; 96365; 96366; 96375; 97161; 97530; 99285; J0456; J0692; J0696; J1100; J1940; J2930; J3370; J3475; Q9957